=== PATIENT | female | born 1930 | race Caucasian/White ===

== ENCOUNTER 2016-02-22 13:50 | Inpatient (IN) | payer MEDICARE ==
[~2016-02-22] VITALS: Ht 157.5 cm; Wt 84.0 kg
[2016-02-22 13:46] VITALS: BP 176/63; PULSE 71; RESP 19; O2SAT 94
--- NOTE | 2016-02-22 14:09 | ED.REPORT ---
HPI-Trauma Minor / Fall Date of Service Feb 22, 2016 ED Provider: Raleigh Grimes MD 85 year old female with a hx of HTN, pacemaker (October 2013), CHF, CKD stage IV and osteoporosis presents with L humerus pain after falling 1 hour ago. Pain is exacerbated with movement. Pt was shopping at the [employer] when she suddenly fell in the aisle. Her family did not witness the event but heard the fall and were able to assess the patient right away. Pt is unsure if she tripped or if she had a syncopal episode. LOC is questionable. Pt has hx of similar with low BP. She had a pacemaker implanted 2 years ago. Additionally she complains of R knee pain with movement. Pt denies head trauma, neck pain, CP , SOB and is not anticoagulated. Nursing Notes Stated Complaint: WEAKNESS Chief Complaint: General Complaint Nursing Notes Reviewed: Yes Allergies: Coded Allergies: No Known Allergies (Unverified , 02/22/16) Scheduled Alendronate/Vitamin D3 (Alendronate/Vitamin D3) 1 Each Tablet 1 EACH PO WEEKLY Sundays Amlodipine (Amlodipine) 5 Mg Tablet 5 MG PO QAM Aspirin (Aspirin) 325 Mg Tablet 325 MG PO QAM Atorvastatin Calcium (Atorvastatin Calcium) 40 Mg Tablet 40 MG PO QAM Cyanocobalamin (Vitamin B-12) (Vitamin B-12) 1,000 Mcg Tab.subl 1,000 MCG SL QAM Ferrous Sulfate (Ferrous Sulfate) 325 Mg Tablet 325 MG PO QAM Furosemide (Furosemide) 20 Mg Tab 20 MG PO QAM Hydralazine (Hydralazine) 25 Mg Tablet 25 MG PO TID Metoprolol Tartrate (Metoprolol Tartrate) 75 Mg Tablet 75 MG PO BID [place]-3/Dha/Epa/Fish Oil (Fish Oil 1,000 mg Softgel) 1 Each Capsule 1 EACH PO QAM Ranitidine (Zantac) 150 Mg Tablet 150 MG PO BID Sertraline HCl (Sertraline) 50 Mg Tablet 50 MG PO QAM Scheduled PRN Acetaminophen (Acetaminophen) 325 Mg Tablet 650 MG PO QID PRN PRN For Pain Meclizine (Bonine) 25 Mg Tab.chew 12.5 MG PO TID PRN PRN vertigo General Time Seen by MD: 13:59 Chief Complaint Fall Hx Obtained From: Patient, Other family..., EMS Arrived By: Ambulance Onset Occurred: Just prior to arrival Symptom Duration: Since onset Caused by: Fall on ground Location: Arm left Quality: Painful Severity: Current: Moderate Associated with: Reports: Loss of consciousness (questionable), Denies: Chest pain, Headache, Neck pain, Shortness of breath, Vomiting Exacerbated by: Movement Past Medical History Past Medical History HTN, pacemaker (October 2013), CHF, CKD stage IV and osteoporosis Past Surgical History Reports: Pacemaker insertion Smoking History Unknown if Ever Smoker Social History Other Social History: Good social support Ambulatory Status Independent Review of Systems Basic Review of Systems Cardiovascular: No chest pain, No dyspnea on exertion, No orthopnea, No parox noct dyspnea, No palpitations GI: No abdominal pain, No anorexia, No nausea, No vomiting Constitutional: Denies: Fever Respiratory: Denies: Non-productive cough, Shortness of breath Musculoskeletal: Reports: Extremity pain, Denies: Back pain, Neck pain Neurologic: Reports: Change LOC (questionable), Denies: Headache, Numbness Complete sys rev & neg: except as marked. Physical Exam Initial Vital Signs Vital Signs (First) Date Time Temp Pulse Resp B/P Pulse Ox O2 Delivery O2 Flow Rate FiO2 02/22/16 13:46 36.3 71 19 176/63 94 Room Air Initial VS: Reviewed ENT: Conjunctiva normal, No scleral icterus Respiratory: Breath sounds normal, Clear to auscultation, No respiratory distress Cardiovascular: Regular rate & rhythm, Heart sounds normal, Intact distal pulses Abdomen / GI: Soft, Non-tender Skin: Warm, Dry, No cyanosis Neurologic: Alert, Oriented, Nonfocal Psychiatric: Mood/affect normal, Behavior normal, Normal thought content General/Constitutional: Awake, Alert, Cooperative Neck: Atraumatic, Supple, Full range of motion, No midline vertebral tend Head / Eyes: Atraumatic, Normocephalic, PERRL Upper Extremity / MS: Neurologic intact, Vascular intact TTP L shoulder Median, radial and ulnar nerves intact Lower Extremity / Pelvis / MS: Neurologic intact, Vascular intact Good ROM of R knee Small effusion R knee No significant tenderness to patella Interpretation & Diagnostics Lab Results Interpretation Result Diagram: 02/22/16 1440 02/22/16 1440 Test 02/22/16 14:40 White Blood Count 8.1th/mm3 (3.8-10.1) Red Blood Count 3.26mil/mm3 (3.90-5.20) Hemoglobin 9.4g/dL (12.0-15.6) Hematocrit 29.4% (35.0-46.0) Mean Corpuscular Volume 90.2fL (81-100) Mean Corpuscular Hemoglobin 28.8pg (27.0-35.0) Mean Corpuscular Hemoglobin Concent 32.0% (32.0-37.0) Red Cell Distribution Width 15.0% (12.3-15.4) Platelet Count 289bil/L (150-400) Neutrophils (%) (Auto) 66.8% (40-74) Lymphocytes (%) (Auto) 18.5% (14-46) Monocytes (%) (Auto) 10.2% (4-12) Eosinophils (%) (Auto) 3.4% (0-5) Basophils (%) (Auto) 0.5% (0-3) Sodium Level 137mEq/L (134-144) Potassium Level 4.0mEq/L (3.5-5.2) Chloride Level 98mEq/L (97-108) Carbon Dioxide Level 25mmol/L (18-29) Blood Urea Nitrogen 31mg/dL (8-27) Creatinine 1.87mg/dL (0.57-1.00) Estimat Glomerular Filtration Rate 37mL/min (>59) Glucose Level 109mg/dL (60-99) Calcium Level 8.5mg/dL (8.5-10.1) Total Bilirubin 0.6mg/dL (0.0-1.2) Aspartate Amino Transf (AST/SGOT) 24U/L (0-50) Alanine Aminotransferase (ALT/SGPT) 26U/L (0-32) Alkaline Phosphatase 88U/L (25-165) Total Protein 7.1g/dL (6.4-8.4) Albumin 4.0g/dL (3.4-5.0) General Lab Results Interp 1: Labs reviewed ECG Interpretation ECG Interpretation: Paced rhythm with a rate of 68. Time: 14:52 Interpreted by: ED physician X-Ray Interpretation Xray Interpretation: IMPRESSION: Comminuted patellar fracture. Dictated by: Funmilayo Javed MD, PhD on 02/22/2016 at 15:10 X-Ray Ordered: Knee right Interpretation / Wet Read by: Interpret - Radiologist Xray Interpretation: IMPRESSION: Left humeral head/neck fracture. Dictated by: Angelito BLISS Interpreted: Funmilayo Javed MD on 02/22/2016 at 15:05 X-Ray Ordered: Shoulder left Interpretation / Wet Read by: Interpret - Radiologist Re-Eval/Medical Decision Med Decision/Clinical Course 85 y.o. female with a possibly syncopal fall. She has 2 orthopedic injuries which are nonoperative would not individually render her immobile, I think she has a poor chance of being able to care for herself at home presently. Will admit to the hospitalist service for observation given concerned about syncope and hopefully can have a PT evaluation for safety and ambulation. Re-Evaluation/Progress : Time of Eval: 15:49 Re-Evaluation/Progress Note: Pt resting comfortably in bed. Updated pt of labs, ECG and imaging results. Recommended admission. Pt and family understand and agree with plan. All questions addressed. Code status discussed in the presence of family. Pt is DNR/DNI. Consultation #1: Referral / Consult Name: Kelvin Weber MD Consulted With: Orthopedic Call Returned at: 15:18 Note: Agrees it is likely to difficult to be mobile at home with outpatient follow up. Knee immobilizer knee. Sling for shoulder. Both fractures are non-operative. Consultation #2: Referral / Consult Name: Jonathan Klein MD Consulted With: Hospitalist Call Returned at: 16:18 Plaster Foreman: Will see patient, Agrees with eval, Agrees with plan, Accepts admit Counseled Regarding: Diagnosis, Lab results, Need for admission Discharge & Departure Impression: Primary Impression: Syncope Syncope type: unspecified Qualified Code: R55 - Syncope and collapse Additional Impressions: Fracture of humeral head, left, closed Encounter type: initial encounter Qualified Code: S42.292A - Other displaced fracture of upper end of left humerus, initial encounter for closed fracture Patellar fracture Encounter type: initial encounter Fracture type: closed Fracture morphology : comminuted Fracture alignment: displaced Laterality: right Qualified Code: S82.041A - Displaced comminuted fracture of right patella, initial encounter for closed fracture Disposition: ADMITTED TO HOSPITAL Discharge Condition All VS Reviewed: Yes Condition: Improved Scribe Attestation Portions of this note were transcribed by Vandana Rivera. I, (Dr. Grimes) personally performed the history, physical exam and medical decision-making; I reviewed and confirmed the accuracy of the information in the transcribed note. Signed by: Vandana Rivera. 02/22/2016, 1620 Raleigh Grimes MD Feb 22, 2016 14:09 Vandana Rivera Feb 22, 2016 14:15
[2016-02-22] MEDS ORDERED: HYDROmorphone 1 mg/mL Inj IM ONE (14:10)
[2016-02-22] MEDS ORDERED: Ondansetron 8 mg ODT Tablet PO ONE (14:10)
[2016-02-22 14:48] LABS: BASOPHILS % (AUTO) 0.5 % (0-3); EOSINOPHILS % (AUTO) 3.4 % (0-5); MONOCYTES % (AUTO) 10.2 % (4-12); Mean Corpuscular Hemoglobin 28.8 pg (27.0-35.0); Mean Corpuscular Volume 90.2 fL (81-100); NEUTROPHILS % (AUTO) 66.8 % (40-74); Platelet Count 289 bil/L (150-400)
--- NOTE | 2016-02-22 15:06 | DRSVH ---
PROCEDURE: X-RAY LEFT SHOULDER, MINIMUM TWO VIEWS ([id number]) INDICATIONS: shoulder/knee pain post fall TECHNIQUE: 3 views of the shoulder were acquired. COMPARISON: None. FINDINGS: Bones: Comminuted, mildly impacted left humeral head/neck fracture is present. Acromioclavicular linda nt is intact. No rib fracture seen. No pneumothorax. Soft tissues: No suspicious soft tissue calcifications. IMPRESSION: Left humeral head/neck fracture. Dictated by: Angelito BLISS Interpreted: Funmilayo Javed MD on 02/22/2016 at 15:05 Transcribed by: AARON on 02/22/2016 at 15:05 Approved by: Funmilayo Javed MD, PhD on 02/22/2016 at 16:11
--- NOTE | 2016-02-22 15:12 | DRSVH ---
PROCEDURE: X-RAY RIGHT KNEE, THREE VIEWS ([id number]) INDICATIONS: shoulder/knee pain post fall TECHNIQUE: 3 views of the knee were acquired. COMPARISON: None. FINDINGS: Bones: Comminuted fracture of the patella is noted. Soft tissues: Small suprapatellar joint effusion is noted. No suspicious soft tissue calcifications. IMPRESSION: Comminuted patellar fracture. Dictated by: Funmilayo Javed MD, PhD on 02/22/2016 at 15:10 Approved by: Funmilayo Javed MD, PhD on 02/22/2016 at 15:10
[2016-02-22] MEDS ORDERED: Polyethylene Glycol (PEG) 17 Gm Powder PO PRN (16:45)
[2016-02-22] MEDS ORDERED: Ondansetron 2 mg/mL 2 mL Inj IVPUSH PRN (16:45)
[2016-02-22] MEDS ORDERED: Alum-Mag Hydrox-Simeth 30 mL Suspension PO PRN (16:45)
[2016-02-22] MEDS ORDERED: METO75TA PO (16:56)
[2016-02-22] MEDS ORDERED: ASPI325T32 PO (16:56)
[2016-02-22] MEDS ORDERED: OMEG-38 PO (16:56)
[2016-02-22] MEDS ORDERED: ACET325T51 PO (16:56)
[2016-02-22] MEDS ORDERED: FUR20 PO (16:56)
[2016-02-22] MEDS ORDERED: ATOR40TA69 PO (16:56)
[2016-02-22] MEDS ORDERED: CYAN100017 SL (16:56)
[2016-02-22] MEDS ORDERED: ALEN70TA46 PO (16:56)
[2016-02-22] MEDS ORDERED: SERT50TA9 PO (16:56)
[2016-02-22] MEDS ORDERED: AMLO5TAB2 PO (16:56)
[2016-02-22] MEDS ORDERED: HYDR-3939 PO (16:56)
[2016-02-22] MEDS ORDERED: RANI150T11 PO (16:56)
[2016-02-22] MEDS ORDERED: FERR-83 PO (16:56)
[2016-02-22] MEDS ORDERED: MECL-114 PO (16:56)
--- NOTE | 2016-02-22 18:13 | PCM.HPMED ---
Subjective Date of Service Feb 22, 2016 Primary Provider: Admitting Physician: Jonathan Klein MD Primary Care Physician: Dinorah Attending Physician: Jonathan Klein MD Admit Status: From the Emergency Department, Admit to Red Team Chief Complaint: fall//1 h History of Present Illness: 85-year-old lady with past medical history of hypertension, CKD4, osteoporosis, pacemaker insertion 2014 was brought in by her daughters due to fall 1 or prior to presentation. Patient is from [place], came here to visit her daughter. She was in the mall with her daughter when she fell.daughter and family member were around the corner of [place] and did not see the patient fall.patient remembers falling down. No loss of consciousness. She denies feeling lightheaded or dizzy before falling.patient does not remember tripping over hitting anything.she was brought in for right knee and left shoulder pain. Did not hit head She has been eating and drinking as usual. She had 2 episodes of diarrhea this morning. She was recently started on diuretic for CHF. Lasix 20 mg by mouth daily Denies fever. Denies chest pain. Denies palpitation ED course: initial BP 176/63, heart rate 71, x-ray showed right patellar fracture and left humeral fracture Labs unremarkable except BNP 31, creatinine 1.87, hemoglobin 9.4 Review of Systems: A comprehensive review of systems performed. Pertinent positive and negatives included in history of present illness Allergies Coded Allergies: No Known Allergies (Unverified , 02/22/16) Home Medications Amlodipine 5 mg daily Aspirin 325 mammogram by mouth daily Atorvastatin 40 mg by mouth daily B12 1000 MCG daily iron sulfate 325 mg by mouth daily Fish oil 1000 mg by mouth daily Hydralazine 25 mg by mouth 3 times a day Metoprolol tartrate 50 mg by mouth twice a day Ranitidine 150 mg. He Sertraline 50 mg by mouth daily Alendronate 70 mg by mouth on Sundays PMH Hypertension CKD Osteoporosis CHF Surgical History Pacemaker insertion Cholecystectomy Hysterectomy Left tibial jazmyn Family History Reviewed and noncontributory Social History Hx Alcohol Use: No Hx Substance Use: No Smoking Status: Unknown if Ever Smoker Exam Vital Signs Vital Sign - Last Date Time Temp Pulse Resp B/P Pulse Ox O2 Delivery O2 Flow Rate FiO2 02/22/16 13:46 36.3 71 19 176/63 94 Room Air Exam Gen. patient is lying comfortably in hospital bed HEENT: Dry tongue and bucal mucosa.Head is normocephalic atraumatic, Pupils equal and reactive, extraocular movements intact, Lungs clear to auscultation bilaterally Heart regular rate and rhythm without murmurs gallops or rubs Abdomen soft nontender without hepatosplenomegaly Extremities :tenderness on left shoulder and right knee on passive movement Psych alert and oriented to person place and time Neuro cranial nerves II through XII are grossly intact Lymph: There is no lymphadenopathy appreciated in the cervical supra infraclavicular regions : no hernandez Lab and Diagnostics Result Diagram: 02/22/16 1440 02/22/16 1440 X-Rays, CTs and MRIs PROCEDURE: X-RAY RIGHT KNEE, THREE VIEWS ([id number]) INDICATIONS: shoulder/knee pain post fall TECHNIQUE: 3 views of the knee were acquired. COMPARISON: None. FINDINGS: Bones: Comminuted fracture of the patella is noted. Soft tissues: Small suprapatellar joint effusion is noted. No suspicious soft tissue calcifications. IMPRESSION: Comminuted patellar fracture. Dictated by: Funmilayo Javed MD, PhD on 02/22/2016 at 15:10 PROCEDURE : X-RAY LEFT SHOULDER, MINIMUM TWO VIEWS ([id number]) shoulder XR INDICATIONS: shoulder/knee pain post fall TECHNIQUE: 3 views of the shoulder were acquired. COMPARISON: None. FINDINGS: Bones: Comminuted, mildly impacted left humeral head/neck fracture is present. Acromioclavicular joint is intact. No rib fracture seen. No pneumothorax. Soft tissues: No suspicious soft tissue calcifications. IMPRESSION: Left humeral head/neck fracture. Dictated by: Angelito Baum [facility] Interpreted: Funmilayo Javed MD on 02/22/2016 at 15:05 Assessment & Plan 85-year-old lady with past medical history of hypertension, CKD4, osteoporosis, pacemaker insertion 2013 was brought in by her daughters due to fall # Suspected syncope, POA, acute -fall most likely due to syncope given patient does not remember the entire circumstance of fall -Syncope likely due to dehydration given diarrhea this morning,dry tongue, recent initiation of diuretic -will request pacemaker interrogation -NS 80ml/h -Discontinue Lasix # Left Humerus and right patella fracture -Pain control with morphine -ED consulted orthopedics, recommended nonoperative management -PT eval -dvt Prophylaxis tomorrow if no procedures planned #Hypertension -Resume home amlodipine and hydralazine # Recent diagnosis of CHF - Dehydrated clinically, stop Lasix - Continue metoprolol Discussed CODE STATUS, she is DNR/DNI Patient admitted under inpatient status with expected length of stay > 2 midnights for severity of present symptoms, complexities of treatment plan and risk for adverse events Jonathan Klein MD Feb 22, 2016 18:13
[2016-02-22 18:22] VITALS: BP 167/67; PULSE 69; RESP 16; O2SAT 94
[2016-02-22 18:34] VITALS: BP 155/74; PULSE 65; RESP 20; O2SAT 90
[2016-02-22] MEDS: 0.9% Sodium Chloride 1,000 ML IV SCH (18:37)
--- NOTE | 2016-02-22 18:42 | PCM.CONORT ---
Subjective Date of Surgery: Feb 22, 2016 Surgeon Admitting Provider:Jonathan Klein MD Attending Provider:Jonathan Klein MD Primary Care Physician:Dinorah Orthopedic surgeon: Kelvin Weber M.D. 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 She is visiting the [facility] from her home in [place], [place]. The patient unfortunately collapsed in a local retail store, striking her right knee and left shoulder as she fell. The patient is unsure of the exact mechanism of injury as there may have been a brief loss of consciousness about the time of the fall. The patient could not weight-bear through her painful right knee or use her painful left shoulder after the incident. The injuries were closed and not associated with any neurovascular symptoms. The patient was brought by ambulance to [facility] emergency room where x-rays of her right knee and left shoulder revealed a comminuted, minimally displaced right patella fracture and moderately comminuted and impacted left proximal humerus surgical neck fracture. The patient was admitted to the hospitalist service for further evaluation and workup. An orthopedic surgical consultation has been requested for treatment advice regarding her right knee and left shoulder injuries. The patient denies prior history of left shoulder or right knee symptomatology or trauma. Allergy Allergies: Coded Allergies: No Known Allergies (Unverified , 02/22/16) Medications Acetaminophen (Acetaminophen) 325 Mg Tablet 650 MG PO QID PRN PRN For Pain ( Reported) Alendronate/Vitamin D3 (Alendronate/Vitamin D3) 1 Each Tablet 1 EACH PO WEEKLY ( Reported) Sundays Last Taken: Unknown Dose on 02/17/16 Amlodipine (Amlodipine) 5 Mg Tablet 5 MG PO QAM (Reported) Last Taken: Unknown Dose on 02/22/16 0800 Aspirin (Aspirin) 325 Mg Tablet 325 MG PO QAM (Reported) Last Taken: Unknown Dose on 02/22/16 0800 Atorvastatin Calcium ( Atorvastatin Calcium) 40 Mg Tablet 40 MG PO QAM (Reported) Last Taken: Unknown Dose on 02/22/16 0800 Cyanocobalamin (Vitamin B-12) ( Vitamin B-12) 1,000 Mcg Tab.subl 1,000 MCG SL QAM (Reported) Last Taken: Unknown Dose on 02/22/16 0800 Ferrous Sulfate (Ferrous Sulfate) 325 Mg Tablet 325 MG PO QAM (Reported) Last Taken: Unknown Dose on 02/22/16 08 Furosemide (Furosemide) 20 Mg Tab 20 MG PO QAM (Reported) Last Taken: Unknown Dose on 02/22/16 08 Hydralazine (Hydralazine) 25 Mg Tablet 25 MG PO TID (Reported) Last Taken: Unknown Dose on 02/22/16799 Meclizine (Bonine) 25 Mg Tab.chew 12.5 MG PO TID PRN PRN vertigo (Reported) Metoprolol Tartrate (Metoprolol Tartrate) 75 Mg Tablet 75 MG PO BID (Reported) Last Taken: Unknown Dose on 02/22/16 08 [place]-3/Dha/Epa/Fish Oil (Fish Oil 1,000 mg Softgel) 1 Each Capsule 1 EACH PO QAM (Reported) Last Taken: Unknown Dose on 02/22/16799 Ranitidine (Zantac) 150 Mg Tablet 150 MG PO BID (Reported) Last Taken: Unknown Dose on 02/22/16799 Sertraline HCl (Sertraline) 50 Mg Tablet 50 MG PO QAM (Reported) Last Taken: Unknown Dose on 02/22/16 0800 History History of ENT Problems?: No Hx of Heart Problems?: Yes Cardiovascular History: Positive for:: Congestive Heart Failure Pacemaker Denies:: Hypertension Hx of Respiratory Problem?: Yes Other Resp Pertinent History: diagnosed with sleep apnea, not set up with cpap yet Hx Neurologic Problems?: Yes Neurological History: Positive for:: Dizziness (syncopal episodes) Hx of GI Problems?: No Hx of Problems?: Yes Genitourinary History: Positive for:: Urinary Tract Infection Other Pertinent History: CKD stage 3 Female Hx: Denies:: Currently Endometriosis Pelvic Inflammatory Problems with Breasts? Hx Musculoskeletal Problems?: Yes Hx of Psycho/Social Problems?: Yes Psycho Social History: Positive for:: Hx Depression Hx Surgeries?: Yes (pacemaker) Hx Any Other Health Problems?: Yes Other History: Positive for:: Hospitalization Denies:: Cancer Thyroid Disease History Blood Transfusions: Positive for:: Accept Blood Products? Denies:: Blood Transfusions Hx Diabetes: Yes (diet-controlled) Hx Alcohol Use: NoHx Substance Use: No Smoking Status: Unknown if Ever Smoker Objective Exam Objective Imaging Patient Name: JALEN UQEZADA MR#: [id number] Location: [facility] Ordering Phys: Raleigh Grimes MD Date of Service: 02/22/161408 PROCEDURE: X-RAY RIGHT KNEE, THREE VIEWS ([id number]) INDICATIONS: shoulder/knee pain post fall TECHNIQUE: 3 views of the knee were acquired. COMPARISON: None. FINDINGS: Bones: Comminuted fracture of the patella is noted. Soft tissues: Small suprapatellar joint effusion is noted. No suspicious soft tissue calcifications. IMPRESSION: Comminuted patellar fracture. Dictated by: Funmilayo Javed MD, PhD on 02/22/2016 at 15:10 Approved by: Funmilayo Javed MD, PhD on 02/22/2016 at 15:10 Patient Name: JALEN QUEZADA MR#: [id number] Location: [facility] Ordering Phys: Raleigh Grimes MD Date of Service: 02/22/161408 PROCEDURE: X-RAY LEFT SHOULDER, MINIMUM TWO VIEWS ([id number]) INDICATIONS: shoulder/knee pain post fall TECHNIQUE: 3 views of the shoulder were acquired. COMPARISON: None. FINDINGS: Bones: Comminuted, mildly impacted left humeral head/neck fracture is present. Acromioclavicular joint is intact. No rib fracture seen. No pneumothorax. Soft tissues: No suspicious soft tissue calcifications. IMPRESSION: Left humeral head/neck fracture. Dictated by: Angelito Baum [facility] Interpreted: Funmilayo Javed MD on 02/22/2016 at 15:05 Transcribed by: AARON on 02/22/2016 at 15:05 Approved by: Funmilayo Javed MD, PhD on 02/22/2016 at 16:11 Vital Signs & I/O Vital Sign- Last 8 Hours Date Time Temp Pulse Resp B/P Pulse Ox O2 Delivery O2 Flow Rate FiO2 02/22/16 13:46 36.3 71 19 176/63 94 Room Air Lab & Micro Results Laboratory Tests Test 02/22/16 14:40 White Blood Count 8.1th/mm3 (3.8-10.1) Red Blood Count 3.26mil/mm3 (3.90-5.20) Hemoglobin 9.4g/dL (12.0-15.6) Hematocrit 29.4% (35.0-46.0) Mean Corpuscular Volume 90.2fL (81-100) Mean Corpuscular Hemoglobin 28.8pg (27.0-35.0) Mean Corpuscular Hemoglobin Concent 32.0% (32.0-37.0) Red Cell Distribution Width 15.0% (12.3-15.4) Platelet Count 289bil/L (150-400) Neutrophils (%) (Auto) 66.8% (40-74) Lymphocytes (%) (Auto) 18.5% (14-46) Monocytes (%) (Auto) 10.2% (4-12) Eosinophils (%) (Auto) 3.4% (0-5) Basophils (%) (Auto) 0.5% (0-3) Sodium Level 137mEq/L (134-144) Potassium Level 4.0mEq/L (3.5-5.2) Chloride Level 98mEq/L (97-108) Carbon Dioxide Level 25mmol/L (18-29) Blood Urea Nitrogen 31mg/dL (8-27) Creatinine 1.87mg/dL (0.57-1.00) Estimat Glomerular Filtration Rate 37mL/min (>59) Glucose Level 109mg/dL (60-99) Calcium Level 8.5mg/dL (8.5-10.1) Total Bilirubin 0.6mg/dL (0.0-1.2) Aspartate Amino Transf (AST/SGOT) 24U/L (0-50) Alanine Aminotransferase (ALT/SGPT) 26U/L (0-32) Alkaline Phosphatase 88U/L (25-165) Total Protein 7.1g/dL (6.4-8.4) Albumin 4.0g/dL (3.4-5.0) Result Diagram: 02/22/16 14402/22/16 144 Review of Systems: Constitutional: Negative, except as otherwise mentioned in the history above. Ophthalmologic: Negative, except as otherwise mentioned in the history above. Cardiovascular: Negative, except as otherwise mentioned in the history above. Respiratory: Negative, except as otherwise mentioned in the history above. Gastrointestinal: Negative, except as otherwise mentioned in the history above. Genitourinary: Negative, except as otherwise mentioned in the history above. Musculoskeletal: Negative, except as otherwise mentioned in the history above. Neurological: Negative, except as otherwise mentioned in the history above. Psychiatric: Negative, except as otherwise mentioned in the history above. Hematologic/Lymphatic: Negative, except as otherwise mentioned in the history above. Allergic/Immunologic: Negative, except as otherwise mentioned in the history above. H&P Surgical Exam Exam General: Alert, Oriented X3, Cooperative, Mild Distress Musculoskeletal: Right knee: Skin is intact, with minimal heat and no erythema. Small knee effusion, no obvious deformity. Tenderness to palpation of the patella, but no palpable defect. Range of motion 0 30 flexion. There is discomfort with knee flexion beyond 30. Knee is grossly stable to varus valgus stress and AP translation. Neurovascular exam: Superficial peroneal, deep peroneal and saphenous sensation intact to light touch. Ankle dorsiflexion, extensor hallucis and ankle plantarflexion 4/5 motor power. Dorsalis pedis pulse is palpable. Left shoulder: Skin is intact, with minimal heat and no erythema. Mild generalized swelling, but no gross deformity. Tenderness to palpation of the proximal humerus, but no gross crepitus. There is discomfort to gentle attempt at passive range of motion, but no gross instability. No tenderness to palpation of the distal arm, elbow, forearm, wrist or hand. Neurovascular exam: Median, ulnar, radial, axillary sensation intact to light touch. Flexor pollicis longus, interossei, extensor pollicis longus 4/5 motor power. Radial pulse is palpable. H&P Preop Plan Impression #1 Comminuted, minimally displaced right patella fracture in elderly patient with multiple medical comorbidities following ground-level fall 02/22/2016. #2 Comminuted, mild to moderately impacted, extra-articular left proximal humerus fracture in elderly patient with multiple medical comorbidities following ground-level fall 02/22/2060. Problems: Risks & Benefits * We have reviewed the risks and benefits as well as the alternatives to surgery. All questions were answered to the patient's satisfaction and a counseling note to that effect. The patient has provided informed consent. * I have counseled the patient regarding the deleterious effects that smoking during the perioperative period can have upon wound healing, infection rates, and the overall rate of complications. Plan I have reviewed the diagnoses with the patient and her visiting family members as well as explaining treatment options. I would recommend nonsurgical management for her orthopedic injuries and mobilize her as soon as she is able with the assistance of physical and occupational therapy. She may weight-bear as tolerated through her right lower extremity while wearing a knee immobilizer to keep her knee in 0 extension. The patient may come out of her knee immobilizer for skin hygiene and showers. Knee range of motion and rehabilitation can be advanced 6 weeks post injury based on favorable knee x- rays. The patient may otherwise range her knee from 0 - 60 flexion with assistance and initiate isometric quadriceps strengthening exercises. The patient's left shoulder fracture can be managed with a left shoulder sling with the patient coming out of her sling on a regular basis throughout the day for left shoulder pendulum exercises, elbow, wrist and hand range of motion exercises. She should refrain from any more strenuous left upper extremity activities including weightbearing for the next 6 weeks. Shoulder rehabilitation can be advanced 6 weeks post injury based on favorable shoulder x -rays. The patient may benefit from [facility] facility placement for physical and occupational therapy and assistance with mobilization and ADLs. Orthopedic surgical follow-up should be obtained after her return to her home in [place], [place] for x-ray and clinical follow-up. copies to: Kelvin Weber MD, Michael G.E MD Feb 22, 2016 18:42
--- NOTE | 2016-02-22 19:00 | NUR ---
Arrival on [facility] Pt transferred to [facility] from ED at 1820 hrs. Alert and oriented. Daughters at bedside. PIV asymptomatic and patent. Sling in place on left arm. Immobilizer in place on right knee. Pt c/o pain at 10/02. All personal possessions with pt. Had to wait for pharmacy to verify medications before administration of pain meds.
[2016-02-22] MEDS: oxyCODONE-Acetamin 5-325 mg Tablet PO PRN (19:34)
--- NOTE | 2016-02-22 20:00 | DRSVH ---
PROCEDURE: X-RAY CHEST ONE VIEW, PORTABLE ([id number]) INDICATIONS: fall TECHNIQUE: One view of the chest was acquired. COMPARISON: None. FINDINGS: Surgical changes and devices: Dual-lead cardiac pacer.. Lungs and pleura: No pleural effusions or pneumothorax. Lungs are clear. Mediastinum: Mediastinal contours appear normal. Heart size is normal. Bones and chest wall: No suspicious bony lesions. Overlying soft tissues appear unremarkable. IMPRESSION: No acute cardiopulmonary disease process. Dictated by: Funmilayo Javed MD, PhD on 02/22/2016 at 19:59 Approved by: Funmilayo Javed MD, PhD on 02/22/2016 at 19:59
[2016-02-22 20:36] VITALS: BP 154/67; PULSE 70; RESP 22; O2SAT 92
[2016-02-23] VITALS (10 sets, daily range): BP systolic 114–162; BP diastolic 59–73; PULSE 58–84; RESP 16–18; O2SAT 93–98
[2016-02-23 03:52] LABS: APPEARANCE,URINE CLEAR (CLEAR,HAZY); COLOR,URINE STRAW (YELLOW); OCCULT BLOOD,URINE NEGATIVE (NEGATIVE); PH,URINE 5.5 (5.0-8.0); UROBILINOGEN,URINE NORMAL (NORMAL)
[2016-02-23] MEDS: 0.9% Sodium Chloride 1,000 ML IV SCH (05:15)
--- NOTE | 2016-02-23 05:21 | NUR ---
Pain Patient has 2 family members rooming in. Pain has subsided and she is resting comfortably. Continuous pulse ox frequently shows low SaO2, increase nc to oxy mask and up to 3L. Patient reports no chest pain, CSM intact in all extremeties. Arm in sling and immobolizer on leg. Will continue to monitor
[2016-02-23] MEDS: oxyCODONE-Acetamin 5-325 mg Tablet PO PRN (05:58)
[2016-02-23 08:22] LABS: BASOPHILS % (AUTO) 0.3 % (0-3); EOSINOPHILS % (AUTO) 1.7 % (0-5); MONOCYTES % (AUTO) 16.2 % (4-12); Mean Corpuscular Hemoglobin 28.2 pg (27.0-35.0); Mean Corpuscular Volume 91.8 fL (81-100); NEUTROPHILS % (AUTO) 63.1 % (40-74); Platelet Count 304 bil/L (150-400)
[2016-02-23] MEDS ORDERED: Omega-3 Fatty Acids 1,000 mg Capsule PO SCH (08:30)
[2016-02-23 08:40] LABS: Magnesium 2.1 mg/dL (1.6-2.6)
--- NOTE | 2016-02-23 09:36 | NUR ---
Evaluation completed. Please go to "Notes" then click on "Assessments and Notes" (bottom left corner of screen). Then select appropriate discipline tab on top of screen.
[2016-02-23] MEDS: Omega-3 Fatty Acids 1,000 mg Capsule PO SCH (09:46)
--- NOTE | 2016-02-23 13:35 | PCM.PNMED ---
Subjective Date of Service Feb 23, 2016 Subjective Pain controlled. Pacemaker interrogated and unremarkable.Arielle noted,unknown baseline Exam Vital Signs Vital Sign - Last Date Time Temp Pulse Resp B/P Pulse Ox O2 Delivery O2 Flow Rate FiO2 02/23/16 09:59 Supplement Oxygen 02/23/16 09:54 36.6 61 17 136/59 96 2.00 Intake and Output 02/22/16 02/22/16 02/23/16 Cumulative From/Thru 15:00 23:00 07:00 02/22/16 18:55 - 02/23/16 05:20 Intake Total 450 ml 450 ml Output Total 550 ml 550 ml Balance -100 ml -100 ml Intake Oral 450 ml 450 ml Output Urine Total 550 ml 550 ml # Bowel Movements 0 0 IVs and Medications Medications Reviewed: Medications were reviewed in detail Lab and Diagnostics Result Diagram: 02/23/16 0718 02/23/16 0718 X-Rays, CTs and MRIs PROCEDURE: X-RAY RIGHT KNEE, THREE VIEWS ([id number]) INDICATIONS: shoulder/knee pain post fall TECHNIQUE: 3 views of the knee were acquired. COMPARISON: None. FINDINGS: Bones: Comminuted fracture of the patella is noted. Soft tissues: Small suprapatellar joint effusion is noted. No suspicious soft tissue calcifications. IMPRESSION: Comminuted patellar fracture. Dictated by: Funmilayo Javed MD, PhD on 02/22/2016 at 15:10 PROCEDURE : X-RAY LEFT SHOULDER, MINIMUM TWO VIEWS ([id number]) shoulder XR INDICATIONS: shoulder/knee pain post fall TECHNIQUE: 3 views of the shoulder were acquired. COMPARISON: None. FINDINGS: Bones: Comminuted, mildly impacted left humeral head/neck fracture is present. Acromioclavicular joint is intact. No rib fracture seen. No pneumothorax. Soft tissues: No suspicious soft tissue calcifications. IMPRESSION: Left humeral head/neck fracture. Dictated by: Angelito Baum [facility] Interpreted: Funmilayo Javed MD on 02/22/2016 at 15:05 Assessment & Plan 85 year lady with past medical history of hypertension, CKD4, osteoporosis, pacemaker insertion 2014 was brought in by her daughters due to fall # Suspected syncope, POA, acute -fall most likely due to syncope given patient does not remember the entire circumstance of fall -Syncope likely due to dehydration given diarrhea this morning,dry tongue, recent initiation of diuretic - pacemaker interrogation unremarkable -NS 80ml/h -Discontinue Lasix # Left Humerus and right patella fracture -Pain control with morphine -ED consulted orthopedics, recommended nonoperative management, "weight-bear as tolerated through her right lower extremity while wearing a knee immobilizer to keep her knee in 0 extension. The patient may otherwise range her knee from 0 - 60 flexion with assistance and initiate isometric quadriceps strengthening exercises. The patient's left shoulder fracture can be managed with a left shoulder sling with the patient coming out of her sling on a regular basis throughout the day for left shoulder pendulum exercises, elbow, wrist and hand range of motion exercises. She should refrain from any more strenuous left upper extremity activities including weightbearing for the next 6 weeks. Shoulder rehabilitation can be advanced 6 weeks post injury based on favorable shoulder x-rays. The patient may benefit from halfway facility placement for physical and occupational therapy and assistance with mobilization and ADLs. Orthopedic surgical follow-up should be obtained after her return to her home in [place], [place] for x-ray and clinical follow-up." -PT eval -dvt Prophylaxis lovenox #Hypertension -Resume home amlodipine and hydralazine # ARIELLE on CKD -Creatinine slightly worse at 2.21 from 1.87 yesterday. Unknown baseline. Patient is from [place] -will do KUB US # Recent diagnosis of CHF - Dehydrated clinically, stop Lasix - Continue metoprolol Discussed CODE STATUS, she is DNR/DNI Disposition: PT recommends SNF, Family initially wanted SNF in [place],now opted to go to SNF around this area ,needs to stay inpatient for 1 more day pending kidney ultrasound, on IV fluids given ARIELLE Jonathan Klein MD Feb 23, 2016 13:35
--- NOTE | 2016-02-23 14:23 | DRSVH ---
PROCEDURE: US RETROPERITONEAL SONOGRAM ([id number]) INDICATIONS: 85 year-old female with acute renal injury. TECHNIQUE: Real-time scanning was performed of the kidneys and bladder, with image documentation. COMPARISON: None. FINDINGS: Kidneys: Kidneys are normal in size. Right kidney measures 9.6 cm long; left kidney measures 8.2 cm long. Right renal cortical thickness is 0.9 cm; left renal cortical thickness is 0.9 cm. Renal cor tical echotexture is normal. No hydronephrosis or nephrolithiasis. No suspicious solid mass lesions . Bladder: Pre-void bladder volume is 208 mL. Patient could not void during the exam. Pre-void images demonstrate no intraluminal masses or stones. On pre-void images, bilateral ureteral jets are noted with color Doppler interrogation. Miscellaneous: No free pelvic fluid. IMPRESSION: 1. Normal appearance to both kidneys, without hydronephrosis. 2. Patient was unable to void during the examination, raising the question of bladder outlet obstruct ion. Dictated by: Easton Márquez M.D. on 02/23/2016 at 14:21 Approved by: Easton Márquez M.D. on 02/23/2016 at 14:21
--- NOTE | 2016-02-23 14:59 | NUR ---
Pain / GI Pt resting in bed and sleeping much of the shift today. She is fairly comfortable with the left arm sling and right knee immobilizer in place. Reports she has no pain when not moving and declined Percocet. Encouraged pt to take some Tylenol now so her pain would not become too great while she is asleep. Pt agreed to this plan. Pt has not had a BM since admission yesterday. She stated she does not feel constipated and declined laxatives. She feels she will be able to have a BM in the morning. Care continues.
--- NOTE | 2016-02-23 16:18 | NUR ---
Social Work Note: Initial Assessment Data& Assessment: EMR reviewed. SW met with pt and pt daughters at bedside to discuss discharge planning, SW role explained. Bev Huang is a 85 year old female admitted on 02/22/2016 for syncope and right patella fx and left humeral fx. Pt has [place] [employer] insurance. Pt lives in [place] and was here visiting her other daughter in [place] when she fell. Pt is independent at baseline in a one story home with a whey department operator house keeper who also preps meals. Pt daughter Jennifer provides transportation for pt at baseline. Pt has had HH services in [place] int he past. Pt denies SNF hx. Pt has a FWW at home. Pt provided with DPOA paperwork. MD is recommending SNF at time of discharge. SW contacted pt insurance company and inquired about SNF benefit, they informed SW that a prior auth is required and not possible until regular business hours during the week. SNF list provided to pt. Pt has preference for [facility] in [place]. SW completed referral to [facility]. SW explained that pt insurance can either approve or deny SNF stay. They communicated understanding. Pt and pt daughters deny any needs at this time. SW to continue to follow. Plan: Anticipated discharge to [facility] in [place] pending acceptance and insurance authorization after the hol weekend. Pt and pt daughters deny any needs at this time. SW to continue to follow. ELIEZER Thomason Addendum: 02/23/16 at 1623 by CYNDI WILSON Amended: Links added.
--- NOTE | 2016-02-23 16:33 | NUR ---
JACOB Signed ELIEZER Thomason
--- NOTE | 2016-02-23 17:37 | NUR ---
[facility] signed
[2016-02-23] MEDS ORDERED: 0.9% Sodium Chloride 1,000 ML ONE (19:46)
[2016-02-24] VITALS (10 sets, daily range): BP systolic 133–175; BP diastolic 62–78; PULSE 59–97; RESP 16–20; O2SAT 94–97
[2016-02-24] MEDS: oxyCODONE-Acetamin 5-325 mg Tablet PO PRN ×4 (02:19→23:56)
[2016-02-24] MEDS: Omega-3 Fatty Acids 1,000 mg Capsule PO SCH (09:11)
[2016-02-24 09:39] LABS: BASOPHILS % (AUTO) 0.4 % (0-3); EOSINOPHILS % (AUTO) 1.7 % (0-5); MONOCYTES % (AUTO) 10.8 % (4-12); Mean Corpuscular Hemoglobin 28.9 pg (27.0-35.0); Mean Corpuscular Volume 94.2 fL (81-100); NEUTROPHILS % (AUTO) 70.8 % (40-74); Platelet Count 263 bil/L (150-400)
[2016-02-24] MEDS: 0.9% Sodium Chloride 1,000 ML IV SCH ×2 (11:10→22:08)
--- NOTE | 2016-02-24 11:44 | NUR ---
Social Work Note: Continued Discharge Planning Data& Assessment: Michelle Lumber Stacker from [facility] informed SW that they are not in network with pt insurance and it would be a 20% co-pay for room and board and every service and medication received while at the SNF. Pt insurance company is not open today for any prior authorizations. After further research on [employer] web site, the closest in network facility would be in [facility]. NINO informed pt daughter Vicky ([phone]) of this information. Pt daughter requested quote for [facility]. SW received a quote from [place] [employer] of at least $102 daily for room and board not incorporating the potential services and medication costs she may accumulate while at the SNF. SW to follow up with pt and pt daughter regarding discharge planning. SW to continue to follow. Plan: Anticipated to SNF private pay vs. Home with daughter. SW to follow up with pt and pt daughter regarding discharge planning. SW to continue to follow. ELIEZER Thomason Addendum: 02/24/16 at 1341 by CYNDI WILSON NINO spoke with pt daughter Vicky who explained that the family would like pt to go to [facility] and are agreeable to pay the co pays that the pt will accumulate while receiving rehab. NINO contacted clinical training coordinator Michelle from [facility] to explain that pt family is agreeable to the cost of SNF stay outside of what her insurance will cover. Per pt is getting closer to being medically ready for discharge. NINO to continue to follow. ELIEZER Thomason
--- NOTE | 2016-02-24 15:06 | PCM.PNMED ---
Subjective Date of Service Feb 24, 2016 Subjective No new complaints. Arielle continues to worsen. Ultrasound of Kidneys Unremarkable Exam Vital Signs Vital Sign - Last Date Time Temp Pulse Resp B/P Pulse Ox O2 Delivery O2 Flow Rate FiO2 02/24/16 13:21 36.6 59 16 133/75 95 Nasal Cannula 2.00 Intake and Output 02/23/16 02/23/16 02/24/16 Cumulative From/Thru 15:00 23:00 07:00 02/22/16 18:55 - 02/24/16 06:59 Intake Total 969 ml 2003 ml 464 ml 3886 ml Output Total 1350 ml 750 ml 2650 ml Balance 969 ml 653 ml -286 ml 1236 ml Intake Oral 1120 ml 250 ml 1820 ml IV Total 969 ml 883 ml 214 ml 2066 ml Output Urine Total 1350 ml 750 ml 2650 ml # Voids 3 3 # Bowel Movements 0 0 Exam Gen. patient is lying comfortably in hospital bed HEENT: Dry tongue and bucal mucosa.Head is normocephalic atraumatic, Pupils equal and reactive, extraocular movements intact, Lungs clear to auscultation bilaterally Heart regular rate and rhythm without murmurs gallops or rubs Abdomen soft nontender without hepatosplenomegaly Extremities :tenderness on left shoulder and right knee on passive movement Psych alert and oriented to person place and time Neuro cranial nerves II through XII are grossly intact Lymph: There is no lymphadenopathy appreciated in the cervical supra infraclavicular regions : no hernandez IVs and Medications Medications Reviewed: Medications were reviewed in detail Lab and Diagnostics Result Diagram: 02/24/1615 02/24/16 0915 X-Rays, CTs and MRIs PROCEDURE: X-RAY RIGHT KNEE, THREE VIEWS ([id number]) INDICATIONS: shoulder/knee pain post fall TECHNIQUE: 3 views of the knee were acquired. COMPARISON: None. FINDINGS: Bones: Comminuted fracture of the patella is noted. Soft tissues: Small suprapatellar joint effusion is noted. No suspicious soft tissue calcifications. IMPRESSION: Comminuted patellar fracture. Dictated by: Funmilayo Javed MD, PhD on 02/22/2016 at 15:10 PROCEDURE : X-RAY LEFT SHOULDER, MINIMUM TWO VIEWS ([id number]) shoulder XR INDICATIONS: shoulder/knee pain post fall TECHNIQUE: 3 views of the shoulder were acquired. COMPARISON: None. FINDINGS: Bones: Comminuted, mildly impacted left humeral head/neck fracture is present. Acromioclavicular joint is intact. No rib fracture seen. No pneumothorax. Soft tissues: No suspicious soft tissue calcifications. IMPRESSION: Left humeral head/neck fracture. Dictated by: Angelito BLISS Interpreted: Funmilayo Javed MD on 02/22/2016 at 15:05 US KUB IMPRESSION: 1. Normal appearance to both kidneys, without hydronephrosis. 2. Patient was unable to void during the examination, raising the question of bladder outlet obstruction. Dictated by: Easton Márquez M.D. on 02/23/2016 at 14:21 Assessment & Plan 85 year lady with past medical history of hypertension, CKD4, osteoporosis, pacemaker insertion 2014 was brought in by her daughters due to fall # Suspected syncope, POA, acute -fall most likely due to syncope given patient does not remember the entire circumstance of fall -Syncope likely due to dehydration given diarrhea this morning,dry tongue, recent initiation of diuretic - pacemaker interrogation unremarkable -NS 80ml/h -Discontinue Lasix # Left Humerus and right patella fracture -Pain control with morphine -ED consulted orthopedics, recommended nonoperative management, "weight-bear as tolerated through her right lower extremity while wearing a knee immobilizer to keep her knee in 0 extension. The patient may otherwise range her knee from 0 - 60 flexion with assistance and initiate isometric quadriceps strengthening exercises. The patient's left shoulder fracture can be managed with a left shoulder sling with the patient coming out of her sling on a regular basis throughout the day for left shoulder pendulum exercises, elbow, wrist and hand range of motion exercises. She should refrain from any more strenuous left upper extremity activities including weightbearing for the next 6 weeks. Shoulder rehabilitation can be advanced 6 weeks post injury based on favorable shoulder x-rays. The patient may benefit from detention facility placement for physical and occupational therapy and assistance with mobilization and ADLs. Orthopedic surgical follow-up should be obtained after her return to her home in [place], [place] for x-ray and clinical follow-up." -PT eval -dvt Prophylaxis lovenox #Hypertension -Resume home amlodipine and hydralazine # ARIELLE on CKD -Creatinine slightly worse at 2.4 from 1.87. Unknown baseline. Patient is from [place] - KUB US no hydro,PVR 130ml -monitor,serial PVR # Recent diagnosis of CHF - Dehydrated clinically, stop Lasix - Continue metoprolol Discussed CODE STATUS, she is DNR/DNI Disposition: PT recommends SNF, Family initially wanted SNF in [place],now opted to go to SNF around this area ,needs to stay inpatient for 1 more day given worsening ARIELLE , on IV fluids given ARIELLE VTE Mechanical Devices: Intermittant Pneumatic CD Jonathan Klein MD Feb 24, 2016 15:06
--- NOTE | 2016-02-24 16:34 | NUR ---
Bladder Scan Per MD had pt void. Pt voided 75 mL. Bladder scanned and pt had residual of 168. Did not meet criteria to place Buck. MD aware. Will re-evaluate tomorrow.
[2016-02-24] MEDS ORDERED: ALPRAZolam 0.5 mg Tablet PO PRN (16:50)
--- NOTE | 2016-02-24 18:28 | NUR ---
Spirituality/Anxiety Pt was praying out loud for over the course of the hour. She was asking god to heal her and she was saying that it is not her time to go. Her daughter said that she prays and speaks in tongues often but it does not usually last this long. Daughter expressed concern about the pt having some anxiety about being in the hospital. MD was notified and an order for Ativan prn was written. Pt said that she was just praying and was not having anxiety. Talked with pt awhile and she is A&Ox3 and not expressing any anxiety. VSS. Pt would like a visit from the call center operator. Will pass it along as they are not here today. Will continue to monitor.
[2016-02-25 02:30] VITALS: BP 152/71; PULSE 60; RESP 18; O2SAT 95
--- NOTE | 2016-02-25 03:10 | NUR ---
Activity/Pain Patient in bed all of shift, using bedpan for needs. Pain to left arm increases with bedpan use/repositioning. Receiving 0.5 tab of Percocet, per patient request, for pain management. Results mostly effective, did require 2mg Morphine IVP for breakthrough pain x1 at beginning of shift. Currently resting with eyes closed. Daughter remains at bedside. Addendum: 02/25/16 at 0545 by LATISHA MUNROE RN IVF total this shift= 1294 ml. Pump not cleared on previous shift.
[2016-02-25 07:01] LABS: BASOPHILS % (AUTO) 0.2 % (0-3); EOSINOPHILS % (AUTO) 0.9 % (0-5); MONOCYTES % (AUTO) 14.5 % (4-12); Mean Corpuscular Hemoglobin 28.7 pg (27.0-35.0); Mean Corpuscular Volume 94.7 fL (81-100); NEUTROPHILS % (AUTO) 70.6 % (40-74); Platelet Count 249 bil/L (150-400)
[2016-02-25 07:23] LABS: Magnesium 1.8 mg/dL (1.6-2.6); Phosphorus 4.6 mg/dL (2.5-4.9)
[2016-02-25 07:42] VITALS: BP 158/68; PULSE 64; RESP 16; O2SAT 96
[2016-02-25 08:00] VITALS: PULSE 65
[2016-02-25] MEDS ORDERED: Calcium GLUCO 10% (Gm) 1 Gm/10 mL 50 mL Inj IV ONE (08:10)
[2016-02-25] MEDS: Omega-3 Fatty Acids 1,000 mg Capsule PO SCH (08:12)
[2016-02-25] MEDS ORDERED: Calcium GLUCOnate 10% 1 Gm/50 mL NS IV ONE ×2 (08:25)
[2016-02-25] MEDS ORDERED: Lactulose 20 Gm/30 mL 30 mL Syrup PO ONE (09:00)
--- NOTE | 2016-02-25 11:09 | PCM.DIMED ---
Discharge Instructions Date of Service Feb 25, 2016 Dates of Hospitalization Feb 22, 2016 at 17:03 Discharge Diagnosis Discharge Diagnosis # Suspected syncope, POA, acute -Syncope likely due to dehydration due to diarrhea and recent initiation of diuretic - pacemaker interrogation unremarkable # Left Humerus and right patella fracture due to ground level fall ,acute ,poa #Hypertension,chronic,stable # ARIELLE on CKD,improved # Recent diagnosis of CHF,stable Diet Low fat, Low Sodium, Heart Healthy Activity Other (physical therapy at SNF) Call your provider Fever or Chills, Shortness of breath, Bleeding, Chest pain, Vomitting, Excessive diarrhea, Weakness (unilateral) Patient Instructions You were hospitalized due to ground-level fall. Fall looks like from syncope due to dehydration. You have left shoulder and right knee fracture. Please continue physical therapy at group home facility . Orthopedics physician recommends"weight-bear as tolerated through her right lower extremity while wearing a knee immobilizer to keep her knee in 0 extension. The patient may otherwise range her knee from 0 - 60 flexion with assistance and initiate isometric quadriceps strengthening exercises. The patient's left shoulder fracture can be managed with a left shoulder sling with the patient coming out of her sling on a regular basis throughout the day for left shoulder pendulum exercises, elbow, wrist and hand range of motion exercises. She should refrain from any more strenuous left upper extremity activities including weightbearing for the next 6 weeks. Shoulder rehabilitation can be advanced 6 weeks post injury based on favorable shoulder x-rays." I have stopped her Lasix due to concern of dehydration and acute kidney injury. Follow-up plan Please follow-up with PCP 1 week after discharge from [facility]. Follow-up with PCP in: 1 week Follow-up in: 2 weeks (Please follow up with Orthopedics around your area in [place] after discharge from [facility].) Jonathan Klein MD Feb 25, 2016 11:09
[2016-02-25] MEDS ORDERED: OXYC1TAB24 PO (11:11)
[2016-02-25] MEDS ORDERED: ALPR0.5T8 PO (11:11)
--- NOTE | 2016-02-25 12:26 | NUR ---
Faxed orders to [facility] and placed copy in the chart. [facility] will be transporting around 1400.
--- NOTE | 2016-02-25 13:11 | PCM.DC.MED ---
Discharge Summary Date of Service Feb 25, 2016 Dates of Hospitalization Date of Hospital Admission Feb 22, 2016 at 17:03 Date of Discharge: Feb 25, 2016 Providers: Admitting Physician: Jonathan Rosenthal MD Primary Care Physician: Nopshanita Attending Physician: Jonathan Rosenthal MD Diagnosis at Time of Discharge Diagnosis at Time of Discharge # Suspected syncope, POA, acute -Syncope likely due to dehydration due to diarrhea and recent initiation of diuretic - pacemaker interrogation unremarkable # Left Humerus and right patella fracture due to ground level fall ,acute ,poa #Hypertension,chronic,stable # ARIELLE on CKD,improved # Recent diagnosis of CHF,stable Consultations Orthopedics Dr. Kelvin Weber Procedures XRay, CTs & MRIs PROCEDURE: X-RAY RIGHT KNEE, THREE VIEWS ([id number]) INDICATIONS: shoulder/knee pain post fall TECHNIQUE: 3 views of the knee were acquired. COMPARISON: None. FINDINGS: Bones: Comminuted fracture of the patella is noted. Soft tissues: Small suprapatellar joint effusion is noted. No suspicious soft tissue calcifications. IMPRESSION: Comminuted patellar fracture. Dictated by: Funmilayo Javed MD, PhD on 02/22/2016 at 15:10 PROCEDURE : X-RAY LEFT SHOULDER, MINIMUM TWO VIEWS ([id number]) shoulder XR INDICATIONS: shoulder/knee pain post fall TECHNIQUE: 3 views of the shoulder were acquired. COMPARISON: None. FINDINGS: Bones: Comminuted, mildly impacted left humeral head/neck fracture is present. Acromioclavicular joint is intact. No rib fracture seen. No pneumothorax. Soft tissues: No suspicious soft tissue calcifications. IMPRESSION: Left humeral head/neck fracture. Dictated by: Angelito Baum [facility] Interpreted: Funmilayo Javed MD on 02/22/2016 at 15:05 US KUB IMPRESSION: 1. Normal appearance to both kidneys, without hydronephrosis. 2. Patient was unable to void during the examination, raising the question of bladder outlet obstruction. Dictated by: Easton Márquez M.D. on 02/23/2016 at 14:21 ECG 12 Lead Paced rhythm with a rate of 68. Brief History as per HPI performed by mi on 02/22/16 85-year-old lady with past medical history of hypertension, CKD4, osteoporosis, pacemaker insertion 2014 was brought in by her daughters due to fall 1 or prior to presentation. Patient is from [place], came here to visit her daughter. She was in the mall with her daughter when she fell.daughter and family member were around the corner of [place] and did not see the patient fall.patient remembers falling down. No loss of consciousness. She denies feeling lightheaded or dizzy before falling.patient does not remember tripping over hitting anything.she was brought in for right knee and left shoulder pain. Did not hit head She has been eating and drinking as usual. She had 2 episodes of diarrhea this morning. She was recently started on diuretic for CHF. Lasix 20 mg by mouth daily Denies fever. Denies chest pain. Denies palpitation ED course: initial BP 176/63, heart rate 71, x-ray showed right patellar fracture and left humeral fracture Labs unremarkable except BNP 31, creatinine 1.87, hemoglobin 9.4 Hospital Course 85 year lady with past medical history of hypertension, CKD4, osteoporosis, pacemaker insertion 2014 was brought in by her daughters due to fall # Suspected syncope, POA, acute -fall most likely due to syncope given patient does not remember the entire circumstance of fall -Syncope likely due to dehydration given diarrhea this morning,dry tongue, recent initiation of diuretic - pacemaker interrogation unremarkable -Treated with NS 80ml/h -Discontinued Lasix # Left Humerus and right patella fracture -Pain control with Percocet when necessary -consulted orthopedics, recommended nonoperative management, "weight-bear as tolerated through her right lower extremity while wearing a knee immobilizer to keep her knee in 0 extension. The patient may otherwise range her knee from 0 - 60 flexion with assistance and initiate isometric quadriceps strengthening exercises. The patient's left shoulder fracture can be managed with a left shoulder sling with the patient coming out of her sling on a regular basis throughout the day for left shoulder pendulum exercises, elbow, wrist and hand range of motion exercises. She should refrain from any more strenuous left upper extremity activities including weightbearing for the next 6 weeks. Shoulder rehabilitation can be advanced 6 weeks post injury based on favorable shoulder x-rays. The patient may benefit from alf facility placement for physical and occupational therapy and assistance with mobilization and ADLs. Orthopedic surgical follow-up should be obtained after her return to her home in [place], [place] for x-ray and clinical follow-up." -Continue [facility] facility -dvt Prophylaxis lovenox. May need to continue Lovenox a alf facility if her PT participation is not optimal #Hypertension -Resumed home amlodipine and hydralazine # ARIELLE on CKD -Creatinine improved to 1.97 from 2.4. Unknown baseline. Patient is from [place] - KU US no hydro, -May need to check creatinine in 3-5 days #Anemia -Patient on iron outpatient. Unknown baseline -Hemoglobin ranged from 7.1-9.4 inpatient. No obvious source of bleeding or hematoma. Continue iron. May need to check CBC in 3-5 days # Recent diagnosis of CHF - Dehydrated clinically, stopped Lasix - Continue metoprolol -No sign of fluid overload both on exam and chest x-ray Discussed CODE STATUS, she is DNR/DNI Disposition: [facility] facility, [facility] Condition on discharge stable Exam Vital Signs (Last) Date Time Temp Pulse Resp B/P Pulse Ox O2 Delivery O2 Flow Rate FiO2 02/25/16 09:30 Supplement Oxygen 02/25/16 08:00 65 02/25/16 07:42 37.0 16 158/68 96 2.00 Exam Gen. patient is lying comfortably in hospital bed HEENT: Dry tongue and bucal mucosa.Head is normocephalic atraumatic, Pupils equal and reactive, extraocular movements intact, Lungs clear to auscultation bilaterally Heart regular rate and rhythm without murmurs gallops or rubs Abdomen soft nontender without hepatosplenomegaly Extremities :tenderness on left shoulder and right knee on passive movement Psych alert and oriented to person place and time Neuro cranial nerves II through XII are grossly intact Lymph: There is no lymphadenopathy appreciated in the cervical supra infraclavicular regions : no hernandez Test 02/23/16 03:20 02/23/16 07:18 02/25/16 06:30 Urine Color Straw (YELLOW) Urine Appearance Clear (CLEAR,HAZY) Urine pH 5.5 (5.0-8.0) Urine Specific [facility] 1.010 (1.003-1.035) Urine Protein Negativemg/dL (NEG,TRACE) Urine Glucose (UA) Negativemg/dL (NEGATIVE) Urine Ketones Negativemg/dL (NEGATIVE) Urine Occult Blood Negative (NEGATIVE) Urine Nitrite Negative (NEGATIVE) Urine Bilirubin Negative (NEGATIVE) Urine Urobilinogen Normalmg/dL (NORMAL) Urine Leukocyte Esterase Negative (NEGATIVE) Urine RBC 0-2/hpf (0-2) Urine WBC 0-5/hpf (0-5) Urine Epithelial Cells Occasional/hpf (NONE-MOD) Urine Crystals None seen (NONE SEEN) Urine Bacteria None/hpf (NONE-FEW) Urine Hyaline Casts None/lpf (NONE) Urine Granular Casts None seen (NONE SEEN) Urine Waxy Casts None seen (NONE SEEN) Urine Red Blood Cell Casts None seen (NONE SEEN) Urine White Blood Cell Casts None seen (NONE SEEN) Urine Mucus None seen (None Seen) Urine Trichomonas None seen (NONE SEEN) Urine Yeast None (NONE SEEN) Urinalysis Comment Starch Urine Culture Reflexed Not indicated Pro-B-Type Natriuretic Peptide 4324pg/mL (0-738) White Blood Count 10.2th/mm3 (3.8-10.1) Red Blood Count 2.47mil/mm3 (3.90-5.20) Hemoglobin 7.1g/dL (12.0-15.6) Hematocrit 23.4% (35.0-46.0) Mean Corpuscular Volume 94.7fL (81-100) Mean Corpuscular Hemoglobin 28.7pg (27.0-35.0) Mean Corpuscular Hemoglobin Concent 30.3% (32.0-37.0) Red Cell Distribution Width 14.8% (12.3-15.4) Platelet Count 249bil/L (150-400) Neutrophils (%) (Auto) 70.6% (40-74) Lymphocytes (%) (Auto) 11.4% (14-46) Monocytes (%) (Auto) 14.5% (4-12) Eosinophils (%) (Auto) 0.9% (0-5) Basophils (%) (Auto) 0.2% (0-3) Sodium Level 131mEq/L (134-144) Potassium Level 4.5mEq/L (3.5-5.2) Chloride Level 101mEq/L (97-108) Carbon Dioxide Level 19mmol/L (18-29) Blood Urea Nitrogen 33mg/dL (8-27) Creatinine 1.93mg/dL (0.57-1.00) Estimat Glomerular Filtration Rate 36mL/min (>59) Glucose Level 126mg/dL (60-99) Calcium Level 6.7mg/dL (8.5-10.1) Phosphorus Level 4.6mg/dL (2.5-4.9) Magnesium Level 1.8mg/dL (1.6-2.6) Total Bilirubin 0.4mg/dL (0.0-1.2) Aspartate Amino Transf (AST/SGOT) 27U/L (0-50) Alanine Aminotransferase (ALT/SGPT) 38U/L (0-32) Alkaline Phosphatase 79U/L (25-165) Total Protein 5.5g/dL (6.4-8.4) Albumin 3.0g/dL (3.4-5.0) Discharge Medications Discharge Medications Alendronate/Vitamin D3 (Alendronate/Vitamin D3) 1 Each Tablet 1 EACH PO WEEKLY ( Reported) Sundays Amlodipine (Amlodipine) 5 Mg Tablet 5 MG PO QAM (Reported) Aspirin (Aspirin) 325 Mg Tablet 325 MG PO QAM (Reported) Atorvastatin Calcium (Atorvastatin Calcium) 40 Mg Tablet 40 MG PO QAM (Reported ) Cyanocobalamin (Vitamin B-12) (Vitamin B-12) 1,000 Mcg Tab.subl 1,000 MCG SL QAM (Reported) Ferrous Sulfate (Ferrous Sulfate) 325 Mg Tablet 325 MG PO QAM (Reported) Hydralazine (Hydralazine) 25 Mg Tablet 25 MG PO TID (Reported) Metoprolol Tartrate (Metoprolol Tartrate) 75 Mg Tablet 75 MG PO BID (Reported) [place]-3/Dha/Epa/Fish Oil (Fish Oil 1,000 mg Softgel) 1 Each Capsule 1 EACH PO QAM (Reported) Ranitidine (Zantac) 150 Mg Tablet 150 MG PO BID (Reported) Sertraline HCl (Sertraline) 50 Mg Tablet 50 MG PO QAM (Reported) As needed Acetaminophen (Acetaminophen) 325 Mg Tablet 650 MG PO QID PRN PRN For Pain ( Reported) Alprazolam (Alprazolam) 0.5 Mg Tablet 0.5 MG PO TID PRN PRN For Anxiety or Agitation Prescribed by: JONATHAN ROSENTHAL MD Meclizine (Bonine) 25 Mg Tab.chew 12.5 MG PO TID PRN PRN vertigo (Reported) oxyCODONE-Acetaminophen 5-325 mg (oxyCODONE-Acetaminophen 5-325 mg) 1 Each Tablet 1 TAB PO Q4H PRN PRN For Pain Prescribed by: JONATHAN ROSENTHAL MD Followup Plan Disposition: [facility], [facility] Follow-up plan Please follow-up with PCP 1 week after discharge from alf [facility]. Discharge Diet: Low fat, Low Sodium, Heart Healthy Discharge Activity: Other (physical therapy at [facility]) Patient Instructions You were hospitalized due to ground-level fall. Fall looks like from syncope due to dehydration. You have left shoulder and right knee fracture. Please continue physical therapy at alf [facility] . Orthopedics physician recommends"weight-bear as tolerated through her right lower extremity while wearing a knee immobilizer to keep her knee in 0 extension. The patient may otherwise range her knee from 0 - 60 flexion with assistance and initiate isometric quadriceps strengthening exercises. The patient's left shoulder fracture can be managed with a left shoulder sling with the patient coming out of her sling on a regular basis throughout the day for left shoulder pendulum exercises, elbow, wrist and hand range of motion exercises. She should refrain from any more strenuous left upper extremity activities including weightbearing for the next 6 weeks. Shoulder rehabilitation can be advanced 6 weeks post injury based on favorable shoulder x-rays." I have stopped her Lasix due to concern of dehydration and acute kidney injury. Follow-up with PCP in: 1 week Follow-up in: 2 weeks (Please follow up with Orthopedics around your area in [place] after discharge from [facility].) Time spent 35 minutes coordinating discharge copies to: Armand Lloyd Melaku MD Feb 25, 2016 13:11
--- NOTE | 2016-02-25 15:26 | NUR ---
Discharge Pt. discharged via [facility] in w/c at 1415 in stable condition. Leg immobilized and straight. O2 at 2 L oxy mask. IV dc'd. Completed packet with transport. Family present to take belongings to [facility] rehab. Report called to Andria HOLLINS prior to transfer. No questions or concerns at this time.
== END 2016-02-25 14:20 | DRG 563 ==
LOC: SED 13:50 → EDBD 13:50 → OSC 17:03 → OBSVTOIN 17:03 → OSC 17:37
PROVIDERS: ADMIT Internal Medicine; ATTEND Internal Medicine
PROC: 4B02XSZ Measurement of Cardiac Pacemaker, External Approach (ICD-10-PCS; principal; 2016-02-23)
DX: S82.041A Displaced comminuted fracture of right patella, initial encounter for closed fracture (principal); N18.4 Chronic kidney disease, stage 4 (severe); S42.292A Other displaced fracture of upper end of left humerus, initial encounter for closed fracture; I50.9 Heart failure, unspecified; R55 Syncope and collapse; E86.0 Dehydration; Z66 Do not resuscitate; W19.XXXA Unspecified fall, initial encounter; Y92.59 Other trade areas as the place of occurrence of the external cause; Y93.9 Activity, unspecified; Y99.9 Unspecified external cause status; Z95.0 Presence of cardiac pacemaker; Z79.82 Long term (current) use of aspirin

== ENCOUNTER 2016-04-06 17:18 | Inpatient (IN) | payer MEDICARE ==
[~2016-04-06] VITALS: Ht 160 cm; Wt 95.9 kg
[~2016-04-06 17:18] MED LIST: ACET325T51 PO; ALEN70TA46 PO; ALPR0.5T8 PO; AMLO5TAB2 PO; ASPI325T32 PO; ATOR40TA69 PO; CYAN100017 SL; FERR-83 PO; HYDR-3939 PO; MECL-114 PO; METO75TA PO; OMEG-38 PO; OXYC1TAB24 PO; RANI150T11 PO; SERT50TA9 PO
[2016-04-06 17:26] VITALS: BP 155/60; PULSE 67; RESP 15; O2SAT 97
--- NOTE | 2016-04-06 18:21 | ED.REPORT ---
HPI-General Illness Date of Service Apr 06, 2016 ED Provider: Deonna Mehta MD Pt is an 85 y/o female w/ a hx of CHF, HTN, stage IV CKD, presenting to the ED w / family c/o increasing generalized edema over the past 2 weeks in the sense of 30 lbs since February 052015. Family states the edema began after being discharge with a diagnosis of pneumonia. She c/o associated increased SOB, nausea, decreased urination. Pt denies CP, cough, vomiting, dysuria, hematuria, fever, chills, rash, pain associated with the edema. Code status: DNR Nursing Notes Stated Complaint: EDEMA Chief Complaint: General Complaint Nursing Notes Reviewed: Yes Allergies: Coded Allergies: oxycodone (Verified Allergy, Unknown, took days to wake up, 04/06/16) Scheduled Alendronate/Vitamin D3 (Alendronate/Vitamin D3) 1 Each Tablet 1 EACH PO WEEKLY Sundays Amlodipine (Amlodipine) 5 Mg Tablet 5 MG PO QAM Aspirin (Aspirin) 325 Mg Tablet 325 MG PO QAM Atorvastatin Calcium (Atorvastatin Calcium) 40 Mg Tablet 40 MG PO QAM Cyanocobalamin (Vitamin B-12) (Vitamin B-12) 1,000 Mcg Tab.subl 1,000 MCG SL QAM Ferrous Sulfate (Ferrous Sulfate) 325 Mg Tablet 325 MG PO QAM Hydralazine (Hydralazine) 25 Mg Tablet 25 MG PO TID Metoprolol Tartrate (Metoprolol Tartrate) 75 Mg Tablet 75 MG PO BID [place]-3/Dha/Epa/Fish Oil (Fish Oil 1,000 mg Softgel) 1 Each Capsule 1 EACH PO QAM Ranitidine (Zantac) 150 Mg Tablet 150 MG PO BID Sertraline HCl (Sertraline) 50 Mg Tablet 50 MG PO QAM Scheduled PRN Acetaminophen (Acetaminophen) 325 Mg Tablet 650 MG PO QID PRN PRN For Pain Alprazolam (Alprazolam) 0.5 Mg Tablet 0.5 MG PO TID PRN PRN For Anxiety or Agitation Meclizine (Bonine) 25 Mg Tab.chew 12.5 MG PO TID PRN PRN vertigo oxyCODONE-Acetaminophen 5-325 mg (oxyCODONE-Acetaminophen 5-325 mg) 1 Each Tablet 1 TAB PO Q4H PRN PRN For Pain General Time Seen by MD: 18:18 Chief Complaint Other (Edema) Hx Obtained From: Patient, Daughter, EMS Arrived By: Ambulance Onset Occurred: More than a week ago... (2 months) Symptom Duration: Since onset Severity: Current: No pain currently Severity: Maximum: No pain Recent Healthcare: Previous diagnosis Similar Sx Previous: Yes Past Medical History Past Medical History HTN, CHF, CKD stage IV osteoporosis Past Surgical History Pacemaker Oct 2013 Smoking History Unknown if Ever Smoker Social History Other Social History: Good social support Ambulatory Status Independent Review of Systems Full Review of Systems Constitutional: Denies: Chills, Fever Respiratory: Reports: Shortness of breath, Denies: Non-productive cough Cardiovascular: Reports: Edema, Denies: Chest pain GI: Reports: Nausea, Denies: Vomiting Female: Reports: Urination decreased, Denies: Dysuria, Hematuria Musculoskeletal: Denies: Extremity pain Complete sys rev & neg: except as marked. Physical Exam Vital Signs Vital Signs Date Time Temp Pulse Resp B/P Pulse Ox O2 Delivery O2 Flow Rate FiO2 04/06/16 19:47 65 21 147/49 97 Nasal Cannula 2 04/06/16 17:26 36.6 67 15 155/60 97 Room Air Initial VS: Reviewed, Vital signs normal Head / Eyes: Atraumatic, Normocephalic, PERRL ENT: Mucous membranes moist, Conjunctiva normal, No scleral icterus Neck: Supple, Full range of motion Skin: Warm, Dry, No cyanosis Neurologic: Alert, Oriented, Nonfocal Psychiatric: Mood/affect normal, Behavior normal, Normal thought content General/Constitutional: Awake, Alert, No acute distress, Cooperative, Not toxic appearing Respiratory / Chest: Atraumatic, No respiratory distress, No retractions, No stridor, No chest tenderness, No chest wall deformity, No crepitus Bibasilar crackles Cardiovascular: Heart rate NL, Regular rhythm, Heart sounds NL, No gallop, No murmurs, No rubs, Cap refill not delayed, Peripheral circulation NL 1+ edema RUE. Picc in proximal RUE without signs of infection 2+ pitting edema LUE and bilateral lower extremities Interpretation & Diagnostics Lab Results Interpretation Result Diagram: 04/06/16 1815 04/06/16 1815 Test 04/06/16 16:18 04/06/16 18:15 Hold Green Top Tube Received (Received) White Blood Count 6.7th/mm3 (3.8-10.1) Red Blood Count 2.71mil/mm3 (3.90-5.20) Hemoglobin 7.3g/dL (12.0-15.6) Hematocrit 23.8% (35.0-46.0) Mean Corpuscular Volume 87.8fL (81-100) Mean Corpuscular Hemoglobin 26.9pg (27.0-35.0) Mean Corpuscular Hemoglobin Concent 30.7% (32.0-37.0) Red Cell Distribution Width 15.5% (12.3-15.4) Platelet Count 292bil/L (150-400) Neutrophils (%) (Auto) 63.7% (40-74) Lymphocytes (%) (Auto) 19.0% (14-46) Monocytes (%) (Auto) 15.4% (4-12) Eosinophils (%) (Auto) 1.3% (0-5) Basophils (%) (Auto) 0.3% (0-3) Prothrombin Time 11.2sec (8.1-12.5) Prothromb Time International Ratio 1.05ratio Activated Partial Thromboplast Time 26.8sec (22.8-33.0) Sodium Level 128mEq/L (134-144) Potassium Level 3.9mEq/L (3.5-5.2) Chloride Level 85mEq/L (97-108) Carbon Dioxide Level 31mmol/L (18-29) Blood Urea Nitrogen 33mg/dL (8-27) Creatinine 1.75mg/dL (0.57-1.00) Estimat Glomerular Filtration Rate 40mL/min (>59) Glucose Level 115mg/dL (60-99) Calcium Level 7.3mg/dL (8.5-10.1) Magnesium Level 2.1mg/dL (1.6-2.6) Total Bilirubin 0.4mg/dL (0.0-1.2) Aspartate Amino Transf (AST/SGOT) 17U/L (0-50) Alanine Aminotransferase (ALT/SGPT) 13U/L (0-32) Alkaline Phosphatase 81U/L (25-165) Troponin T < 0.010ug/L (0.0-0.011) Pro-B-Type Natriuretic Peptide 9705pg/mL (0-738) Total Protein 5.6g/dL (6.4-8.4) Albumin 3.2g/dL (3.4-5.0) ECG Interpretation ECG Interpretation: Ventricularly paced rhythm rate 60 T wave inversions in I and AvL Time: 18:53 Interpreted by: ED physician Normal ECG Interpretation: No acute ischemic changes, No change from prior ECGs X-Ray Chest Interpretation Chest Xray Interpretation: IMPRESSION: Dense retrocardiac consolidation suggesting pneumonia and/or aspiration/atelectasis. A small left pleural effusion cannot be excluded Diffuse ground glass opacities suspicious for early pulmonary edema. Please correlate clinically Dictated by: Broderick Morris M.D. on 04/06/2016 at 18:52 Approved by: Broderick Morris M.D. on 04/06/2016 at 18:53 View: Portable, 1 view Interpretation / Wet Read by: Interpret - Radiologist Re-Eval/Medical Decision Med Decision/Clinical Course 85-year-old female with extensive past medical history including chronic kidney disease, congestive heart failure, who is currently DNR/DNI here with 30 pound weight gain over the last 2 months, along with swelling of her extremities. Differential diagnosis includes but is not limited to CHF exacerbation versus fluid overload versus pleural effusion versus DVT. At this time, given the extremities are all swollen, I do not feel she has DVT. She does have evidence of fluid overload with elevated BNP and ground glass opacities on her chest x- ray. Her CBC is notable for anemia which is at baseline. Her CMP is notable for renal insufficiency, which is also baseline. I have given her Lasix in the emergency department, and admitted her to the hospital for aggressive diuresis. She and her family are aware and amenable to plan. Source of Hx: Old records, EMS, Family Time of Eval: 19:41 Re-Evaluation/Progress Note: Pt rechecked. Informed pt of need for admission for CHF exacerbation and Lasix treatment. Pt understands and agrees with plan for admission. All questions addressed. Consultation : Referral / Consult Name: Mk Tomlinson MD Consulted With: Hospitalist Call Returned at: 20:05 [place]: Will see patient, Agrees with eval, Agrees with plan, Accepts admit Counseled Regarding: Diagnosis, Lab results, Need for admission Discharge & Departure Primary Impression: CHF exacerbation Disposition: ADMITTED TO HOSPITAL Discharge Condition All VS Reviewed: Yes Condition: Stable Referrals: OTHER,PHYSICIAN (PCP) Scribarmida Attestation Portions of this note were transcribed by Ernesto Johnson. I, Dr. Mehta, personally performed the history, physical exam and medical decision-making; I reviewed and confirmed the accuracy of the information in the transcribed note. Signed by Tammi Horta, 04/06/16 - [id number] Deonna Mehta MD Apr 06, 2016 18:21 ERNESTO JOHNSON Apr 06, 2016 18:23
[2016-04-06 18:45] LABS: BASOPHILS % (AUTO) 0.3 % (0-3); EOSINOPHILS % (AUTO) 1.3 % (0-5); MONOCYTES % (AUTO) 15.4 % (4-12); Mean Corpuscular Hemoglobin 26.9 pg (27.0-35.0); Mean Corpuscular Volume 87.8 fL (81-100); NEUTROPHILS % (AUTO) 63.7 % (40-74); Platelet Count 292 bil/L (150-400)
--- NOTE | 2016-04-06 18:55 | DRSVH ---
PROCEDURE: X-RAY CHEST ONE VIEW, PORTABLE ([id number]) INDICATIONS: edema TECHNIQUE: One view of the chest was acquired. COMPARISON: [facility], CR, XR CHEST 1VW (PORTABLE), 02/22/2016, 19:26. FINDINGS: Surgical changes and devices: Right PICC line with the tip projecting in the lower SVC. Dual-lead car diac pacer as before Lungs and pleura: No pneumothorax. Retrocardiac consolidation and low lung volumes. Mild patchy righ t basilar opacities. Cannot exclude small left pleural effusion Mediastinum: Mediastinal contours appear normal. Heart size is normal. Bones and chest wall: No suspicious bony lesions. Overlying soft tissues appear unremarkable. IMPRESSION: Dense retrocardiac consolidation suggesting pneumonia and/or aspiration/atelectasis. A sm all left pleural effusion cannot be excluded Diffuse ground glass opacities suspicious for early pulmonary edema. Please correlate clinically Dictated by: Broderick Morris M.D. on 04/06/2016 at 18:52 Approved by: Broderick Morris M.D. on 04/06/2016 at 18:53
[2016-04-06 19:03] LABS: INR 1.05 ratio
[2016-04-06 19:18] LABS: Magnesium 2.1 mg/dL (1.6-2.6)
[2016-04-06 19:28] LABS: TROPONIN T < 0.010 ug/L (0.0-0.011)
[2016-04-06] MEDS ORDERED: Furosemide 10 mg/mL 4 mL Inj IVPUSH ONE (19:40)
[2016-04-06 19:47] VITALS: BP 147/49; PULSE 65; RESP 21; O2SAT 97
[2016-04-06] MEDS ORDERED: Ondansetron 2 mg/mL 2 mL Inj IVPUSH PRN ×2 (20:20→21:50)
[2016-04-06] MEDS ORDERED: Alum-Mag Hydrox-Simeth 30 mL Suspension PO PRN ×2 (20:20→21:50)
[2016-04-06 21:45] VITALS: BP 155/73; PULSE 60; RESP 19; O2SAT 93
[2016-04-06 21:46] VITALS: BP_SYST 142; BP_SYST 149; BP_SYST 155; BP_DIAS 73; BP_DIAS 76; BP_DIAS 82; PULSE 60
--- NOTE | 2016-04-06 21:46 | PCM.HPMED ---
Subjective Date of Service Apr 06, 2016 Primary Provider: Admitting Physician: Primary Care Physician: Other,Physician Attending Physician: Admit Status: From the Emergency Department Chief Complaint: Shortness of breath and generalized swelling. History of Present Illness: Pt is an 85 y/o F with hx of CHF (last echo was several years ago and not in [facility] system), HTN Metoprolol 50mg BID, and Amlodipine 5 mg daily, stage IV CKD base line creatinine 1.75, presented with complaint of worsening shortness of breath and generalized swelling over the past 2 weeks. Of note patient's family also states that she has gained approximately 30 pounds since February 05 when she last seen her primary care physician. Patient reports that she tends to sleep better propped up at night. Family reports that she had her last echo several years ago. Of note patient also has a healing left humeral neck fracture and right knee patellar Fracture that she sustained in a fall. Associated symptoms include nausea, decreased urination. Pt denies CP, cough, vomiting, dysuria, hematuria, fever, chills, constipation, diarrhea, sore throat , headache, fever. In the ED: Patient was given Lasix 40 mg IV. ECG showed ventricularly paced rhythm, rate 60, T wave inversions in I and AvL, no acute ischemic changes, no change from prior ECGs. CXR: IMPRESSION: Dense retrocardiac consolidation suggesting pneumonia and/or aspiration/atelectasis. A small left pleural effusion cannot be excluded. Diffuse ground glass opacities suspicious for early pulmonary edema. Vital signs: Temperature 36.6, pulse 65, blood pressure 147/49, respirations 21 , O2 97% on 2 L nasal cannula. Hemogram: WBCs 6.7, hemoglobin 7.3, hematocrit 23.8, MCV 87.8, platelets 292, monocytes 15.4H. Chemstrip panel: Serum sodium 128, potassium 3.9, chloride 85, CO2 31, BUN 33, creatinine 1.75, glucose 1:15, calcium 7.3, troponin 0.010, magnesium 2.1, proBNP 9705 PT/INR, 11.2/1.05 Review of Systems: A comprehensive review of systems was conducted and was negative except as mentioned in history of present illness. Allergies Coded Allergies: oxycodone (Verified Allergy, Unknown, took days to wake up, 04/06/16) Home Medications Alendronate/Vitamin D3 (Alendronate/Vitamin D3) 1 Each Tablet 1 EACH PO WEEKLY Sundays Amlodipine (Amlodipine) 5 Mg Tablet 5 MG PO QAM Aspirin (Aspirin) 325 Mg Tablet 325 MG PO QAM Atorvastatin Calcium (Atorvastatin Calcium) 40 Mg Tablet 40 MG PO QAM Cyanocobalamin (Vitamin B-12) (Vitamin B-12) 1,000 Mcg Tab.subl 1,000 MCG SL QAM Ferrous Sulfate (Ferrous Sulfate) 325 Mg Tablet 325 MG PO QAM Hydralazine (Hydralazine) 25 Mg Tablet 25 MG PO TID Metoprolol Tartrate (Metoprolol Tartrate) 75 Mg Tablet 75 MG PO BID [place]-3/Dha/Epa/Fish Oil (Fish Oil 1,000 mg Softgel) 1 Each Capsule 1 EACH PO QAM Ranitidine (Zantac) 150 Mg Tablet 150 MG PO BID Sertraline HCl (Sertraline) 50 Mg Tablet 50 MG PO QAM Scheduled PRN Acetaminophen (Acetaminophen) 325 Mg Tablet 650 MG PO QID PRN PRN For Pain Alprazolam (Alprazolam) 0.5 Mg Tablet 0.5 MG PO TID PRN PRN For Anxiety or Agitation Meclizine (Bonine) 25 Mg Tab.chew 12.5 MG PO TID PRN PRN vertigo oxyCODONE-Acetaminophen 5-325 mg (oxyCODONE-Acetaminophen 5-325 mg) 1 Each Tablet 1 TAB PO Q4H PRN PRN For Pain PMH HTN, CHF, CKD stage IV osteoporosis GERD Anxiety Hyperlipidemia Fractured left humeral neck Fractured right patella Surgical History Patient had pace maker placed October 2013 Social History Hx Alcohol Use: No Hx Substance Use: No Smoking Status: Unknown if Ever Smoker Living Arrangement: with Family Exam Vital Signs Vital Sign - Last Date Time Temp Pulse Resp B/P Pulse Ox O2 Delivery O2 Flow Rate FiO2 04/06/16 19:47 65 21 147/49 97 Nasal Cannula 2 04/06/16 17:26 36.6 Exam General: Patient is alert and oriented 3, speaking in 2-3 word sentences given shortness of breath, she appears short of breath, patient appears to have generalized swelling, HEENT: Normocephalic, atraumatic, eyes PERRLA, EOMI, neck thick, no JVD, no adenopathy, no masses, supple, throat, noninjected, dentures upper only Lungs: Lungs diffuse crackles bilaterally Heart: Regular rate and rhythm no murmurs heard Abdomen: Bowel sounds active, nontender, nondistended, no fluid wave, Genitourinary: No suprapubic tenderness, no CVA tenderness Extremities: Swelling of the left upper extremity considerably worse than the right. Left upper extremity with large fluid-filled [place] on the medial arm. Lower extremity with pitting 1+ edema to mid calf. Neurologic: Neurologically intact, cranial nerves II through XII intact, Skin: Skin appears edematous and taut, Lab and Diagnostics Result Diagram: 04/06/16181404/06/161814 X-Rays, CTs and MRIs Date of Service: 04/06/161819 PROCEDURE: X-RAY CHEST ONE VIEW, PORTABLE ([id number]) INDICATIONS: edema TECHNIQUE: One view of the chest was acquired. COMPARISON: [facility], CR, XR CHEST 1VW (PORTABLE), 02/22/2016, 19 :26. Surgical changes and devices: Right PICC line with the tip projecting in the lower SVC. Dual-lead cardiac pacer as before Lungs and pleura: No pneumothorax. Retrocardiac consolidation and low lung volumes. Mild patchy right basilar opacities. Cannot exclude small left pleural effusion Mediastinum: Mediastinal contours appear normal. Heart size is normal. Bones and chest wall: No suspicious bony lesions. Overlying soft tissues appear unremarkable. IMPRESSION: Dense retrocardiac consolidation suggesting pneumonia and/or aspiration/atelectasis. A small left pleural effusion cannot be excluded Diffuse ground glass opacities suspicious for early pulmonary edema. Please correlate clinically Dictated by: Broderick Morris M.D. on 04/06/2016 at 18:52 Approved by: Broderick Morris M.D. on 04/06/2016 at 18:53 Assessment & Plan This is an 85 y/o F with hx of CHF (last echo was several years ago and not in [facility] system), HTN, stage IV CKD base line creatinine 1.75, presented with complaint of worsening shortness of breath and generalized swelling over the past 2 weeks. Of note patient's family also states that she has gained approximately 30 pounds since February 05. Patient was given 40 mg of Lasix in the ED and was admitted for acute exacerbation of CHF. # Acute exacerbation of CHF, present on admission, active - CXR: Dense retrocardiac consolidation suggesting pneumonia and/or aspiration/ atelectasis. A small left pleural effusion cannot be excluded. Diffuse ground glass opacities suspicious for early pulmonary edema. Please correlate clinically. - Given dose of Lasix in the ED - No evidence for pneumonia clinically - Vital signs: Temperature 36.6, pulse 65, blood pressure 147/49, respirations 21, O2 97% on 2 L nasal cannula. - Hemogram: WBCs 6.7, hemoglobin 7.3, hematocrit 23.8, MCV 87.8, platelets 292, monocytes 15.4H. - Chemstrip panel: Serum sodium 128, potassium 3.9, chloride 85, CO2 31, BUN 33 , creatinine 1.75, glucose 1:15, calcium 7.3, troponin 0.010, magnesium 2.1, proBNP 9705 - PT/INR, 11.2/1.05 - Transthoracic echo ordered and pending - IV Lasix 60 daily through patient's PICC line. - Strict ins and outs - Strict daily weights at bedside. 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 Likely partially dilutional in origin. - We will type and cross 2 units packed RBCs. - FE panel to assess microcytic or normocytic etiologies - Continue to monitor hemoglobin and hematocrit. - Transfusion goal: If hemoglobin less than 7, will transfuse 2 units PRBC's # Hypochloremic Hyponatremia, present on admission, active - Sodium 128, chloride 85 - Likely dilutional given patient's CHF exacerbation. - We will continue Lasix as above. - Continue to monitor with serial chemistries # Healing left humeral neck fracture, present on admission. - No significant change in appearance or alignment of left radial head/neck fracture. - Physical therapy consult ordered # Healing right patellar fracture, present on admission - X-ray from 04/04/2016 showed IMPRESSION: No significant change in patellar fracture. Chronic problems # HTN, - We will hold patient's amlodipine 5 mg daily - We will continue metoprolol tartrate 50 mg twice a day # CHF, - As stated above # CKD stage IV - Current creatinine 1.75, with baseline creatinine of 1.75 - We will continue IV Lasix as stated above # Osteoporosis - Tylenol for pain # GERD - Patient recently had her ranitidine stopped. # Anxiety - We will continue sertraline 50 mg daily # Hyperlipidemia - We will continue atorvastatin 40 mg daily Disposition: Admitted to in patient service with expected length of stay greater than 2 days, secondary to severity of presenting symptoms, treatment plan, complexity of clinical work up, and risk of adverse events. CODE STATUS: DNR/DNI PCP: Cee Lopez, , [place] primary care DVT PE prophylaxis: Heparin subcutaneous DPOA: Daughter Vicky [phone], daughter Yuridia [phone] Attending Statement The patient was seen and examined together with Dr. Reed on 04/06 and I agree with the history, exam and plan as outlined in the note above. Austin Reed DO Apr 06, 2016 20:40 Mk Tomlinson MD Apr 07, 2016 01:45
[2016-04-06] MEDS ORDERED: Senna-Docusate 8.6-50 mg Tablet PO PRN (21:50)
[2016-04-06] MEDS ORDERED: Polyethylene Glycol (PEG) 17 Gm Powder PO PRN (21:50)
[2016-04-06 23:05] LABS: Unsaturated Iron Binding 235.9 ug/dL
[2016-04-06 23:37] VITALS: PULSE 64
[2016-04-07] VITALS (7 sets, daily range): BP systolic 124–160; BP diastolic 59–88; PULSE 61–81; RESP 17–21; O2SAT 94–96
[2016-04-07] MEDS: Sodium Chloride LOK Flush 10 mL Syringe IVFLUSH SCH ×3 (00:44→15:24)
--- NOTE | 2016-04-07 03:32 | NUR ---
Admit to 1009 Arrived from ED alert and fully oriented, family present. Left arm is swollen and painful related to fracture acquired prior to this admission, elevated on pillows, Tylenol available. Generalized edema, 2L O2, unable to lie flat, lung sounds compromised, see EMR for details. Heart healthy diet with 1.5 L fluid restriction; BG checks ACHS. PICC line already in place, flushes and draws with ease. Able to transfer to [facility] with one assist, FWW. Oriented to hospital routines, plan of care, fall precautions engaged, hourly rounding ongoing.
--- NOTE | 2016-04-07 03:53 | NUR ---
Discharge request Pt requests assistance from social security assessor for plan to allow return to [place], where she lives, on discharge.
[2016-04-07 06:48] LABS: BASOPHILS % (AUTO) 0.4 % (0-3); EOSINOPHILS % (AUTO) 1.6 % (0-5); MONOCYTES % (AUTO) 13.1 % (4-12); Mean Corpuscular Hemoglobin 26.6 pg (27.0-35.0); Mean Corpuscular Volume 87.9 fL (81-100); NEUTROPHILS % (AUTO) 59.5 % (40-74); Platelet Count 308 bil/L (150-400)
[2016-04-07 08:22] LABS: Phosphorus 3.7 mg/dL (2.5-4.9)
[2016-04-07 08:28] LABS: APPEARANCE,URINE HAZY (CLEAR,HAZY); COLOR,URINE STRAW (YELLOW)
[2016-04-07 08:29] LABS: OCCULT BLOOD,URINE NEGATIVE (NEGATIVE); UROBILINOGEN,URINE NORMAL (NORMAL); YEAST,URINE FEW (NONE SEEN)
[2016-04-07] MEDS ORDERED: Furosemide 10 mg/mL 10 mL Inj IVPUSH SCH (08:30)
[2016-04-07] MEDS: Omega-3 Fatty Acids 1,000 mg Capsule PO SCH (09:00)
[2016-04-07] MEDS ORDERED: POLY17PO6 PO (15:04)
[2016-04-07] MEDS ORDERED: FURO40TA4 PO (15:04)
[2016-04-07] MEDS ORDERED: ALEN70TA2 PO (15:04)
[2016-04-07] MEDS ORDERED: POTA20TA16 PO (15:04)
[2016-04-07] MEDS ORDERED: CHOL10008 PO (15:04)
[2016-04-07] MEDS ORDERED: ALPR0.5T8 PO (15:04)
[2016-04-07] MEDS ORDERED: TORS10TA5 PO (15:04)
[2016-04-07] MEDS ORDERED: SODI126M NS (15:05)
[2016-04-07] MEDS ORDERED: TRAM-14 PO (15:05)
[2016-04-07] MEDS ORDERED: MELA1TAB11 PO (15:05)
[2016-04-07] MEDS ORDERED: ONDA-53 PO (15:05)
[2016-04-07] MEDS ORDERED: MAGN400O4 PO (15:05)
--- NOTE | 2016-04-07 15:05 | PCM.PNMED ---
Subjective Date of Service Apr 07, 2016 Subjective Follow-up for hypoxemia, shortness of breath, heart failure Patient seen and examined at bedside. She she remains on 2 L of oxygen via nasal cannula for adequate saturation Chest pain, no fever, no chills, no abdominal pain, nausea, vomiting. Exam Vital Signs Vital Sign - Last Date Time Temp Pulse Resp B/P Pulse Ox O2 Delivery O2 Flow Rate FiO2 04/07/16 11:07 61 04/07/16 08:58 18 144/84 94 Nasal Cannula 2.50 04/07/16 05:25 36.6 Intake and Output 04/06/16 04/06/16 04/07/16 Cumulative From/Thru 15:00 23:00 07:00 04/06/16 17:26 - 04/07/16 05:22 Intake Total 0 ml 0 ml Output Total 250 ml 450 ml 700 ml Balance -250 ml -450 ml -700 ml Intake Oral 0 ml 0 ml Output Urine Total 250 ml 450 ml 700 ml # Bowel Movements 0 0 Exam Obese female in bed comfortably. No acute distress Neck: Supple no JVD no carotid bruit Chest: Normal respiratory effort, no chest tenderness Lung: Adequate air entry bilaterally, basilar crackle bilaterally. No wheezing Heart: S1-S2 regular rate and rhythm, Abdomen: Obese nontender nondistended Extremity: 2+ edema bilaterally, no cyanosis Neuro: Grossly nonfocal IVs and Medications Medications Reviewed: Medications were reviewed in detail Lab and Diagnostics Result Diagram: 04/07/16 0600 04/07/16 0600 X-Rays, CTs and MRIs Date of Service: 04/06/16 1820 PROCEDURE: X-RAY CHEST ONE VIEW, PORTABLE ([id number]) INDICATIONS: edema TECHNIQUE: One view of the chest was acquired. COMPARISON: [facility], CR, XR CHEST 1VW (PORTABLE), 02/22/2016, 19 :26. Surgical changes and devices: Right PICC line with the tip projecting in the lower SVC. Dual-lead cardiac pacer as before Lungs and pleura: No pneumothorax. Retrocardiac consolidation and low lung volumes. Mild patchy right basilar opacities. Cannot exclude small left pleural effusion Mediastinum: Mediastinal contours appear normal. Heart size is normal. Bones and chest wall: No suspicious bony lesions. Overlying soft tissues appear unremarkable. IMPRESSION: Dense retrocardiac consolidation suggesting pneumonia and/or aspiration/atelectasis. A small left pleural effusion cannot be excluded Diffuse ground glass opacities suspicious for early pulmonary edema. Please correlate clinically Dictated by: Broderick Morris M.D. on 04/06/2016 at 18:52 Approved by: Broderick Morris M.D. on 04/06/2016 at 18:53 Assessment & Plan This is an 85 y/o F with hx of CHF (last echo was several years ago and not in [facility] system), HTN, stage IV CKD base line creatinine 1.75, presented with complaint of worsening shortness of breath and generalized swelling over the past 2 weeks. Of note patient's family also states that she has gained approximately 30 pounds since February 05. Patient was given 40 mg of Lasix in the ED and was admitted for acute exacerbation of CHF. # Acute exacerbation of CHF, present on admission, active - CXR: Dense retrocardiac consolidation suggesting pneumonia and/or aspiration/ atelectasis. A small left pleural effusion cannot be excluded. Diffuse ground glass opacities suspicious for early pulmonary edema. Please correlate clinically. 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 Hemoglobin 7.7 todayRBCs. - FE panel to assess microcytic or normocytic etiologies - Monitor H&H # Hypochloremic Hyponatremia, present on admission, active - Improving Sodium 131de 85 -Acute on chronic renal failure : Tamayo in Lasix from 60-40 mg orally daily. BMP in morning # Healing left humeral neck fracture, present on admission. - No significant change in appearance or alignment of left radial head/neck fracture. - Physical therapy consult and recommendation pending # Healing right patellar fracture, present on admission - X-ray from 04/04/2016 showed IMPRESSION: No significant change in patellar fracture. Chronic problems # HTN, - We will hold patient's amlodipine 5 mg daily - We will continue metoprolol tartrate 50 mg twice a day # CHF, - As stated above # CKD stage IV - Current creatinine 1.75, with baseline creatinine of 1.75 - We will continue IV Lasix as stated above # Osteoporosis - Tylenol for pain # GERD - Patient recently had her ranitidine stopped. # Anxiety - We will continue sertraline 50 mg daily # Hyperlipidemia - We will continue atorvastatin 40 mg daily Patient is somewhat better clinically today. Plan of care is as above and discussing her daughter at bedside. Repeat chest x-ray tomorrow Preferably patient wants to go home to her again and continue rehabilitation there if able to sit for the [address] CODE STATUS: DNR/DNI PCP: Cee Lopez, , [place] primary care DVT PE prophylaxis: Heparin subcutaneous DPOA: Daughter Vicky [phone], daughter Yuridia [phone] VTE Mechanical Devices: Intermittant Pneumatic CD Time spent 35 minutes Armand Rodriguez MD Apr 07, 2016 15:05
--- NOTE | 2016-04-07 15:37 | NUR ---
Social Work- Initial Assessment: Data: See Initial Assessment. Pt is a 85 yr old female admitted 04/06/16 for CHF Exacerbation per H&P. Pt's insurance is [email or web address] and PCP is Cee Cohen DO of [place], [place]. EMR reviewed. NINO met with pt and pt's daughter, Jennifer [phone] at bedside to discuss discharge planning, SW role explained. Prior to admission, pt was at [facility] receiving rehab. Pt uses no DME at baseline, currently using [employer]. Pt does not drive. Pt has received HH services from [facility] in [place] in the past. 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 DPOA/AD on file. DPOA is daughter Jennifer. Pt lives in [place] and has a strong desire to return home after this admission. SW explained that we are awaiting PT recommendations for placement and that would influence future options. Pt and daughter are agreeable to returning to [place] should pt be unable to return to [place], though that is not their first choice. SW left message for [facility] admissions [phone]. Daughter states she would be able to coordinate services (SNF, HH, outpt PT) in [place] based on PT and MD recommendations pending clinical course. SW awaiting PT recommendations. Anticipate pt to either return to [place] or return to [place] with HH, with daughter to transport. Assessment: Pt who would benefit home with HH vs. SNF Plan: Anticipate discharge back to [facility] vs. home to [place] with family and HH services. PT evaluation will be beneficial in decision making. SW will continue to follow. ELIEZER Jones Addendum: 04/07/16 at 1601 by CJ REYNAGA SS Amended: Links added.
[2016-04-07] MEDS ORDERED: Sodium Chloride LOK Flush 10 mL Syringe IVFLUSH PRN ×2 (16:15)
--- NOTE | 2016-04-07 16:29 | NUR ---
Respiratory status Pt is having SOB with exertion. Oxygen sats remain stable, even with activity, on 3L via nasal cannula. Lung sounds are diminished in the bases with crackles heard upon assessment. IV lasix given this AM.
--- NOTE | 2016-04-07 17:24 | DRSVH ---
Merged With [facility] [address] [place] [address] Echocardiogram Report Name: JALEN QUEZADA Study Date: 04/07/2016 Height: 63 in Hospital Exam Location: [facility] Weight: 212 lb Gender: Female BSA: 2.0 m2 : 1930 Age: 85 yrs BP: 130/74 mmHg Reason For Study: ACUTE EXACERBATION OF CHF Ordering Physician: [facility]formed By[facility] Interpretation Summary Left ventricular wall thickness is at the upper limits of normal. The left ventricle is hyperdynamic. The ejection fraction is estimated to be 70-75%. Flattened septum is consistent with RV pressure/volume overload. The right ventricle is moderately dilated. Right ventricular systolic function is at the lower limits of normal. The right ventricular wall motion is normal. The right ventricular systolic pressure is estimated at 82 mmHg assuming a right atrial pressure of 15 mm Hg. The left atrium is moderately dilated. The right atrium is mildly dilated. There is mild to moderate mitral regurgitation. There is no hemodynamically significant valvular aortic stenosis. There is moderate to severe tricuspid regurgitation. There is no other significant valvular heart disease. The aortic root is normal size. Moderate pleural effusion. Procedure: A two-dimensional transthoracic echocardiogram with color flow and Doppler was performed. Image quality is fair. There is no prior echocardiogram noted for this patient. The patient has a paced rhythm. Left Ventricle: The left ventricle is normal in size. Left ventricular wall thickness is at the upper limits of normal. The left ventricle is hyperdynamic. The ejection fraction is estimated to be 70-75%. Flattened septum is consistent with RV pressure/volume overload. There are no focal wall motion abnormalities. Diastolic function could not be accurately assessed due to paced rhythm. Right Ventricle: The right ventricle is moderately dilated. Right ventricular systolic function is at the lower limits of normal. The right ventricular wall motion is normal. Atria: The left atrium is moderately dilated. The right atrium is mildly dilated. There is no Doppler evidence for an atrial septal defect. Mitral Valve: There is mild mitral annular calcification. The mitral valve leaflets appear mildly thickened, but open well. There is mild to moderate mitral regurgitation. Aortic Valve: The aortic valve is not well visualized. The aortic valve is mildly calcified. The calculated aortic valve area is 1.7 cm2. The peak aortic velocity is 2.1 m/sec. The aortic valve mean gradient is 8 mmHg. There is no hemodynamically significant valvular aortic stenosis. There is trace aortic regurgitation. Tricuspid Valve: The tricuspid valve is not well visualized, but is grossly normal. There is moderate to severe tricuspid regurgitation. The right ventricular systolic pressure is estimated at 82 mmHg assuming a right atrial pressure of 15 mm Hg. There is severe pulmonary hypertension. Pulmonic Valve: The pulmonic valve is not well visualized. There is no pulmonic valvular regurgitation. There is no other significant valvular heart disease. Great Vessels: The aortic root is normal size. The ascending aorta could not be visualized. The pulmonary is not well visualized. The IVC is dilated (diameter is greater than 2.1 cm) and it collapses less than 50% with a sniff. This suggests a high right atrial pressure of 15 mm Hg. Pericardium/ Pleura There is no pericardial effusion. Moderate pleural effusion. MMode/2D Measurements & Calculations LVIDd: 4.0 cm RA long axis LVOT diam LVIDs: 2.7 cm LA A2 area: 24.2 cm FS: 31.0 % LA A4 area: 29.1 cm RA area Ao root diam EPSS: 0.30 cm LA length (vol): 6.7 cm : 3.3 cm IVSd: 1.1 cm LA vol: 89.0 ml : 22.4 cm LVPWd: 1.0 cm LA vol index RA vol: 73.4 ml RA : 37.0 mm/ IVC diam: 2.4 cm RVDd major : 8.1 cm LV molina. diameter/BSA LV sys. diameter/BSA (cm/m^2): 2.0 (cm/m^2): 1.4 Doppler Measurements & Calculations Ao V2 max MV E max jaiden Med Peak E' Jaiden TR max jaiden : 205.4 cm/sec : 130.5 cm/sec : 408.9 cm/sec Ao max PG MV P1/2t: 69.3 msec E/E' med: 19.4 TR max PG : 16.9 mmHg : 66.9 mmHg Ao mean PG PA V2 max : 97.3 cm/sec LVOT Max Jaiden PA mean PG : 117.4 cm/sec JONATHON(I,D): 1.7 cm PA Accel Time sev ratio : 0.10 sec MV dec time MV P1/2t max jaiden Ao V2 mean LV V1 max PG : 0.22 sec : 131.5 cm/sec Ao V2 VTI: 42.8 cmLV V1 VTI MVA(P1/2t): 3.2 cm2 : 28.8 cm JONATHON(V,D): 1.4 cm2 PA V2 mean JONATHON indexed to BSA : 59.8 cm/sec (cm^2/m^2): 0.85 Reading Physician:PM
--- NOTE | 2016-04-07 21:02 | DRSVH ---
PROCEDURE: X-RAY CHEST, TWO VIEWS ([id number]) INDICATIONS: SHORTNESS OF BREATH TECHNIQUE: 2 views of the chest were acquired. COMPARISON: [facility], CR, XR CHEST 1VW (PORTABLE), 04/06/2016, 18:22. FINDINGS: Surgical changes and devices: Left chest wall dual-lead pacemaker is stable in position. Right upper extremity PICC line also appears unchanged in position. Lungs and pleura: There are persistent small bilateral pleural effusions. Bibasilar crackles opaciti es are redemonstrated consistent of consolidation or atelectasis. There is persistent mild pulmonary edema. Mediastinum: Mediastinal contours are unchanged. Heart size is enlarged. Bones and chest wall: No suspicious bony abnormalities. Soft tissues appear unremarkable. IMPRESSION: 1. Persistent pulmonary edema, small pleural effusions, and bibasilar atelectasis or consolidation. Dictated by: Dewayne Lewis M.D. on 04/07/2016 at 20:59 Approved by: Dewayne Lewis M.D. on 04/07/2016 at 21:00
[2016-04-08] VITALS (12 sets, daily range): BP systolic 127–191; BP diastolic 64–80; PULSE 60–82; RESP 16–23; O2SAT 94–99
[2016-04-08] MEDS: Sodium Chloride LOK Flush 10 mL Syringe IVFLUSH SCH ×3 (01:27→16:30)
--- NOTE | 2016-04-08 02:11 | NUR ---
Respiratory PT remains dyspneic with only minimal exertion. Her lungs are diminished. Pt remains on 2l NC. Addendum: 04/08/16 at 0212 by TAD ADAMS RN Amended: Links added.
[2016-04-08 05:21] LABS: Mean Corpuscular Hemoglobin 26.7 pg (27.0-35.0); Mean Corpuscular Volume 88.5 fL (81-100)
[2016-04-08] MEDS ORDERED: Furosemide 10 mg/mL 10 mL Inj IVPUSH SCH (08:30)
[2016-04-08] MEDS: Omega-3 Fatty Acids 1,000 mg Capsule PO SCH (08:56)
--- NOTE | 2016-04-08 09:05 | NUR ---
JACOB signed. ELIEZER Velasquez
[2016-04-08] MEDS ORDERED: Furosemide 10 mg/mL 2 mL Inj IV ONE ×2 (13:05)
--- NOTE | 2016-04-08 13:26 | PCM.PNMED ---
Subjective Date of Service Apr 08, 2016 Subjective Patient seen and examined at bedside. Echocardiogram done yesterday showed severe pulmonary artery hypertension. PH of 82. Patient has been compliant. Her hemoglobin is up to today with a hematocrit of 23. . No chest pain or shortness of breath, no melena. No hematuria Exam Vital Signs Vital Sign - Last Date Time Temp Pulse Resp B/P Pulse Ox O2 Delivery O2 Flow Rate FiO2 04/08/16 10:09 63 04/08/16 08:26 36.5 16 138/73 96 Nasal Cannula 2.00 Intake and Output 04/07/16 04/07/16 04/08/16 Cumulative From/Thru 15:00 23:00 07:00 04/06/16 17:26 - 04/08/16 04:59 Intake Total 500 ml 700 ml 1200 ml Output Total 400 ml 550 ml 1650 ml Balance 100 ml 150 ml -450 ml Intake Oral 500 ml 700 ml 1200 ml Output Urine Total 400 ml 550 ml 1650 ml # Bowel Movements 0 0 Exam Ge. : Obese female, in chair comfortably. Oxygen via nasal canula, able to speak in full sentences. Neck: Supple no JVD no carotid bruit Chest: Normal respiratory effort, no chest tenderness, no use of accessory muscles Lung: Scattered crackle bilaterally. No wheezing Heart: S1-S2 regular rate and rhythm, no gallop Abdomen: Obese non tender non distended. Bowel sounds normal quadrant Extremity: 2+ edema bilaterally, no cyanosis, tenderness Neuro: Grossly non focal. AAO x 3 IVs and Medications Medications Reviewed: Medications were reviewed in detail Lab and Diagnostics Result Diagram: 04/08/16 0500 04/08/16 0500 X-Rays, CTs and MRIs Date of Service: 04/06/16 182 PROCEDURE: X-RAY CHEST ONE VIEW, PORTABLE ([id number]) INDICATIONS: edema TECHNIQUE: One view of the chest was acquired. COMPARISON: [facility], CR, XR CHEST 1VW (PORTABLE), 02/22/2016, 19 :26. Surgical changes and devices: Right PICC line with the tip projecting in the lower SVC. Dual-lead cardiac pacer as before Lungs and pleura: No pneumothorax. Retrocardiac consolidation and low lung volumes. Mild patchy right basilar opacities. Cannot exclude small left pleural effusion Mediastinum: Mediastinal contours appear normal. Heart size is normal. Bones and chest wall: No suspicious bony lesions. Overlying soft tissues appear unremarkable. IMPRESSION: Dense retrocardiac consolidation suggesting pneumonia and/or aspiration/atelectasis. A small left pleural effusion cannot be excluded Diffuse ground glass opacities suspicious for early pulmonary edema. Please correlate clinically Dictated by: Broderick Morris M.D. on 04/06/2016 at 18:52 Approved by: Broderick Morris M.D. on 04/06/2016 at 18:53 Assessment & Plan This is an 85 y/o F with hx of CHF (last echo was several years ago and not in [facility] system), HTN, stage IV CKD base line creatinine 1.75, presented with complaint of worsening shortness of breath and generalized swelling over the past 2 weeks. Of note patient's family also states that she has gained approximately 30 pounds since February 05. Patient was given 40 mg of Lasix in the ED and was admitted for acute exacerbation of CHF. # Acute exacerbation of the stomach CHF, present on admission, active - CXR: Dense retrocardiac consolidation suggesting pneumonia and/or aspiration/ atelectasis. A small left pleural effusion cannot be excluded. Diffuse ground glass opacities suspicious for early pulmonary edema. Please correlate clinically. Repeat checks x-rays show persistent pulmonary edema. Continue diuretics. Echocardiogram for normal EF . There is severe pulmonary artery hypertension with pulmonary pressure of 82 and restricted right ventricle. This is quite suspicious for pulmonary embolism. Patient is in acute respiratory failure requiring oxygen for adequate saturation since discharge in January 2014. CT angiogram is possible due to renal failure. VQ scan is requested. D-dimer elevated at 1.6. Start empiric Lovenox renal dose adjusted for pulmonary embolism. # Acute on Chronic normocytic anemia secondary chronic kidney disease, present on admission, active - No need for transfusion . Hemoglobin 7.2 todayRBCs. Transfuse 2 units of PRBC. Lasix 20 mg IV after each unit # Hypochloremic Hyponatremia, present on admission; improved -Acute on chronic renal failure : Monitor renal function and electrolytes closely # Healing left humeral neck fracture, present on admission. - No significant change in appearance or alignment of left radial head/neck fracture. - Physical therapy consult and recommendation pending # Healing right patellar fracture, present on admission - X-ray from 04/04/2016 showed IMPRESSION: No significant change in patellar fracture. Chronic problems # HTN, - We will hold patient's amlodipine 5 mg daily - We will continue metoprolol tartrate 50 mg twice a day # CHF, - As stated above # CKD stage IV - Current creatinine 1.75, with baseline creatinine of 1.75 # Osteoporosis - Tylenol for pain # GERD - Patient recently had her ranitidine stopped. # Anxiety - We will continue sertraline 50 mg daily # Hyperlipidemia - On atorvastatin 40 mg daily This is a very sick and complicated patient with multiple echogenic medical problem ranging from newly diagnoses severe pulmonary arterial hypertension with a pulmonary pressure of 82. There is a high suspicion for pulmonary embolism given patient was sent to mobilization, patellar fracture and humeral fracture. Unfortunately CT scan with PE protocol is not an option given renal failure with a creatinine of 1.75. She starting on Lovenox when old as adjusted for pulmonary embolism pending a VQ scan. Patient is severely anemic with a hematocrit of 23. Chest CT negative PRBC given in our anticoagulation and potential risk of bleed . Plan of care is as above and discuss with patient and her family at bedside. All questions and concerns were addressed. Prognosis is guarded. Patient is DO NOT RESUSCITATE CODE STATUS: DNR/DNI PCP: Cee Lopez, , [place] primary care DVT PE prophylaxis: Heparin subcutaneous DPOA: Daughter Vicky [phone], daughter Yuridia [phone] VTE Mechanical Devices: Intermittant Pneumatic CD Time spent 35 minutes Armand Rodriguez MD Apr 08, 2016 13:26
--- NOTE | 2016-04-08 14:42 | NUR ---
pt is off unit for testing Addendum: 04/08/16 at 1442 by MARTHA PADILLA CNA Amended: Links added.
--- NOTE | 2016-04-08 16:42 | DRSVH ---
PROCEDURE: NM LUNG VQ RADIOPHARMACEUTICAL: 27.1 mCi Tc-99m DTPA aerosol by inhalation and 5.8 mCi Tc-99m MAA intravenousl y. INDICATIONS: Shortness of breath. TECHNIQUE: Ventilation images were obtained first with Tc-99m DTPA aerosol. Subsequently, perfusion images were acquired after intravenous injection of Tc-99m MAA. Anterior, posterior, ZAVALA, [place], RPO, LPO, left and right lateral views were obtained. COMPARISON: Chest 04/07/2016. FINDINGS: Horizontal linear matched defect in the right midlung field corresponds to an area of atele ctasis along the minor fissure on chest x-ray. Segmental matched perfusion and ventilation defect at the left lung base posteriorly is consistent with an area of consolidation on the chest x-ray. This m ay represent pneumonia or atelectasis. A focal area of matched photopenia on the [place] view correlates with the battery pack for the transvenous pacemaker. No mismatched perfusion defects are identified. IMPRESSION: 1. Abnormal ventilation/perfusion lung scan but with low probability of pulmonary embolic disease. Dictated by: Demarco Ibarra M.D. on 04/08/2016 at 16:36 Approved by: Demarco Ibarra M.D. on 04/08/2016 at 16:41
--- NOTE | 2016-04-08 17:31 | NUR ---
spiritual care: pt request brief visit; pt sleeping. 2 dtrs in room reflected on pt's fatigue and coping. dtrs suggested pt would appreciate scripture reading (alma) and prayer. SPiriutal care to follow.
--- NOTE | 2016-04-08 19:18 | NUR ---
Shortness of Breath Patient had one report of shortness of breath this shift. Patient stated that she occasionally has some anxiety which results in the shortness of breath she was feeling. Patient placed on 2L of O2 via nasal cannula, which she said helped alleviate the feeling. Care is ongoing.
[2016-04-08] MEDS ORDERED: 0.9% Sodium Chloride 250 ML ONE (21:17)
[2016-04-09] VITALS (15 sets, daily range): BP systolic 153–206; BP diastolic 51–91; PULSE 62–81; RESP 18–22; O2SAT 85–97
[2016-04-09] MEDS ORDERED: 0.9% Sodium Chloride 250 ML ONE (00:01)
[2016-04-09] MEDS ORDERED: Furosemide 10 mg/mL 2 mL Inj IV ONE ×2 (00:05→03:15)
[2016-04-09] MEDS: Sodium Chloride LOK Flush 10 mL Syringe IVFLUSH SCH ×3 (00:30→16:29)
[2016-04-09 05:33] LABS: Mean Corpuscular Hemoglobin 27.9 pg (27.0-35.0); Mean Corpuscular Volume 87.9 fL (81-100)
--- NOTE | 2016-04-09 05:42 | NUR ---
blood admin pt received 2 units of PRBC. VSS were stable and she remained afebrile throughout admin. pt was given IV lasix after each unit. however she still only had 250cc of urine this shift. MD notified of low urine output. weight was unchanged from yesterday. pt remains edematous but no signs of respiratory distress. she remains on 2L of 02 and is mildly SOB with exertion. care continues.
[2016-04-09] MEDS ORDERED: Furosemide 10 mg/mL 4 mL Inj IVPUSH SCH ×2 (08:30→20:30)
[2016-04-09] MEDS: Omega-3 Fatty Acids 1,000 mg Capsule PO SCH (08:32)
--- NOTE | 2016-04-09 10:49 | PCM.CONPAL ---
Date of Service Apr 09, 2016 Date of Hospital Admission: Apr 06, 2016 at 21:17 Date of Palliative Consult: Apr 09, 2016 Requesting Provider: Jonathan Klein MD Reason Palliative Care Consult: Goals of Care Discussion Hospital Unit @time of consult: Orthopedic/Surgical Care (room 1009) Palliative Care Recommendation Summary of palliative recommendations: -Symptom management (Pain/other) -DPOA/Advanced Directives/POLST: 1. Code in EMR: DNR/DNI 2. DPOA: pt's daughters, #1 DPOA is Gila Negrete who lives [address] in [place] and Alternate DPOA is Jennifer Cobos Tel. [phone] who lives in [place]. Daughters ask providers to get decisions from [place] d[place] when Mom in [place], and [place] d[place] when Mom in [place]. They work in concert. Mom visits back and forth between two dtrs. 3. [place] POLST in paper chart signed by pt's PCP in 2006. This POLST is valid in [place] but their form doesn't require a pt/DPOA signature, but ours does. 4. NEW [place] POLST signed by dtr Gila (at patient's request), which states: DNR/DNI/limited interventions to try to reverse infection or CHF exascerbations , consider antibx but don't use if patient is dying. No artificial feeding tubes. Family Conference Team Meeting (FCTM): with Dr. Estrada, dtr Gila and pt at bedside. We discussed the old [place] POLST and the differences between what it was stating ("comfort care") vs. the decision dtrs made to bring pt into hospital for treatment. Gila agreed that she does want limited interventions: treatment of CHF/COPD exacerbations with IV meds and possible antibiotics for easily reversible infections, but she generally wants such treatments to be minimally invasive and directed towards making her mom more comfortable physically. The [place] POLST was thus changed to reflect true goals of daugther and patient for planned return to hospital for acute flare-ups of CHF,COPD and infections that might need IV antibiotics for a short time. -Family/emotional support: both daughters listed above are very involved in helping their mother get desired level of care. GOALS ARE CLEAR, NEW POLST COMPLETED TODAY. PALLIATIVE CARE TEAM WILL SIGN OFF. THANK YOU FOR CONSULT. Problems: Goals of Care DNR/DNI Disposition Pt's PCP is Cee Cohen DO of [facility], [place], [place]. 04/07 SW met with pt and pt's daughter, Jennifer [phone] at bedside to discuss discharge planning. Prior to admission, pt was at [facility] receiving rehab. Pt uses no DME at baseline, currently using [facility]ww. Pt does not drive. Pt has received HH services from [facility] in [place] in the past. DPOA/AD on file. DPOA is daughter Jennifer. Pt lives in [place] and has a strong desire to return home after this admission. SW explained that we are awaiting PT recommendations for placement and that would influence future options. Pt and daughter are agreeable to returning to [facility] should pt be unable to return to [place], though that is not their first choice. SW left message for [facility] admissions [phone]. Daughter states she would be able to coordinate services (SNF, HH, outpt PT) in [place] based on PT and MD recommendations pending clinical course. SW awaiting PT recommendations. Anticipate pt to either return to [facility] or return to [place] with HH, with daughter to transport. Assessment: Pt who would benefit home with HH vs. SNF Resuscitation Status Resuscitation Status: DNR/DNI:Do Not Resuscitate/Intubate POLST Updates/Changes Previous POLST?: Yes POLST Last Review Date: Apr 09, 2016 Antibiotics: Determine Use or Limitations Artificially Admin Nutrition: No Artifical Nutrition by Tube POLST Discussed with: Patient, Health Care Agent (DPOAHC) POLST Review Outcome: New Form Completed . Advanced Care Planning Address: POLST (new [place] POLST completed today and signed by marlene Uriostegui), Code status change (changed from "comfort care" to "limited interventions" with DNR/DNI staying the same), Durable Power of Modeling Agent ( located copy in chart and made copy for PC office) Pt History History of Present Illness Pt is an 85 y/o F with hx of CHF (last echo was several years ago and not in [facility] system), HTN Metoprolol 50mg BID, and Amlodipine 5 mg daily, stage IV CKD base line creatinine 1.75, presented with complaint of worsening shortness of breath and generalized swelling over the past 2 weeks. Of note patient's family also states that she has gained approximately 30 pounds since February 05 when she last seen her primary care physician. Patient reports that she tends to sleep better propped up at night. Family reports that she had her last echo several years ago. Patient also has a healing left humeral neck fracture and right knee patellar fracture that she sustained in a fall on Jan. In the ED: Patient was given Lasix 40 mg IV. ECG showed ventricularly paced rhythm, rate 60, T wave inversions in I and AvL, no acute ischemic changes, no change from prior ECGs. CXR showed a dense retrocardiac consolidation suggesting pneumonia and/or aspiration/atelectasis. A small left pleural effusion cannot be excluded. Diffuse ground glass opacities suspicious for early pulmonary edema. She was admitted for acute exacerbation of CHF night of 04/06. Hospital Course: Today is Hospital Day 4. Her echocardiogram showed a normal EF with severe pulmonary artery hypertension with pulmonary pressure of 82 and restricted right ventricle. Work-up for PE included a 04/07 [place] lung VQ scan which was abnormal but with low probability PE. D-dimer elevated at 1.6. Start empiric Lovenox renal dose adjusted for pulmonary embolism. Due to findings of acute on chronic normocytic anemia secondary chronic kidney disease, she was transfused 2 units PRBC. Both her fractures were evaluated as healing in alignment; plan for PT assessment and recommendations for this admission is pending. Past Medical History Significant PMH Noted: Hypertension CKD, Stage IV Osteoporosis CHF GERD Anxiety Hyperlipidemia GERD Surgical History Pacemaker insertion, Oct 2013 Cholecystectomy Hysterectomy Left tibial jazmyn Fractured left humeral neck Fractured right patella Family History Reviewed and noncontributory Social History Hx Alcohol Use: No Hx Substance Use: No Smoking Status: Unknown if Ever Smoker Living Arrangement: with family Allergy Allergies Reviewed: Yes Medications Current Medications: Current Medications Alendronate Sodium 70 mg WEEKLY PO; Start 04/13/16 at 08:30; Stop 04/13/16 at 08 :30; Status DC Levothyroxine Sodium 25 mcg DAILYAC PO Last administered on 04/09/16 08:32; Admin Dose 25 MCG; Start 04/08/16 at 07:30 Furosemide 40 mg DAILY IVPUSH Last administered on 04/08/16 09:02; Admin Dose 40 MG; Start 2/14/17 at 08:30; Stop 04/08/16 at 17:24; Status DC Enoxaparin Sodium 100 mg HS SUBQ Last administered on 04/08/16 21:18; Admin Dose 100 MG; Start 04/07/16 at 21:00 Furosemide 40 mg DAILY IVPUSH; Start 04/09/16 at 08:30 Hydralazine HCl 50 mg TID PO Last administered on 04/09/16 08:33; Admin Dose 50 MG; Start 04/09/16 at 08:30 Scheduled Alendronate Sodium (Fosamax) 70 Mg Tablet 70 MG PO every thursday Amlodipine (Amlodipine) 5 Mg Tablet 5 MG PO QAM Atorvastatin Calcium (Atorvastatin Calcium) 40 Mg Tablet 40 MG PO QAM Cholecalciferol (Vitamin D3) (Vitamin D3) 1,000 Unit Tab.chew 2,000 UNIT PO DAILY Cyanocobalamin (Vitamin B-12) (Vitamin B-12) 1,000 Mcg Tab.subl 1,000 MCG SL QAM Ferrous Sulfate (Ferrous Sulfate) 325 Mg Tablet 325 MG PO QAM Furosemide (Furosemide) 40 Mg Tablet 40 MG PO BID Hydralazine (Hydralazine) 25 Mg Tablet 25 MG PO TID Metoprolol Tartrate (Metoprolol Tartrate) 75 Mg Tablet 75 MG PO BID [place]-3/Dha/Epa/Fish Oil (Fish Oil 1,000 mg Softgel) 1 Each Capsule 1 EACH PO QAM Polyethylene Glycol 3350 (Miralax) 17 Gm Powd.pack 17 GM PO DAILY Potassium Chloride (Potassium Chloride) 20 Meq Tab.er.prt 20 MEQ PO BID TAKE WITH FOOD Sertraline HCl (Sertraline) 50 Mg Tablet 50 MG PO QAM Torsemide (Torsemide) 10 Mg Tablet 10 MG PO DAILY Scheduled PRN Acetaminophen (Acetaminophen) 325 Mg Tablet 650 MG PO QID PRN PRN For Pain Alprazolam (Alprazolam) 0.5 Mg Tablet 0.25 MG PO q8 hours PRN PRN For Anxiety Magnesium Hydroxide (Milk of Magnesia) 400 Mg/5 Ml Oral.susp 30 ML PO DAILY PRN PRN constip Meclizine (Bonine) 25 Mg Tab.chew 12.5 MG PO TID PRN PRN vertigo Melatonin/Pyridoxine (Melatonin 3 mg Tablet) 1 Each Tablet 1 EACH PO HS PRN PRN For Sleep Ondansetron (Ondansetron) 4 Mg Tablet 4 MG PO q6 hours PRN PRN For Nausea Sodium Chloride (Saline Nasal Mist) 126 Ml Mist 2 SPRAY NS DAILY PRN PRN prn Tramadol (Ultram) 50 Mg Tablet 25 MG PO q6 hours PRN PRN Pain Objective Findings Exam Vital Sign - Last Date Time Temp Pulse Resp B/P Pulse Ox O2 Delivery O2 Flow Rate FiO2 04/09/16 08:06 36.4 70 20 166/82 97 Nasal Cannula 2.50 Intake and Output 04/08/16 04/08/16 04/09/16 Cumulative From/Thru 15:00 23:00 07:00 04/06/16 17:26 - 04/09/16 04:55 Intake Total 820 ml 845 ml 2865 ml Output Total 600 ml 250 ml 2500 ml Balance 220 ml 595 ml 365 ml Intake Oral 820 ml 100 ml 2120 ml IV Total 145 ml 145 ml Packed Cells 600 ml 600 ml Output Urine Total 600 ml 250 ml 2500 ml # Bowel Movements 5 2 7 Objective Wt. 95.2 Kg (209.4 lbs) Gen : Oxygen 2.5 LPM via nasal canula, able to speak in full sentences. Neck: Supple no JVD no carotid bruit Chest: Normal respiratory effort, no chest tenderness, no use of accessory muscles Lung: Scattered crackle bilaterally. No wheezing Heart: S1-S2 regular rate and rhythm, no gallop Abdomen: Obese, non tender non distended. Bowel sounds normal quadrant Extremity: 2+ edema bilaterally, no cyanosis, tenderness Neuro: Grossly non focal. AAO x 3 General: Alert, Oriented, Person, Place, No acute distress HEENT: Atraumatic, PERRLA, EOMI, Scleral Anicteric Abdomen: Benign (obese) Neuro: Exam Intact Extremities: Warm, Edema (2+) Lab/Diagnostics Lab and Imaging results reviewed in detail in EMR. Time spent Total time 70 minutes; >50% face to face with patient and/or family, providing counselling regarding plans and recommendations, and in care coordination with his/her medical teams. I also spent an additional 35 minutes counseling for advanced care planning with the patient/the patients family/the surrogate decision maker. Deirdre Estrada MD Apr 09, 2016 10:48
[2016-04-09] MEDS: Furosemide 10 mg/mL 4 mL Inj IVPUSH SCH ×2 (11:33→20:17)
--- NOTE | 2016-04-09 12:23 | NUR ---
Palliative Care Palliative Care received verbal order from Dr Klein 04/09/16 to assist with goals of care. Patient is an 85 year old man with hx of CHF, HTN and stage IV CKD. He presented with complaint of worsening shortness of breath and generalized swelling over the past few weeks. Patient was admitted 04/06/16 for care of acute CHF exacerbation. Patient is a resident at [facility]. Jennifer Cobos (daughter/DPOA) [phone] Gila Negrete (daughter) [phone] Palliative Care to follow. Alize Godinez Addendum: 04/09/16 at [address] Estrada just got done meeting with patient/family. New POLST/DPANTONIO paperwork completed today. DPOA#1 Gila Negrete (daugther) [phone] DPOA#2 Jennifer Cobos (daughter) [phone] Alize Godinez
--- NOTE | 2016-04-09 14:37 | NUR ---
SOB P:Patient c/o SOB I:taught deep breathing and use of IS E: Patient using IS when awake O2 sat 95 on one liter of oxygen
--- NOTE | 2016-04-09 15:09 | NUR ---
Social Work-continued d/c planning: Data:EMR Reviewed. Pt is on day 3 of hospitalization for CHF exacerbation per H&P. Pt is not medically stable at this time for discharge, anticipate several more days. MD to order palliative and pulmonary to see pt. PT to see pt today and make recommendation. PT requesting assistance from NINO with getting weightbearing status from anne Rehman appointment. NINO asked [facility] to assist with getting these records. NINO followed up with pt and daughter Yuridia at bedside, NINO role explained. Yuridia had questions about insurance and wondered if she had straight medication. Insurance verification states that pt has the managed plan through [place]. Daughter Yuridia states she is hopeful that pt will be able to go to [place] for SNF placement. Daughter Yuridia states they have friend that has w/c van that will be able to drive pt back to [place]. Unclear if pt can tolerate trip, MD and PT to make recommendations. Rianna Shi would like NINO to explore [facility] [phone] F: [phone] and other SNF's in outside of [facility]. NINO called and spoke with with Andria at [facility]. Andria states they are contracted with pt's insurance. NINO faxed referral down for review. NINO asked UR specialist to look at alternative SNF's in the area. NINO left message for admissions at [facility]. NINO explained to pt and daughter that if pt cannot tolerate transport, pt would need to return to [facility]. Paperwork placed in the chart. SW will continue to follow. Assessment:Pt who would benefit from SNF. Plan:Pt to either discharge back to [facility] vs SNF in [place], [facility] has been faxed. Pt will need to be able to tolerate 5+ hours of transport. Insurance authorization will need to be obtained. Paperwork placed in the chart. SW will continue to follow. ELIEZER Velasquez
--- NOTE | 2016-04-09 15:40 | PCM.PNMED ---
Subjective Date of Service Apr 09, 2016 Subjective Follow-up will shortness of breath, severe pulmonary arterial hypertension, anemia. Patient seen and examined at bedside. Chest refused treatment of PRBC overnight and tolerated very well. She denied chest pain. She continued to be on oxygen 2 L nasal cannula for adequate saturation. No fever, no chill, abdominal pain, no nausea, no vomiting Exam Vital Signs Vital Sign - Last Date Time Temp Pulse Resp B/P Pulse Ox O2 Delivery O2 Flow Rate FiO2 04/09/16 15:15 Supplement Oxygen 04/09/16 15:00 36.7 78 22 175/85 95 2.00 Intake and Output 04/08/16 04/08/16 04/09/16 Cumulative From/Thru 15:00 23:00 07:00 04/06/16 17:26 - 04/09/16 04:55 Intake Total 820 ml 845 ml 2865 ml Output Total 600 ml 250 ml 2500 ml Balance 220 ml 595 ml 365 ml Intake Oral 820 ml 100 ml 2120 ml IV Total 145 ml 145 ml Packed Cells 600 ml 600 ml Output Urine Total 600 ml 250 ml 2500 ml # Bowel Movements 5 2 7 Exam General: Morbidly obese female. In bed comfortably. No acute distress. HEENT: On oxygen nasal canula. Sclera is anicteric Mouth: Fran oral mucosa, no oral thrush Neck: Supple no JVD, Chest lung normal respiratory effort Lung: Clear bilaterally, no car call, no wheezing Heart: S1-S2 irregular, no gallop, no murmur Abdomen: Obese, non tender, no palpable mass. Extremity: 3+ edema bilaterally Psychiatric: anxious Neuro : Grossly non focal IVs and Medications Medications Reviewed: Medications were reviewed in detail Lab and Diagnostics Result Diagram: 04/09/16 0500 04/09/16 0500 X-Rays, CTs and MRIs Date of Service: 04/06/16 1820 PROCEDURE: X-RAY CHEST ONE VIEW, PORTABLE ([id number]) INDICATIONS: edema TECHNIQUE: One view of the chest was acquired. COMPARISON: [facility], CR, XR CHEST 1VW (PORTABLE), 02/22/2016, 19 :26. Surgical changes and devices: Right PICC line with the tip projecting in the lower SVC. Dual-lead cardiac pacer as before Lungs and pleura: No pneumothorax. Retrocardiac consolidation and low lung volumes. Mild patchy right basilar opacities. Cannot exclude small left pleural effusion Mediastinum: Mediastinal contours appear normal. Heart size is normal. Bones and chest wall: No suspicious bony lesions. Overlying soft tissues appear unremarkable. IMPRESSION: Dense retrocardiac consolidation suggesting pneumonia and/or aspiration/atelectasis. A small left pleural effusion cannot be excluded Diffuse ground glass opacities suspicious for early pulmonary edema. Please correlate clinically Dictated by: Broderick Morris M.D. on 04/06/2016 at 18:52 Approved by: Broderick Morris M.D. on 04/06/2016 at 18:53 Assessment & Plan This is an 85 y/o F with hx of CHF (last echo was several years ago and not in [facility] system), HTN, stage IV CKD base line creatinine 1.75, presented with complaint of worsening shortness of breath and generalized swelling over the past 2 weeks. Of note patient's family also states that she has gained approximately 30 pounds since February 05. Patient was given 40 mg of Lasix in the ED and was admitted for acute exacerbation of CHF. # Acute exacerbation diastolic heart failure - Change diuretics to 30 mg IV twice a day -Continue strict I's and O, daily weight, fluid restriction to 2 L daily # Acute on Chronic normocytic anemia secondary chronic kidney disease, present on admission, active - Patient receive a unit of PRBC overnight which he tolerated very well. She is feeling better and less short of breath today -Acute on chronic renal failure : Monitor renal function and electrolytes closely while on diuretics. Creatinine trending down. Nephrology consulted. # Healing left humeral neck fracture, present on admission. - Physical therapy consult and recommendation noted. Continue PT while hospitalized. Out of bed encouraged Pulmonary artery hypertension : Severe with pressure of 82 seen on echocardiogram which raises suspicion for possible pulmonary embolism. Patient initially put on therapeutic, no dose adjusted enoxaparin. VQ scan resulted low probability for pulmonary embolism. CT undergone the possible even renal failure. I reviewed junk Lovenox at this time to DVT prophylaxis dose. I wanted to consult pulmonary for further guidance regarding her severe pulmonary artery hypertension with pulmonary is unavailable today. # HTN : Uncontrolled -On amlodipine to 10 mg. Metoprolol 50 mg twice a day Hydralazine 50 mg orally 3 times a day. Continue to monitor and adjust hypertensive for blood pressure control This is a basic patient with a myriad of medical issues as above. Plan of care as outlined above. Palliative care consult appreciated. Patient is DNR/DNI Discharge planning and anticipated short-term rehabilitation today here or to her home town in [place] Pain Evaluation: Adequate Pain Control VTE Mechanical Devices: Intermittant Pneumatic CD Resuscitation Status: DNR/DNI:Do Not Resuscitate/Intubate Time spent 35 minutes Armand Rodriguez MD Apr 09, 2016 15:40
[2016-04-09] MEDS: hydrALAZINE 20 mg/mL Inj IV PRN (16:22)
--- NOTE | 2016-04-09 16:23 | NUR ---
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
--- NOTE | 2016-04-09 16:52 | NUR ---
HTN Denies headache. Scheduled and prn IV hydralazine given as ordered. Continue to monitor.
--- NOTE | 2016-04-09 17:26 | NUR ---
Chest discomfort This afternoon, pt with vague complaints of feeling "weird", and "warm on the outside and cold on the inside." ~17:05 complained of chest "tightness" and feeling like "it's on fire." Denies pain, complains of SOB. States she feels she will be "dizzy" if she "gets up." Skin pink, warm and dry. Still hypertensive. State EKG ordered and done, nitro given. MD aware; ordered chest Xray and states he will assess pt. At this time, she states chest is feeling "better." Continue to monitor closely.
--- NOTE | 2016-04-09 18:02 | DRSVH ---
PROCEDURE: X-RAY CHEST ONE VIEW, PORTABLE ([id number]) INDICATIONS: Shortness of breath TECHNIQUE: One view of the chest was acquired. COMPARISON: [facility], CR, XR CHEST 2VW, 04/07/2016, 18:45. [facility], CR, XR CHEST 1VW (PORTABLE), 04/06/2016, 18:22. FINDINGS: Surgical changes and devices: There is a cardiac pacemaker which is seen in expected position. A righ t PICC is seen with the tip in the area of SVC. Lungs and pleura: Bilateral airspace infiltrates. Left basilar consolidation. Small bilateral effusi ons. No pneumothorax. Mediastinum: Mediastinal contours appear normal. Heart size is normal. Bones and chest wall: There is a nondisplaced left humeral neck fracture. Overlying soft tissues ranjeet ear unremarkable. IMPRESSION: 1. Bilateral airspace infiltrates and small pleural effusions, compatible with pulmonary edema or lloyd ateral pneumonia. 2. Left basilar consolidation. 3. Left humeral neck fracture. Dictated by: Renetta Barreto M.D. on 04/09/2016 at 17:58 Approved by: Renetta Barreto M.D. on 04/09/2016 at 18:00
[2016-04-09] MEDS: ALPRAZolam 0.25 mg Tablet PO PRN (20:11)
[2016-04-10] VITALS (12 sets, daily range): BP systolic 153–173; BP diastolic 63–78; PULSE 62–88; RESP 16–22; O2SAT 88–98
[2016-04-10] MEDS: Sodium Chloride LOK Flush 10 mL Syringe IVFLUSH SCH ×3 (00:38→16:30)
--- NOTE | 2016-04-10 06:40 | NUR ---
activity at start of shift pt stated she was exhausted and just wanted to be left to sleep. nurse worked with TAILINGS MAN to group care together to limit the amount of times pt sleep had to be interrupted. pt denied any chest pain but did complain of anxiety. she was given Tylenol because she believes it calms her down and a PO ativan at HS. Pts daughter says pt appeared to have distressful dreams all night and cried in her sleep often. pt daughter requested that next time she just be given the tylenol and not the ativan. however the pt woke up this morning cheerful and talking about having pleasant dreams about her . BP was elevated but lower then it had been on dayshift. she did not require IV hydralazine. care continues.
[2016-04-10] MEDS ORDERED: Calcium Chl 10% (Gm) Inj 1 GM in Dextrose 5% 100 ML IV ONE (07:25)
[2016-04-10] MEDS ORDERED: Potassium Chloride Inj 30 MEQ in Dextrose 5% 100 ML IV ONE (08:25)
[2016-04-10] MEDS: Furosemide 10 mg/mL 4 mL Inj IVPUSH SCH ×2 (08:29→20:44)
[2016-04-10] MEDS: Omega-3 Fatty Acids 1,000 mg Capsule PO SCH (08:29)
[2016-04-10] MEDS: Albuterol-Ipratropium 3 mL Inhalation Solution NEB SCH ×4 (08:30→20:59)
--- NOTE | 2016-04-10 08:46 | NUR ---
received TC from Em, at [facility] in [place], [place] they are able to accept pt at DC. Advised Em pt could be dc'd tomorrow or over the weekend. Em is agreeable, we will need to call her, fax orders ect. Family to transport pt to facility. Advised ELIEZER.
--- NOTE | 2016-04-10 15:04 | NUR ---
spiritual care: pt request Visited with pt who is struggling with frustration regarding her health. Pt communicates that she does not understand why "God doesn't take me." She said she is physically miserable and hopeful that she can go to [facility] soon and be with Jonatan and her who three years ago. Had a good conversation about joaquín, family and . Prayed with her before leaving the room. Spiritual care will continue to follow as needed.
--- NOTE | 2016-04-10 17:15 | DRSVH ---
PROCEDURE: CT CHEST WITHOUT CONTRAST ([id number]) INDICATIONS: hempotitis. SOB TECHNIQUE: Noncontrast 5 mm thick sections acquired from the pulmonary apices to the posterior costophrenic angl es. 7 mm thick coronal and sagittal MIP reformats were then acquired. For radiation dose reduction, the following was used: automated exposure control, adjustment of mA and/or kV according to patient size. COMPARISON: [facility], CR, XR SHOULDER MIN 2VW LT, 04/04/2016, 13:52. [facility], [place], NM LUNG VQ, 04/08/2016, 14:43. FINDINGS: Image quality: Motion is present throughout the examination, limiting evaluation. Lungs and pleura: Bilateral patchy and confluent areas of opacity are present within the lungs bilate rally slightly more prominent on the left. Mild to moderate bilateral pleural effusions are present w ith superimposed consolidations. Mediastinum: Heart size is mildly prominent. No pericardial effusion. No mediastinal adenopathy by size criteria. Thoracic aorta and central pulmonary arteries are normal in size. Esophagus is asif l in caliber. No hiatal hernia. Bones and chest wall: No suspicious bony lesions. No vertebral body compression fractures. No axil jemal or supraclavicular adenopathy by size criteria. Thyroid gland is unremarkable. Left humeral he ad fracture, unchanged. Abdomen: Visualized upper abdominal solid organs and bowel loops appear normal in the absence of con trast. IMPRESSION: 1. Bilateral patchy confluent areas of opacity are present within the lungs, as well as bilateral ple ural effusions. Findings are most suggestive of infection or inflammation, such as pneumonia. In floyd tion, there could be an inclusion of underlying ARDS or edema. Dictated by: Shanna Rose M.D. on 04/10/2016 at 17:10 Approved by: Shanna Rose M.D. on 04/10/2016 at 17:13
[2016-04-10] MEDS ORDERED: Piperacillin-Tazo 3.375 Gm Inj 3.375 GM in Dextrose 5% Minibag Plus 50 ML IV SCH (17:20)
--- NOTE | 2016-04-10 17:37 | PCM.PNMED ---
Subjective Date of Service Apr 10, 2016 Subjective Follow-up for acute respiratory failure, severe pulmonary artery hypertension:, Acute renal failure. Patient seen and examined at bedside. She has some hemoptysis ( white sputum production with streak of blood) this morning after episodes of cough. No chest pain. No abdominal pain, no nausea no vomiting. No fever, no chills Exam Vital Signs Vital Sign - Last Date Time Temp Pulse Resp B/P Pulse Ox O2 Delivery O2 Flow Rate FiO2 04/10/16 16:46 78 16 168/72 04/10/16 16:37 90 Nasal Cannula 3.50 04/10/16 13:42 36.7 Intake and Output 04/09/16 04/09/16 04/10/16 Cumulative From/Thru 15:00 23:00 07:00 04/06/16 17:26 - 04/10/16 05:17 Intake Total 400 ml 350 ml 3615 ml Output Total 500 ml 850 ml 3850 ml Balance -100 ml -500 ml -235 ml Intake Oral 400 ml 350 ml 2870 ml IV Total 145 ml Packed Cells 600 ml Output Urine Total 500 ml 850 ml 3850 ml # Bowel Movements 2 0 9 Exam Gen : Ill appearing female . Very Anxious. IN no acute distress . Neck: Supple, no JVD no , trachea is midline Chest: Normal respiratory effort, no chest tenderness Lung: Bilateral crackle and wheezing. Heart: S1-S2 regular rate and rhythm, Abdomen: Soft, non tender. No palpable mass Extremity: 2+ edema bilaterally, no cyanosis, tenderness Neuro: Grossly non focal. Very anxious IVs and Medications Medications Reviewed: Medications were reviewed in detail Lab and Diagnostics Result Diagram: 04/09/16 0500 04/10/16 0455 X-Rays, CTs and MRIs Date of Service: 04/06/16 182 PROCEDURE: X-RAY CHEST ONE VIEW, PORTABLE ([id number]) INDICATIONS: edema TECHNIQUE: One view of the chest was acquired. COMPARISON: [facility], CR, XR CHEST 1VW (PORTABLE), 02/22/2016, 19 :26. Surgical changes and devices: Right PICC line with the tip projecting in the lower SVC. Dual-lead cardiac pacer as before Lungs and pleura: No pneumothorax. Retrocardiac consolidation and low lung volumes. Mild patchy right basilar opacities. Cannot exclude small left pleural effusion Mediastinum: Mediastinal contours appear normal. Heart size is normal. Bones and chest wall: No suspicious bony lesions. Overlying soft tissues appear unremarkable. IMPRESSION: Dense retrocardiac consolidation suggesting pneumonia and/or aspiration/atelectasis. A small left pleural effusion cannot be excluded Diffuse ground glass opacities suspicious for early pulmonary edema. Please correlate clinically Dictated by: Broderick Morris M.D. on 04/06/2016 at 18:52 Approved by: Broderick Morris M.D. on 04/06/2016 at 18:53 Ct scan of chest reviewed : Bilateral patchy confluent areas of opacity are present within the lungs, as well as bilateral pleural effusions. Findings are most suggestive of infection or inflammation, such as pneumonia. In addition, there could be an inclusion of underlying ARDS or edema. Assessment & Plan This is an 85 y/o F with hx of CHF (last echo was several years ago and not in [facility] system), HTN, stage IV CKD base line creatinine 1.75, presented with complaint of worsening shortness of breath and generalized swelling over the past 2 weeks. Of note patient's family also states that she has gained approximately 30 pounds since February 05. Patient was given 40 mg of Lasix in the ED and was admitted for acute exacerbation of CHF. # Acute exacerbation diastolic heart failure - Increase Lasix to 40 mg PO twice daily -Continue strict I's and O, daily weight, fluid restriction to 2 L daily. 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 -Acute on chronic renal failure : Improving slowly Monitor renal function and electrolytes closely while on diuretics. # Healing left humeral neck fracture, present on admission. - Physical therapy consult and recommendation noted. Continue PT while hospitalized. Out of bed encouraged. Will returned to inpatient rehab on discharge . # Pulmonary artery hypertension : Severe with pressure of [address] scan . Lovenox changed to Therapeutic dose ; I wanted to consult pulmonary for further guidance regarding her severe pulmonary artery hypertension with pulmonary is unavailable today. # Acute on chronic respiratory failure /ARDS / HCAP : CT scan finding compatible to possible pneumonia . Will start Zosyn and Azithromycin . Some hemoptysis today after an episode of cough. This is likely due to pneumonia and current pulmonary processes. Lovenox discontinued DuoNeb nebulizer . Incentive spirometry. # HTN : Uncontrolled -On amlodipine to 10 mg. Metoprolol 50 mg twice a day Hydralazine 50 mg orally 3 times a day. Continue to monitor and adjust hypertensive for blood pressure control This is a very sick patient with a myriad of medical issues as described above. Plan of care as outlined above. Palliative care consult appreciated. Patient is DNR/DNI and prognosis is guarded . VTE Mechanical Devices: Intermittant Pneumatic CD Resuscitation Status: DNR/DNI:Do Not Resuscitate/Intubate Time spent 35 minutes Armand Rodriguez MD Apr 10, 2016 17:37
--- NOTE | 2016-04-10 18:40 | NUR ---
RESPIRATORY/ACTIVITY Patient denies pain. Tolerating liquids PO and her diet well. Denies nausea. No emesis noted. Patient complains of SOB with exertion. Continues to be on O2 at [address] scan done this morning. Results are in and patient will be started on IV ABT per orders. Patient is a 2 PA to get up and SBA to transfer in the room. She has been using her call light appropriately. Family is at the bedside. Addendum: 04/11/16 at 1626 by AYDEN SAXENA RN LATE ENTRY FOR 04/11/16 0900 MD NOTIFICATION PO2 at 2 LPM in the mid-high 80's. Patient stated that she was coughing up blood. Minimal red streaked, thin sputum noted. Dr. Rodriguez was made aware of this during his rounds in the morning. CT scan of chest was ordered.
[2016-04-11] VITALS (16 sets, daily range): BP systolic 149–183; BP diastolic 60–95; PULSE 72–85; RESP 14–26; O2SAT 89–99
[2016-04-11] MEDS: Albuterol-Ipratropium 3 mL Inhalation Solution NEB SCH ×6 (00:23→21:52)
[2016-04-11] MEDS: Sodium Chloride LOK Flush 10 mL Syringe IVFLUSH SCH ×3 (00:30→13:54)
--- NOTE | 2016-04-11 01:52 | NUR ---
Respiratory Distress At beginning of shift patient complained of SOB, but states that it was no worse than it has been throughout the day. Patient requested to sleep in chair, stating that it was more comfortable for her at the time. Around approx 0000 patient called nurse to assist with using the BSC, and getting back into bed. Patient appeared to have increased dyspnea with transferring to BSC and bed. Patient took some time to improve oxygen saturations once back into bed, and 5L O2 via NC was needed to maintain saturations > 92%. Patient is currently on 5 L O2 via NC and O2 sat is 96%. ENGINEER BOOSTER AND EXHAUSTER applied. Will continue to monitor patients activity intolerance, and respiratory distress. Bed is locked, and in low position, and [place] alarm is on. Will continue Q1 hour checks.
[2016-04-11] MEDS: Piperacillin-Tazo 3.375 Gm Inj 3.375 GM in Dextrose 5% Minibag Plus 50 ML IV SCH ×3 (05:37→23:02)
[2016-04-11 08:34] LABS: Mean Corpuscular Hemoglobin 27.7 pg (27.0-35.0); Mean Corpuscular Volume 88.6 fL (81-100)
--- NOTE | 2016-04-11 09:00 | NUR ---
RESPIRATORY/MD NOTIFICATION Patient is on an oxymask at 6 LPM. Sats are in the low 90's at rest. She continues to be SOB at rest and exertion. Patient was just repositioned in bed. SBP-180's. AM meds administered. Will continue to monitor. Patient has poor appetite. Denies nausea. Denies pain at this time. PICC 2 lumen has brisk blood draw and flushes without any problems. Family is at the bedside. Dr. Rodriguez made aware of this. Addendum: 04/11/16 at 1555 by AYDEN SAXENA RN ADDENDUM FOR THIS AMS NOTES: Per MD insert IFC for accurate I/O and due to patients current condition. IFC inserted without any difficulty. Yellow UO noted. Transfer to ICU when a bed is available. Family is aware of this.
[2016-04-11] MEDS: Azithromycin Inj 500 MG in Dextrose 5% w/Vial Mate 250 ML IV SCH (09:17)
[2016-04-11] MEDS: Furosemide 10 mg/mL 4 mL Inj IVPUSH SCH (09:18)
[2016-04-11] MEDS: Omega-3 Fatty Acids 1,000 mg Capsule PO SCH (09:18)
--- NOTE | 2016-04-11 10:28 | NUR ---
JACOB: Patient being transferred to ICU not appropriate for JACOB at this time.
[2016-04-11] MEDS: ALPRAZolam 0.25 mg Tablet PO PRN ×2 (10:43→17:57)
--- NOTE | 2016-04-11 11:00 | NUR ---
Social Work Continued Discharge Planning: Patient from [facility] and accepted back upon discharge. Family wishing for placement in [place]. SW spoke to [facility] rep Andria, who states that patient accepted upon discharge. Per report in rounds, patient condition worsening. Possible ICU transfer when bed is available. SW to follow. PLAN: Accepted to [facility] in [place]. SW to follow pending further clinical course. Darryl MARTINS
--- NOTE | 2016-04-11 12:12 | PCM.PNMED ---
Subjective Date of Service Apr 11, 2016 Subjective Follow-up for respiratory failure, renal failure, anemia Patient seen and examined at bedside. Her condition worsen overnight, she should have And her oxygen requirement is now 6 L via nasal canula. She is afebrile, she denied chest pain CT scan of the chest show ARDS like picture and possible pneumonia. Exam Vital Signs Vital Sign - Last Date Time Temp Pulse Resp B/P Pulse Ox O2 Delivery O2 Flow Rate FiO2 04/11/16 10:27 84 171/85 OxyMask 6.00 04/11/16 09:30 24 89 04/11/16 09:16 36.7 91 Intake and Output 04/10/16 04/10/16 04/11/16 Cumulative From/Thru 15:00 23:00 07:00 04/06/16 17:26 - 04/11/16 06:11 Intake Total 238 ml 640 ml 370 ml 4863 ml Output Total 500 ml 824 ml 5174 ml Balance 238 ml 140 ml -454 ml -311 ml Intake Oral 640 ml 300 ml 3810 ml IV Total 238 ml 70 ml 453 ml Packed Cells 600 ml Output Urine Total 500 ml 824 ml 5174 ml # Voids 3 3 # Bowel Movements 1 0 10 Exam Gen : Obese female in bed comfortably. No acute distress HEENT : Sclerae is anicteric. On oxygen nasal cannula Mouth : Muscle mucosa, no oral thrush Neck: Supple no JVD no carotid bruit Chest: Respiratory efforts is labored with use of accessory muscle of abdomen Lung: Bilateral crackles. No wheezing Heart: S1-S2 regular rate and rhythm, Abdomen: Obese non tender non distended Extremity: 2+ edema bilaterally, no cyanosis Neuro: Grossly non focal IVs and Medications Medications Reviewed: Medications were reviewed in detail Lab and Diagnostics Result Diagram: 04/11/1682304/11/16823 X-Rays, CTs and MRIs Date of Service: 04/06/16 1820 PROCEDURE: X-RAY CHEST ONE VIEW, PORTABLE ([id number]) INDICATIONS: edema TECHNIQUE: One view of the chest was acquired. COMPARISON: [facility], CR, XR CHEST 1VW (PORTABLE), 02/22/2016, 19 :26. Surgical changes and devices: Right PICC line with the tip projecting in the lower SVC. Dual-lead cardiac pacer as before Lungs and pleura: No pneumothorax. Retrocardiac consolidation and low lung volumes. Mild patchy right basilar opacities. Cannot exclude small left pleural effusion Mediastinum: Mediastinal contours appear normal. Heart size is normal. Bones and chest wall: No suspicious bony lesions. Overlying soft tissues appear unremarkable. IMPRESSION: Dense retrocardiac consolidation suggesting pneumonia and/or aspiration/atelectasis. A small left pleural effusion cannot be excluded Diffuse ground glass opacities suspicious for early pulmonary edema. Please correlate clinically Dictated by: Broderick Morris M.D. on 04/06/2016 at 18:52 Approved by: Broderick Morris M.D. on 04/06/2016 at 18:53 Ct scan of chest reviewed : Bilateral patchy confluent areas of opacity are present within the lungs, as well as bilateral pleural effusions. Findings are most suggestive of infection or inflammation, such as pneumonia. In addition, there could be an inclusion of underlying ARDS or edema. Assessment & Plan This is an 85 y/o F with hx of CHF (last echo was several years ago and not in [facility] system), HTN, stage IV CKD base line creatinine 1.75, presented with complaint of worsening shortness of breath and generalized swelling over the past 2 weeks. Of note patient's family also states that she has gained approximately 30 pounds since February 05. Patient was given 40 mg of Lasix in the ED and was admitted for acute exacerbation of CHF. # Acute exacerbation diastolic heart failure - Increase Lasix to 40 mg PO twice daily -Continue strict I's and O, daily weight, fluid restriction to 2 L daily. Insert Buck catheter. # # Acute on chronic respiratory failure /ARDS / HCAP : CT scan finding compatible to possible pneumonia? ARDS like picture Zosyn and Azithromycin for possible pneumonia. Continue DuoNeb nebulizer, supplemental oxygen, pulmonary toilet. Patient unable to tolerate just PT Pulmonary consult requested. Gait discuss with critical care. # Pulmonary artery hypertension : Severe with pressure of 82 Pulmonary embolism was suspicious. CT angiogram not possible renal failure VQ scan showed low probability for pulmonary embolism. Lovenox discontinued. 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 -Acute on chronic renal failure : Improving slowly Monitor renal function and electrolytes closely while on diuretics. # Healing left humeral neck fracture, present on admission. - Physical therapy consult and recommendation noted. Continue PT while hospitalized. Out of bed encouraged. Will returned to inpatient rehab on discharge . # HTN : Uncontrolled -On amlodipine to 10 mg. Metoprolol 50 mg twice a day Hydralazine 50 mg orally 3 times a day. Continue to monitor and adjust hypertensive for blood pressure control\\\ This is a very sick patient with a myriad of medical issues as described above. Her condition has been deteriorating over the last past 24 hours . She is now on 6 L of oxygen via nasal canula for adequate saturation. Critical care consulted for possible transfer to ICU. Prognosis is guarded Patient is DNR/DNI VTE Mechanical Devices: Intermittant Pneumatic CD Resuscitation Status: DNR/DNI:Do Not Resuscitate/Intubate Time spent 35 minutes Armand Rodriguez MD Apr 11, 2016 12:12
--- NOTE | 2016-04-11 12:30 | NUR ---
TRANSFER Patient continues to be on O2 via an oxymask at 6 LPM. PO2 continues to be on the low 90's at rest and in the low to mid 80's with exertion. Continues to complain of SOB. Denies pain. Poor appetite. Denies nausea. No emesis noted. Denies SOB. Patient has been BR at this time due to respiratory status. IFC intact and draining to yellow colored UO. Xanax was administered earlier for complaints of anxiety. Report given to Chele Doss RN. Transferred to ICU via a hospital bed. Family is aware of this.
--- NOTE | 2016-04-11 13:05 | ABG ---
DateTimeAnalyzed 12:58:00 -_ pH ____7.396 - 7.350 7.450 pCO2 ___57.4__ -mmHg 35.0 45.0 pO2 ___57.9__ -mmHg 69.0 116 HCO3- ___34.5__ -mmol/L 22.0 26.0 ABE ____8.7__ -mmol/L -2.0 2.0 tHb ____9.2__ -g/dL O2Hb ___88.4__ -% COHb ____1.7__ -% MetHb ____1.1__ -% sO2 ___90.9__ -% FIO2 ___45.0__ -% Drawn By as - Date/Time Notified____ 13:04:00 -_ Spontaneous_RR ___28.0__ -b/min Liter_Flow ____6.0__ -L/min Oxygen Device 1 __oxymask - Notified By AMS - Notified Whom DR KENDREGAN - B 749 -mmHg tO2 ___11.4__ -Vol% Anup test _Positive -
--- NOTE | 2016-04-11 13:22 | NUR ---
Arrival to 2016/Bipap Pt transferred from OSC to 2016 at 1230. At this time, RR 22-26, with oxygen saturations 93% on 6L oxymask. Pulmonology in to see pt and ABGs completed by RT. Pt placed on Bipap at 1320 by RT. Pt now resting more comfortably. RR 22, 96% on bipap. Care ongoing.
[2016-04-11] MEDS ORDERED: 0.9% Sodium Chloride 250 ML ONE (13:47)
[2016-04-11] MEDS: hydrALAZINE 20 mg/mL Inj IV PRN (17:38)
--- NOTE | 2016-04-11 17:48 | NUR ---
Bloody sputum Pt had quarter-sized blood clot coughed up around 1730. Bun Icer aware.
--- NOTE | 2016-04-11 20:20 | CONS ---
[address] [address] CONSULTATION REPORT PATIENT: JALEN QUEZADA : 1930 MR#: [id number] ADMIT: 04/06/2016 JOB ID: [id number] DATE OF SERVICE: 04/11/2016 PULMONARY CRITICAL CARE CONSULTATION NOTE: REQUESTING PHYSICIAN: Armand Rodriguez MD REASON FOR CONSULTATION: Worsening hypoxemia. HISTORY OF PRESENT ILLNESS: The patient is an 85-year-old female who developed increasing edema over the past two weeks, gaining possibly 30 pounds since January. Associated with the edema was increasing shortness of breath, maybe some cough. No phlegm. No chest pain. No abdominal pain. No known prior pulmonary problems. The family states that the patient underwent a sleep study in the recent past. Was scheduled to get a CPAP mask for the new diagnosis of obstructive sleep apnea. The patient indicates she snores. Has been gaining weight, especially edema with a 30-pound weight gain in the past two months. She sleeps sitting up. The patient also suffered a left humeral neck fracture and right knee patellar fracture sustained in a fall. Did not require surgery. Was placed in a care facility for healing. However, there her condition slowly worsened. The patient is unable to give much more history. Somewhat tired, somewhat dyspneic. Just not feeling well. Much of the history is obtained from the two daughters. MEDICATIONS: On admission include alendronate, amlodipine, aspirin, atorvastatin, vitamin B12, ferrous sulfate, hydralazine, metoprolol, Berry fish oil, ranitidine, and sertraline. ALLERGIES: OXYCODONE: SOMNOLENT FOR A NUMBER OF DAYS. REVIEW OF SYSTEMS: No particular problem with headache. Poor appetite. Taking some liquids. No dysphagia. No heartburn. No chest or abdominal pain. Increasing swelling in both lower extremities. OBJECTIVE: Temperature 36.7, pulse 80, respiratory rate 24, blood pressure 183/95, O2 sat on 6 liters OxyMask is 91%. I and O shows 1.2 liters in, 1.3 liters out. General appearance: Well-developed, well-nourished, moderately overweight female in mild to moderate respiratory discomfort. Breathing a little bit heavily. Mild use of accessory muscles. Some facial distress. Eyes: Conjunctiva pink. Nose: Mild erythema. Neck: Supple. Thyroid not palpable. Chest: Trachea is midline. Somewhat decreased breath sounds. Bibasilar crackles extending up into the right mid lung field, maybe the left, with decreased breath sounds on the left. No wheezing. Heart: Regular rhythm. Heart tones normal. Abdomen: Soft. Nontender. Extremities: Two to 3+ pretibial edema extending up into the thigh. Swelling of both upper extremities. LABORATORY DATA: Shows a white count of 9000. No differential available. Hemoglobin stable at 9.5. Platelet count stable at 249,000. Sodium 134, potassium 4.4, chloride 88, CO2 is 35, BUN 26, creatinine 1.5, calcium 8.1 with an albumin of 3.8. Transaminases, total bilirubin, and alkaline phosphatase normal. ProBNP is 10,385. Chest x-ray on admission showed retrocardiac consolidation and low lung volumes with patchy right basilar infiltrates. A lung scan done to evaluate for PE, as the patient's creatinine was too high for safe CT of the chest with angio with PE protocol, showed a low probability of pulmonary embolism with matched perfusion ventilation defects. CT of the chest without contrast done yesterday shows bilateral patchy confluent areas of opacity. Arterial blood gases on OxyMask at 6 L a minute show a pO2 of 57, a pCO2 of 57, and a pH of 7.39. Echocardiogram done on April 07, 2016 shows left ventricular wall thickness at the upper limits of normal. Left ventricle is hyperdynamic, with ejection fraction of 70%-75%. Flattened septum consistent with RV pressure volume overload. Right ventricle moderately dilated. Right ventricular systolic function at the lower limits of normal. Right ventricular systolic pressure estimated at 82, assuming a right atrial pressure of 15. IVC is dilated and collapsible less than 15%. ASSESSMENT: Hypoxemic hypercarbic respiratory failure. The respiratory failure seems chronic, with a CO2 of 57. Not sure about the pO2, though she is currently using 6 L. However, she has apparently documented obstructive sleep apnea and certainly has pulmonary arterial hypertension, rather severe in degree. Suspect she has longstanding obstructive sleep apnea, longstanding hypoxemia probably during the day as well as at night. This has developed into cor pulmonale and is probably a significant part of her edema. With the elevated right-sided pressures, I am loathe to give more Lasix. Describes a hyperdynamic left ventricle suggesting underfilling. With the severe pulmonary arterial hypertension she requires high filling pressures and probably needs much of the fluid. The patient is DO NOT INTUBATE code status. Will start her on BiPAP as she does have CO2 retention, albeit chronic. If she does not tolerate BiPAP we can try high-flow oxygen but I would much prefer the BiPAP with the ventilatory component of its application. Would tend to hold IV fluids and either diuresing her or fluid-loading her. She is somewhat hypertensive, possibly due to the hypoxemia, possibly due to her shortness of breath and distress. Will continue with the previously ordered medications. PLAN: 1. Hold IV fluids. Allow ad geovanny oral fluids. 2. BiPAP starting at about 12/5, aiming for tidal volumes of maybe 400. 3. Morning lytes. 4. Consider recheck of thyroid as TSH mildly elevated at 6.4 micro international units per mL, the upper limits normal being 4.5. 5. Continue other medications. 6. AM blood work and a chest x-ray. Discussed the situation with the patient, but also with the patient's family who are in attendance. Discussed Lasix, fluid, but more the sleep apnea and the pulmonary hypertension in great detail. Time spent in critical care is 70 minutes. Thank you so much, Dr. Rodriguez, for asking me see this most delightful engaging individual. Will follow her respiratory status closely along with you.
[2016-04-12] VITALS (15 sets, daily range): BP systolic 129–178; BP diastolic 59–84; PULSE 75–85; RESP 15–29; O2SAT 95–97
[2016-04-12] MEDS: Sodium Chloride LOK Flush 10 mL Syringe IVFLUSH SCH ×3 (00:30→15:50)
[2016-04-12] MEDS: Albuterol-Ipratropium 3 mL Inhalation Solution NEB SCH ×5 (01:39→15:22)
[2016-04-12 04:40] LABS: BASOPHILS % (AUTO) 0.2 % (0-3); EOSINOPHILS % (AUTO) 1.1 % (0-5); MONOCYTES % (AUTO) 13.7 % (4-12); Mean Corpuscular Hemoglobin 27.8 pg (27.0-35.0); Mean Corpuscular Volume 88.8 fL (81-100); NEUTROPHILS % (AUTO) 72.1 % (40-74); Platelet Count 234 bil/L (150-400)
--- NOTE | 2016-04-12 04:53 | NUR ---
Respiratory: Pt on 9L Oxymask during assessment and medications, without mask pt O2 was into the 70's, pt able to recover quickly. Pt tolerated well stating "my breathing has become so much better" SpO2 93-95% on 9L Oxymask. Pt then on Bipap for the rest of the shift : 50% and 12 over 5. Pt able to tolerate mask. VSS and Tele Afib and occasionally V paced
[2016-04-12 05:12] LABS: Magnesium 1.6 mg/dL (1.6-2.6); Phosphorus 3.6 mg/dL (2.5-4.9)
[2016-04-12] MEDS: Piperacillin-Tazo 3.375 Gm Inj 3.375 GM in Dextrose 5% Minibag Plus 50 ML IV SCH ×3 (06:37→22:31)
--- NOTE | 2016-04-12 08:28 | DRSVH ---
PROCEDURE: X-RAY CHEST ONE VIEW, PORTABLE ([id number]) INDICATIONS: pulm arterial hypertension TECHNIQUE: One view of the chest was acquired. COMPARISON: [facility], CR, XR CHEST 1VW (PORTABLE), 04/09/2016, 17:29. FINDINGS: Surgical changes and devices: Pacemaker and right PICC line are unchanged. Lungs and pleura: There is a persistent appearance of bilateral patchy and confluent opacities as wel l as blunting of the costophrenic angles. Overall appearance has not significantly changed. Mediastinum: Mediastinal contours appear normal. Heart size is normal. Bones and chest wall: No suspicious bony lesions. Overlying soft tissues appear unremarkable. Left humeral neck fracture is again noted. IMPRESSION: No appreciable interval change in bilateral pulmonary opacities suggestive of pneumonia w ith likely areas of underlying edema and effusion. Dictated by: Shanna Rose M.D. on 04/12/2016 at 8:25 Approved by: Shanna Rose M.D. on 04/12/2016 at 8:26
[2016-04-12] MEDS: Azithromycin Inj 500 MG in Dextrose 5% w/Vial Mate 250 ML IV SCH (08:50)
[2016-04-12] MEDS: Omega-3 Fatty Acids 1,000 mg Capsule PO SCH (09:14)
[2016-04-12] MEDS: ALPRAZolam 0.25 mg Tablet PO PRN ×2 (09:32→20:44)
[2016-04-12] MEDS ORDERED: Furosemide 10 mg/mL 2 mL Inj IVPUSH ONE (10:25)
--- NOTE | 2016-04-12 10:58 | NUR ---
NUTRITION ASSESSMENT: ASSESS:85 YO female transferred to CCU with worsening hypoxemia related to new diagnosis obstructive sleep apnea, severe pulmonary HTN and cor pulmonale. Patient reports a 30-pound weight gain since 02/07. She is currently requiring BiPAP and has been downgraded to PCU status. Code status: DNR / DNI. PMHx:Recent diagnosis PAL, HTN, CHF, CKD stage IV, osteoporosis, GERD, hypothyroid, anxiety, hyperlipidemia, fractured left humeral neck and right patella related to recent GLF. DIET:Heart healthy. PO intake 0 - 50% trays related to requirement for BiPAP. LABS: Reviewed. Na 132, Chloride 87, CO2 36, Cr 1.48, Glu 126, A1c 6.1, Ca 7.8, Alb 3.3. MEDICATIONS: Reviewed. Lasix on hold, synthroid, vitamin B12, fish oil. NUTRITION FOCUSED PHYSICAL ASSESSMENT: GI symptoms / stool: BM x 1 today.Carlos: 14 Skin Integrity: No issues reported. ANTHROPOMETRICS: Current Wt: 94.4 kgBMI: 36.0 kg/m2.Admit weight: 93.18 kg IBW: Utilized dry weight from 02/07 of 82.0 kg. IBW 52.3 kg (156.9% IBW) ESTIMATED NEEDS (CLASS I OBESITY, STG. IV CKD) Calories: 1307 - 1568 kcal (25 - 30 kcal / kg IBW) Protein: 52 - 63 g protein (1.0 - 1/2 g / kg IBW) Fluid: Approx 2050 ml (25 mL / kg dry weight) NUTRITION DIAGNOSIS: 1)Inadequate oral intake related to BiPAP use, as evidenced by inconsistent intake of 0 - 50% trays. INTERVENTION: 1) Will add Suplena renal supplement to lunch and dinner trays. MONITOR/EVALUATE: Diet / supplement tolerance, PO intake, labs, GI/nutrition status. Follow up per moderate nutrition risk guidelines.
--- NOTE | 2016-04-12 10:59 | ABG ---
DateTimeAnalyzed 10:53:00 -_ pH ____7.521 - 7.350 7.450 pCO2 ___42.1__ -mmHg 35.0 45.0 pO2 ___63.1__ -mmHg 69.0 116 HCO3- ___34.2__ -mmol/L 22.0 26.0 ABE ___10.5__ -mmol/L -2.0 2.0 tHb ____8.8__ -g/dL O2Hb ___94.8__ -% COHb ____1.7__ -% MetHb ____0.9__ -% sO2 ___97.3__ -% FIO2 ___50.0__ -% Pressure_Support ____7.0__ -cmH2O CPAP ___12.0__ -cmH2O PEEP ____5.0__ -cmH2O Set_RR ___12.0__ -b/min Drawn By as - Date/Time Notified____ 10:59:00 -_ Spontaneous_RR ___22.0__ -b/min Oxygen Device 1 ____BIPAP - Notified By ams - Notified Whom ___Dr. Monsivais - B 743 -mmHg tO2 ___11.8__ -Vol% Anup test _Positive -
[2016-04-12] MEDS ORDERED: 0.9% Sodium Chloride 250 ML ONE ×2 (12:00→23:40)
--- NOTE | 2016-04-12 12:09 | PCM.PNMED ---
Subjective Date of Service Apr 12, 2016 Subjective - Pt seen and examined this morning. Currently on BiPAP. Tolerating well. - Transferred to CCU for worsening respiratory status. Exam Vital Signs Vital Sign - Last Date Time Temp Pulse Resp B/P Pulse Ox O2 Delivery O2 Flow Rate FiO2 04/12/16 11:23 73 22 145/75 97 55 04/12/16 08:00 CPAP/BIPAP 04/12/16 08:00 36.7 04/11/16 12:40 6.00 Intake and Output 04/11/16 04/11/16 04/12/16 Cumulative From/Thru 15:00 23:00 07:00 04/06/16 17:26 - 04/12/16 05:58 Intake Total 250 ml 520 ml 5633 ml Output Total 475 ml 500 ml 6149 ml Balance -225 ml 20 ml -516 ml Intake Oral 250 ml 300 ml 4360 ml IV Total 220 ml 673 ml Packed Cells 600 ml Output Urine Total 475 ml 500 ml 6149 ml # Voids 3 # Bowel Movements 1 11 Exam Gen : Obese female in bed comfortably. No acute distress HEENT : Sclerae is anicteric. On oxygen nasal cannula Mouth : Muscle mucosa, no oral thrush Neck: Supple no JVD no carotid bruit Chest: Respiratory efforts is labored with use of accessory muscle of abdomen Lung: Bilateral crackles. No wheezing Heart: S1-S2 regular rate and rhythm, Abdomen: Obese non tender non distended Extremity: 2+ edema bilaterally, no cyanosis Neuro: Grossly non focal IVs and Medications Medications Reviewed: Medications were reviewed in detail Lab and Diagnostics Result Diagram: 04/12/16 04104/12/16410 X-Rays, CTs and MRIs Date of Service: 04/06/16 182 PROCEDURE: X-RAY CHEST ONE VIEW, PORTABLE ([id number]) INDICATIONS: edema TECHNIQUE: One view of the chest was acquired. COMPARISON: [facility], CR, XR CHEST 1VW (PORTABLE), 02/22/2016, 19 :26. Surgical changes and devices: Right PICC line with the tip projecting in the lower SVC. Dual-lead cardiac pacer as before Lungs and pleura: No pneumothorax. Retrocardiac consolidation and low lung volumes. Mild patchy right basilar opacities. Cannot exclude small left pleural effusion Mediastinum: Mediastinal contours appear normal. Heart size is normal. Bones and chest wall: No suspicious bony lesions. Overlying soft tissues appear unremarkable. IMPRESSION: Dense retrocardiac consolidation suggesting pneumonia and/or aspiration/atelectasis. A small left pleural effusion cannot be excluded Diffuse ground glass opacities suspicious for early pulmonary edema. Please correlate clinically Dictated by: Broderick Morris M.D. on 04/06/2016 at 18:52 Approved by: Broderick Morris M.D. on 04/06/2016 at 18:53 Ct scan of chest reviewed : Bilateral patchy confluent areas of opacity are present within the lungs, as well as bilateral pleural effusions. Findings are most suggestive of infection or inflammation, such as pneumonia. In addition, there could be an inclusion of underlying ARDS or edema. Assessment & Plan 85 y/o F with hx of CHF (last echo was several years ago and not in [facility] system) , HTN, stage IV CKD base line creatinine 1.75, presented with complaint of worsening shortness of breath and generalized swelling over the past 2 weeks. Of note patient's family also states that she has gained approximately 30 pounds since February 05. Patient was given 40 mg of Lasix in the ED and was admitted for acute exacerbation of CHF. She was transferred to ICU yesterday due to worsening respiratory status. # # Acute on chronic respiratory failure /ARDS / HCAP on BiPAP CT scan finding compatible to possible pneumonia? ARDS like picture Zosyn and Azithromycin for possible pneumonia. Continue DuoNeb nebulizer, supplemental oxygen, pulmonary toilet. Patient unable to tolerate just PT # Acute exacerbation diastolic heart failure - Lasix to 40 mg PO twice daily -Continue strict I's and O, daily weight, fluid restriction to 2 L daily. Insert Buck catheter. # Pulmonary artery hypertension : Severe with pressure of 82 Pulmonary embolism was suspicious. CT angiogram not possible renal failure VQ scan showed low probability for pulmonary embolism. Lovenox discontinued. 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 -Acute on chronic renal failure : Improving slowly Monitor renal function and electrolytes closely while on diuretics. # Healing left humeral neck fracture, present on admission. - Physical therapy consult and recommendation noted. Continue PT while hospitalized. Out of bed encouraged. Will returned to inpatient rehab on discharge . # HTN : Uncontrolled -On amlodipine to 10 mg. Metoprolol 50 mg twice a day Hydralazine 50 mg orally 3 times a day. Continue to monitor and adjust hypertensive for blood pressure control\\\ Prognosis: guarded Patient is DNR/DNI VTE Mechanical Devices: Intermittant Pneumatic CD Resuscitation Status: DNR/DNI:Do Not Resuscitate/Intubate Juan F Lea MD Apr 12, 2016 12:09
--- NOTE | 2016-04-12 12:57 | NUR ---
JACOB signed by family. ELIEZER Wilkerson
--- NOTE | 2016-04-12 14:48 | PCM.PNMED ---
Subjective Date of Service Apr 12, 2016 Subjective A 5-year-old female who is doing well on BPAP last night. Patient is requiring BPAP [id number] with desaturations and discomfort once BPAP was removed. Patient signal in the family that she wishes to be put on comfort care. This morning her ABG showed good ventilation with continued hypoxia. Discussion with family bowel movement patient comfort care with plans to discuss in more depth on Thursday. Exam Vital Signs Vital Sign - Last Date Time Temp Pulse Resp B/P Pulse Ox O2 Delivery O2 Flow Rate FiO2 04/12/16 12:00 36.9 75 18 142/68 96 CPAP 55 04/11/16 12:40 6.00 Intake and Output 04/11/16 04/11/16 04/12/16 Cumulative From/Thru 15:00 23:00 07:00 04/06/16 17:26 - 04/12/16 05:58 Intake Total 250 ml 520 ml 5633 ml Output Total 475 ml 500 ml 6149 ml Balance -225 ml 20 ml -516 ml Intake Oral 250 ml 300 ml 4360 ml IV Total 220 ml 673 ml Packed Cells 600 ml Output Urine Total 475 ml 500 ml 6149 ml # Voids 3 # Bowel Movements 1 11 Exam General: Appropriate for age no acute distress excellent HEENT: supple Cardiovascular: Regular rate and rhythm Respiratory: Coarse breath sounds, no crackles heard, bronchial Abdomen: Benign, not distended Extremities: Pitting edema bilaterally up to at least the knee Psych: Patient sleeping Neuro: Sensation grossly intact lower extremities IVs and Medications Medications Reviewed: Medications were reviewed in detail Lab and Diagnostics Result Diagram: 04/12/16 04104/12/16 041 X-Rays, CTs and MRIs Date of Service: 04/06/16 1820 PROCEDURE: X-RAY CHEST ONE VIEW, PORTABLE ([id number]) INDICATIONS: edema TECHNIQUE: One view of the chest was acquired. COMPARISON: [facility], CR, XR CHEST 1VW (PORTABLE), 02/22/2016, 19 :26. Surgical changes and devices: Right PICC line with the tip projecting in the lower SVC. Dual-lead cardiac pacer as before Lungs and pleura: No pneumothorax. Retrocardiac consolidation and low lung volumes. Mild patchy right basilar opacities. Cannot exclude small left pleural effusion Mediastinum: Mediastinal contours appear normal. Heart size is normal. Bones and chest wall: No suspicious bony lesions. Overlying soft tissues appear unremarkable. IMPRESSION: Dense retrocardiac consolidation suggesting pneumonia and/or aspiration/atelectasis. A small left pleural effusion cannot be excluded Diffuse ground glass opacities suspicious for early pulmonary edema. Please correlate clinically Dictated by: Broderick Morris M.D. on 04/06/2016 at 18:52 Approved by: Broderick Morris M.D. on 04/06/2016 at 18:53 Ct scan of chest reviewed : Bilateral patchy confluent areas of opacity are present within the lungs, as well as bilateral pleural effusions. Findings are most suggestive of infection or inflammation, such as pneumonia. In addition, there could be an inclusion of underlying ARDS or edema. Assessment & Plan Assessment 1. Hypoxemic hypercarbic respiratory failure 2. Severe cor pulmonale 3. Chronic pulmonary hypertension 4. Obstructive sleep apnea 5. Stage III chronic kidney disease 6. Anxiety Neurological: Patient is intermittently awake and conversant with family. Cardiovascular: The patient has severe edema in lower extremities and what appears to be pulmonary edema suggesting severe cor pulmonale with concern for possible outflow obstruction of the left ventricle due to leftward septal deviation. Echo revealed a hiatal right ventricular pressure of 85. Left ventricle was hyperdynamic. Due to right-sided failure have elected to stop pushing Lasix as this patient is preload dependent. However because of the severe overload we will start her on 10 mg of Lasix with a drip of 2 mg per hour. Will reassess in the afternoon. Patient still receiving her metoprolol 50 mg and her levothyroxine. Respiratory: ABG this a.m. showed resolution of hypercarbia patient still remains hypoxic. She also has a respiratory alkalosis. Patient is being moved from BPap to CPAP although we are tentatively about any improvement may be seen. The follow-up chest x-ray in the morning but is highly likely that the patient will be moved to comfort care once family is able to meet together and discussed possible ways to move forward. Patient has DuoNeb scheduled although she may not need these. GI: Defer to primary Infection: There is no elevated white count or peripheral calcitonin. Low suspicion for infection. Patient is continued on azithromycin and Zosyn. Nutrition: Patient takes the mask off to eat although she desats when she does this. Disposition: Discussed with family today was useful in developing a plan for moving forward. Patient is expressing concerns that she wishes to move to comfort care and family is willing to do so. The only Reservation is they are waiting for family to come into town to be able to meet with everyone together. This will happen tomorrow and we will await their decision to move the patient to comfort care. Time spent: One hour VTE Mechanical Devices: Intermittant Pneumatic CD Resuscitation Status: DNR/DNI:Do Not Resuscitate/Intubate Attending Statement The patient was seen and examined together with Dr. Monsivais on 04/12/2016 and I agree with the history, exam and plan as outlined in the note above. Kelvin Monsivais DO Apr 12, 2016 14:48 Alexandro Little MD Apr 25, 2016 09:58
--- NOTE | 2016-04-12 17:55 | NUR ---
Mentation/Resp/output/PO Patient is very uncomfortable and anxious at beginning of shift. Gave .25 mg Xanax per her request and then patient was able to rest more comfortably. On Bipap and then changing to Cpap after ABGs obtained. Tolerating Cpap fairly well. Cpap at 7, 55%. Sats at 96%. Lungs decreased with some crackles in bases. Gave 10 mg IV Lasix followed by a Lasix gtt at 2 mg/hr. UOP this shift, 900 mls. Family states that edema has improved compared to yesterday. Patient has been on bedrest due to SOB with exertion. Turning in bed per patient comfort level. Has refused anything to eat today. Drinking broth and water. Given frequent oral care. Family at bedside a all times. Continuing with poc.
[2016-04-12] MEDS ORDERED: Albuterol-Ipratropium 3 mL Inhalation Solution NEB PRN (18:16)
[2016-04-13] VITALS (15 sets, daily range): BP systolic 131–198; BP diastolic 57–93; PULSE 75–87; RESP 15–28; O2SAT 91–98
[2016-04-13] MEDS: Sodium Chloride LOK Flush 10 mL Syringe IVFLUSH SCH ×3 (00:30→16:27)
[2016-04-13] MEDS: ALPRAZolam 0.25 mg Tablet PO PRN ×2 (00:37→07:51)
[2016-04-13 05:10] LABS: BASOPHILS % (AUTO) 0.2 % (0-3); EOSINOPHILS % (AUTO) 0.5 % (0-5); MONOCYTES % (AUTO) 9.7 % (4-12); Mean Corpuscular Hemoglobin 27.2 pg (27.0-35.0); Mean Corpuscular Volume 88.5 fL (81-100); NEUTROPHILS % (AUTO) 79.6 % (40-74); Platelet Count 224 bil/L (150-400)
--- NOTE | 2016-04-13 06:08 | NUR ---
Respiratory/BP Pt has c/o dyspnea while on CPAP and had rapid, shallow respirations of 35RPM along with a feeling of tightness in the chest with SpO2 92-96%. Pt's tidal volume was between 200-300 at this time. Pt was given Xanax when this occurred and pt was reminded to slow down resp rate and make each breath as deep as possible. Pt was able to slow resp rate down to 16-26RPM with a tidal volume that increased into the mid-300s with SpO2 consistently 95-97% while on the CPAP. Pt kept the CPAP on all night with the exception of taking PO medication in applesauce and occasional sips of water. When CPAP mask was removed the pt would quickly desat to SpO2 80-81% and it would take minutes before the pt's SpO2 would get back into the mid-90s. Pt's left lung has fine crackles scattered throughout. Pt's right lung has expiratory coarse sounds throughout. Pt has remained hypertensive throughout the shift. Pt's SBP was >165 and pt was given 10mg of hydralazine IVP and the SBP did go down into the 130s-150s.
[2016-04-13] MEDS: Piperacillin-Tazo 3.375 Gm Inj 3.375 GM in Dextrose 5% Minibag Plus 50 ML IV SCH ×3 (06:28→22:00)
[2016-04-13] MEDS: Azithromycin Inj 500 MG in Dextrose 5% w/Vial Mate 250 ML IV SCH (07:52)
[2016-04-13] MEDS: Omega-3 Fatty Acids 1,000 mg Capsule PO SCH (07:55)
[2016-04-13] MEDS ORDERED: Albuterol 2.5 mg/3 mL Inhalation Solution NEB ONE (08:20)
[2016-04-13] MEDS ORDERED: Sodium Chloride NAS 45 mL Spray NASAL PRN (11:15)
[2016-04-13] MEDS ORDERED: ALPRAZolam 0.25 mg Tablet PO PRN (11:15)
--- NOTE | 2016-04-13 11:23 | PCM.PNMED ---
Subjective Date of Service Apr 13, 2016 Subjective - Pt seen and examined this morning. In mild respiratory distress. Exam Vital Signs Vital Sign - Last Date Time Temp Pulse Resp B/P Pulse Ox O2 Delivery O2 Flow Rate FiO2 04/13/16 10:01 83 04/13/16 09:45 CPAP/BIPAP 04/13/16 08:25 28 96 8.00 04/13/16 08:11 36.7 183/93 04/13/16 04:07 55 Intake and Output 04/12/16 04/12/16 04/13/16 Cumulative From/Thru 15:00 23:00 07:00 04/06/16 17:26 - 04/13/16 06:00 Intake Total 789 ml 317 ml 6739 ml Output Total 900 ml 800 ml 7849 ml Balance -111 ml -483 ml -1110 ml Intake Oral 350 ml 0 ml 4710 ml IV Total 439 ml 317 ml 1429 ml Packed Cells 600 ml Output Urine Total 900 ml 800 ml 7849 ml # Voids 3 # Bowel Movements 1 12 Exam Gen : Obese female in bed comfortably. In mild respiratory distress HEENT : Sclerae is anicteric. On oxygen nasal cannula Mouth : dry mucous membranes Neck: Supple no JVD no carotid bruit Chest: Respiratory efforts is labored with use of accessory muscle of abdomen Lung: Bilateral crackles. No wheezing Heart: S1-S2 regular rate and rhythm, Abdomen: Obese non tender non distended Extremity: 2+ edema bilaterally, no cyanosis Neuro: Grossly non focal Lab and Diagnostics Result Diagram: 04/13/16 0500 04/13/16 0500 X-Rays, CTs and MRIs Date of Service: 04/06/16 182 PROCEDURE: X-RAY CHEST ONE VIEW, PORTABLE ([id number]) INDICATIONS: edema TECHNIQUE: One view of the chest was acquired. COMPARISON: [facility], CR, XR CHEST 1VW (PORTABLE), 02/22/2016, 19 :26. Surgical changes and devices: Right PICC line with the tip projecting in the lower SVC. Dual-lead cardiac pacer as before Lungs and pleura: No pneumothorax. Retrocardiac consolidation and low lung volumes. Mild patchy right basilar opacities. Cannot exclude small left pleural effusion Mediastinum: Mediastinal contours appear normal. Heart size is normal. Bones and chest wall: No suspicious bony lesions. Overlying soft tissues appear unremarkable. IMPRESSION: Dense retrocardiac consolidation suggesting pneumonia and/or aspiration/atelectasis. A small left pleural effusion cannot be excluded Diffuse ground glass opacities suspicious for early pulmonary edema. Please correlate clinically Dictated by: Broderick Morris M.D. on 04/06/2016 at 18:52 Approved by: Broderick Morris M.D. on 04/06/2016 at 18:53 Ct scan of chest reviewed : Bilateral patchy confluent areas of opacity are present within the lungs, as well as bilateral pleural effusions. Findings are most suggestive of infection or inflammation, such as pneumonia. In addition, there could be an inclusion of underlying ARDS or edema. Assessment & Plan 85 y/o F with hx of CHF (last echo was several years ago and not in [facility] system) , HTN, stage IV CKD base line creatinine 1.75, presented with complaint of worsening shortness of breath and generalized swelling over the past 2 weeks. Of note patient's family also states that she has gained approximately 30 pounds since February 05. Patient was given 40 mg of Lasix in the ED and was admitted for acute exacerbation of CHF. She was transferred to ICU due to worsening respiratory status. # Acute on chronic respiratory failure /ARDS / HCAP on BiPAP CT scan finding compatible to possible pneumonia? ARDS like picture Zosyn and Azithromycin for possible pneumonia. Continue DuoNeb nebulizer, supplemental oxygen, pulmonary toilet. Patient unable to tolerate just PT Discussed with family today about moving forward with comfort care later today once all family members will arrive. Patient also expressed about comfort care yesterday. # Acute exacerbation diastolic heart failure - Lasix to 40 mg PO twice daily -Continue strict I's and O, daily weight, fluid restriction to 2 L daily. Insert Buck catheter. # Pulmonary artery hypertension : Severe with pressure of 82 Pulmonary embolism was suspicious. CT angiogram not possible renal failure VQ scan showed low probability for pulmonary embolism. Lovenox discontinued. 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 -Acute on chronic renal failure : Improving slowly Monitor renal function and electrolytes closely while on diuretics. # Healing left humeral neck fracture, present on admission. - Physical therapy consult and recommendation noted. Continue PT while hospitalized. Out of bed encouraged. Will returned to inpatient rehab on discharge . # HTN : Uncontrolled -On amlodipine to 10 mg. Metoprolol 50 mg twice a day Hydralazine 50 mg orally 3 times a day. Continue to monitor and adjust hypertensive for blood pressure control\\\ Prognosis: guarded Patient is DNR/DNI Discussed with family today about moving forward with comfort care later today once all family members will arrive. Patient also expressed about comfort care yesterday. VTE Mechanical Devices: Intermittant Pneumatic CD Resuscitation Status: DNR/DNI:Do Not Resuscitate/Intubate Juan F Lea MD Apr 13, 2016 11:23
--- NOTE | 2016-04-13 12:00 | NUR ---
PT hold this date PT hold sec to respiratory fragility; pt and family considering transition to comfort care today, but waiting for further family to arrive; PT to f/u 04/14 to evaluate the appropriateness of PT pending family decision
[2016-04-13] MEDS ORDERED: fentaNYL-PF 50 mCg/mL 2 mL Inj IVPUSH PRN (13:10)
[2016-04-13] MEDS: LORazepam 100 mg/100 mL NS 100 MG in IV Premix 100 EACH IV SCH (13:10)
[2016-04-13] MEDS ORDERED: Furosemide Inj 100 MG in 0.9% Sodium Chloride 90 ML IV SCH (13:15)
[2016-04-13] MEDS ORDERED: LORazepam 100 mg/100 mL Drip IV PRN ×2 (13:45)
--- NOTE | 2016-04-13 17:09 | NUR ---
Social Work: Note D&A: Per MD in AM rounds, pt likely to transition to comfort care today, per agreement with family. P.T. is currently holding services in this context. No social work needs apparent at this time. P: Pt likely to transition to comfort care at [facility]. MS will continue to follow. ELIEZER Wilkerson
--- NOTE | 2016-04-13 18:53 | PROG NOTE ---
[address] [address] PROGRESS NOTE PATIENT: JALEN QUEZADA : 1930 MR#: [id number] ADMIT: 04/06/2016 JOB ID: [id number] DATE: 04/13/2016 PULMONARY CRITICAL CARE FOLLOWUP NOTE: PROBLEM LIST: 1. Palliative care. 2. Severe pulmonary arterial hypertension. 3. Congestive heart failure. 4. Hypoxemia. 5. Severe dyspnea. SUBJECTIVE: The patient just wants to have the shortness of breath go away. She understands the prognosis is quite poor. Just wants to be a bit comfortable. States the mask helps a little bit, but there are times she is quite dyspneic. Some cough. No particular problem with sputum production. No pain. OBJECTIVE: Temperature 36.7, pulse 77-86, respiratory rate 24-28, blood pressure 183/93, O2 sat on CPAP at a level of 5 shows a tidal volume of high 200s, mid 300s at times. General appearance: Intermittent anxiety associated with a graceful acceptance of her condition. At times, quite calm and able to discuss the situation of her impending quite dispassionately. Just wants the shortness of breath to go away. Chest: Decreased breath sounds. Diffuse crackles throughout both lung goodson. Heart: Heart tones seem normal. Abdomen is soft. Nontender. Some bowel tones are present. Extremities: Two to 3+ pretibial edema. LABORATORY DATA: Shows a white count of 9900 with 79 polymorphonuclears, 9 lymphocytes, 9 monocytes. Hemoglobin stable at 8.8. Platelet count stable, 224,000. Sodium 135, potassium 3.7, chloride 89, CO2 is 34, BUN 22, creatinine 1.3. Calcium 7.6. Transaminases are normal. Alkaline phos normal. Albumin 3.6. Free T4 normal at 1.05. Yesterday's chest x-ray shows persistent patchy opacities, unchanged from prior films. ASSESSMENT: 1. Severe dyspnea with pulmonary hypertension and congestive heart failure. Patient is currently on Lasix infusion to try to minimize hemodynamic problems associated with the need for high preload due to her pulmonary artery hypertension and the need for some increase in flow across the pulmonic valve that is markedly decreasing left ventricular filling. We will raise the Lasix drip. Try to see if that might help. 2. Dyspnea. The patient is on CPAP, using a BiPAP mask. Her CO2 is relatively normal at 42 and I think we could probably get by with a high-flow mask which will maybe be a bit more comfortable and just as efficacious as the BiPAP mask. I had a long discussion with the family regarding goals. Both they and the patient know she is dying. Wishes her last time to be comfortable. She has apparently made peace with all family relatives who have come to visit her and situation now is to keep her comfortable in her last time. PLAN: 1. High-flow mask, maybe starting at an FiO2 of 0.7 with a flow of 50 L a minute, titrating to effect. 2. Start Ativan infusion at 0.5 mg an hour after a 0.5 mg IV push. 3. P.r.n. fentanyl starting at 25 mg q.2 h. p.r.n. shortness of breath. May want to switch over or perhaps add a fentanyl infusion depending on response to the Ativan and fentanyl. Ativan more helpful with anxiety; fentanyl more helpful with shortness of breath. Will see how we do, but goal is patient comfort at this point. 4. Limit blood draws. Do not see that we need any particularly.
--- NOTE | 2016-04-13 19:22 | NUR ---
Anxiety/Breathing/Comfort measures Pt reporting anxiety this am, given PRN xanax dose by monorail charger operator which Pt reported as effective for several hours. Pt started on lorazepam gtt at intro rate of 0.5mg/Hr and titrated incrementally up to 2mg/Hr. Pt denied further anxiety and family at bedside reported Pt comfortable for remainder of shift. Pt also reporting SOB this am which improved with xanax PRN. Pt transitioned to Hi Ciro nasal cannula at 70% FiO2 and 30L by RT, Pt reported as improvement from C-PAP with regards to dry mouth and breathing effort, SPO2 sats in the mid 90s on Hi Ciro nasal cannula. Pt given one dose of PRN fentanyl while titrating lorazepam gtt up to assist with SOB which appeared to be effective. Pt placed officially on comfort measures this afternoon, heart monitor removed, Pt comfortable per family at bedside, oncoming NOC RN made aware.
[2016-04-13] MEDS: Furosemide Inj 100 MG in 0.9% Sodium Chloride 90 ML IVPUSH SCH (20:49)
[2016-04-14 00:15] VITALS: BP 149/64; PULSE 80; RESP 16; O2SAT 95
[2016-04-14 00:54] VITALS: RESP 16; O2SAT 96
[2016-04-14] MEDS: Sodium Chloride LOK Flush 10 mL Syringe IVFLUSH SCH ×3 (02:26→08:29)
[2016-04-14 04:37] VITALS: PULSE 77; RESP 16; O2SAT 95
--- NOTE | 2016-04-14 04:46 | NUR ---
Comfort/Respiratory/ Pt has not c/o pain or anxiety or SOB during the shift. The pt appears comfortable and has remained asleep the entire shift. Pt is still on Ativan drip at 2ml/hr and Lasix drip at 5ml/hr. Pt has had no PO intake and pt's DPOA has refused ABX and PO medications. RT has slowly titrated pt's supplemental O2 via hi-flow nasal cannula throughout the shift. At start of shift pt was on hi-flow at 30L/70% with pt SpO2 96-98%. At approximately 2300 pt was titrated down to 25L/60% with SpO2 95-96%. At approximately 0100 pt was titrated down to 25L/50% with SpO2 92-95%. Pt shows no s/s of dyspnea and continues to have a respiratory rate of 16 with a good pleth.
[2016-04-14 05:00] VITALS: RESP 16; O2SAT 93
[2016-04-14] MEDS: Piperacillin-Tazo 3.375 Gm Inj 3.375 GM in Dextrose 5% Minibag Plus 50 ML IV SCH ×2 (06:00→07:47)
[2016-04-14] MEDS: Azithromycin Inj 500 MG in Dextrose 5% w/Vial Mate 250 ML IV SCH (07:46)
[2016-04-14 08:16] VITALS: BP 140/76; PULSE 81; RESP 14; O2SAT 92
[2016-04-14] MEDS: Furosemide Inj 100 MG in 0.9% Sodium Chloride 90 ML IVPUSH SCH (08:28)
[2016-04-14 08:29] VITALS: RESP 16; O2SAT 94
--- NOTE | 2016-04-14 10:47 | NUR ---
Palliative Care Request for reconsult Original order for Palliative Care received from Dr Klein 04/09/16 to assist with goals of care. Patient is an 85 year old woman with hx of CHF, HTN and stage IV CKD. She presented with complaint of worsening shortness of breath and generalized swelling over the past few weeks. Patient was admitted 04/06/16 for care of acute CHF exacerbation. The Palliative Care Team signed off service 04/09/16 as goals were clear at that time. Dr Stone has asked Palliative Care to reconsult on patient today 04/14/16. Dr Stone has asked that we discuss goals of care once again. Patient has been a resident at [facility]. DPOA#1 Gila Negrete (daughter) [phone] DPOA#2 Jennifer Cobos (daughter) [phone] Palliative Care to follow. Alize Godinez
[2016-04-14] MEDS ORDERED: fentaNYL 2,500 mCg/250 mL 2,500 MCG in IV Premix 1 EACH IV SCH (10:52)
[2016-04-14] MEDS ORDERED: Atropine 1% 5 mL Ophthalmic Solution PO PRN (10:55)
[2016-04-14] MEDS ORDERED: fentaNYL-PF 50 mCg/mL 2 mL Inj IVPUSH PRN (10:55)
[2016-04-14] MEDS ORDERED: Haloperidol 5 mg/mL Inj IVPUSH PRN (10:55)
[2016-04-14] MEDS: LORazepam 100 mg/100 mL NS 100 MG in IV Premix 100 EACH IV SCH (13:10)
--- NOTE | 2016-04-14 13:41 | PCM.PALLBR ---
Palliative Care Recommendation Summary of palliative recommendations: I spoke at length with her son and 2 daughters, reviewed her course to this point, and their wishes for ongoing care. The patient has told her family on multiple occasions that she wanted to be allowed to pass away peacefully and wanted no additional medical care. Family members are in full agreement that they want to support her wishes. We discussed additional comfort interventions/treatment. Discussed discontinuation of her high flow oxygen, reassuring her family that the patient would not "suffocate" (which had been a concern for them). After talking with family, I have initiated additional components of the end-of- life care order set. Will continue lorazepam drip and add fentanyl drip for comfort. She will be given glycopyrrolate for control of secretions. Other routine comfort medications per order set. Once meds are in place, will begin to titrate her high flow oxygen off over the course of the next hour. -DPOA/Advanced Directives/POLST: DO NOT RESUSCITATE/DO NOT RESUSCITATE/comfort Anticipate the patient will here in hospital within the next several hours -Family/emotional support: Superintendent Operations Division has been consulted and in to see patient and family. Palliative care givers made multiple visits through the day as well. Additional diagnoses with primary management by the medical/hospitalist team included: # Acute on chronic respiratory failure /ARDS / HCAP # Acute exacerbation diastolic heart failure # Pulmonary artery hypertension : Severe with pressure of 82 # Acute on Chronic normocytic anemia secondary chronic kidney disease, present on admission, active -Acute on chronic renal failure : Improving slowly # Healing left humeral neck fracture, present on admission # HTN : Problems: End of Life Preferences Transitioned to comfort care. Family at bedside. Goals of Care DNR/DNI/comfort care Disposition Anticipate patient will here in hospital in the next several hours Resuscitation Status Resuscitation Status: DNR/DNI:Do Not Resuscitate/Intubate POLST Updates/Changes Previous POLST?: Yes POLST Last Review Date: Apr 09, 2016 Artificially Admin Nutrition: No Artifical Nutrition by Tube POLST Discussed with: Patient, Health Care Agent (DPOAHC) POLST Review Outcome: New Form Completed (comfort care) . Advanced Care Planning Address: Comfort care Pain: None Total time 70 minutes; >50% face to face with patient and family, providing counselling regarding plans and recommendations, and in care coordination with her medical teams. Of the above total time, 50 minutes counseling for advanced care planning with the patient's family Palliative Brief Note Date of Service Apr 14, 2016 . Medical/critical care team requested palliative revisit patient. Prior to visiting, reviewed her updated records in the EMR in detail and spoke with her bedside nurse and medical team. She has deteriorated over the last several days and family has made the decision to transition to comfort care. Palliative medicine assistance was requested in management of end-of-life care. When I first arrived, multiple family members were at bedside. Patient is obtunded with shallow respirations and not responsive. Respirations appear agonal. Other vital signs noted. Skin pale warm and dry. Lungs with scattered crackles, heart sounds regular. I spoke at length with her son and 2 daughters, reviewed her course to this point, and their wishes for ongoing care. The patient has told her family on multiple occasions that she wanted to be allowed to pass away peacefully and wanted no additional medical care. Family members are in full agreement that they want to support her wishes. We discussed additional comfort interventions/treatment. Discussed discontinuation of her high flow oxygen, reassuring her family that the patient would not "suffocate" (which had been a concern for them). After talking with family, I have initiated additional components of the end-of- life care order set. Will continue lorazepam drip and add fentanyl drip for comfort. She will be given glycopyrrolate for control of secretions. Other routine medications per order set. Once meds are in place, will begin to titrate her high flow oxygen off over the course of the next hour. (I also spoke with qa internship, cardiology PA, cardiology nurses and ultimately [employer] tech, trying to find out how to discontinue patient's pacemaker (this at her family's request). In the end, I am told by the [employer] process development technician that they do not discontinue pacemakers (which was echoed by cardiology PA as well). Family advised and are accepting of that decision.) I made multiple return visits through the day to the room to check on patient's status and to reassure her family and answer questions/provide support. Armand Fitzgerald MD Apr 14, 2016 12:39
--- NOTE | 2016-04-14 17:26 | NUR ---
Time of She peacefully at 1504 surrounded by her family. Prior to and per Dr. Fitzgerald a Fentanyl drip was started with a bolus and Robinul IV. Her high flow O2 was decreased over a couple of hours starting about 1245. After , the family thanked staff for all their great care and then headed out to the parking lot to release some Happy Birthday balloons in honor of her 86th birthday and day of passing. Family left shortly after with her all her belongings except her upper dentures which will be taken with the body. Appropriate hospital personal, Dr. Fitzgerald/Dr. Stone, home, and donor line were notified. Security called to pecan picker the body. Her home is [facility]. However, they are in [place] and so a local home in [place] ([facility]) will come to claim the body today.
--- NOTE | 2016-04-14 19:12 | PCM.DC.MEX ---
Discharge Summary Date of Service Apr 14, 2016 Dates of Hospitalization Date of Hospital Admission Apr 06, 2016 at 21:17 Date of Expiration: Apr 14, 2016 Time of Expiration: 15:04 Providers: Admitting Physician: Mk Tomlinson MD Primary Care Physician: Other,Physician Attending Physician: Mk Tomlinson MD Diagnosis at Time of Acute on chronic congestive heart failure, secondary to Pulmonary hypertension, secondary to Obstructive sleep apnea, secondary to Obesity class III Additional Diagnosis Chronic kidney disease stage III Consultations Dr. Alexandro Little, pulmonary "04/13/16 ASSESSMENT: 1. Severe dyspnea with pulmonary hypertension and congestive heart failure. Patient is currently on Lasix infusion to try to minimize hemodynamic problems associated with the need for high preload due to her pulmonary artery hypertension and the need for some increase in flow across the pulmonic valve that is markedly decreasing left ventricular filling. 2. Dyspnea. The patient is on CPAP, using a BiPAP mask. Her CO2 is relatively normal at 42 and I think we could probably get by with a high-flow mask which will maybe be a bit more comfortable and just as efficacious as the BiPAP mask. I had a long discussion with the family regarding goals. Both they and the patient know she is dying. Wishes her last time to be comfortable. She has apparently made peace with all family relatives who have come to visit her and situation now is to keep her comfortable in her last time. PLAN: 1. High-flow mask, maybe starting at an FiO2 of 0.7 with a flow of 50 L a minute, titrating to effect. 2. Start Ativan infusion at 0.5 mg an hour after a 0.5 mg IV push. 3. P.r.n. fentanyl starting at 25 mg q.2 h. p.r.n. shortness of breath. Goal is patient comfort at this point." Dr. Unruly Fitzgerald, palliative care 02/15/17 assessment: "Summary of palliative recommendations: I spoke at length with her son and 2 daughters, reviewed her course to this point, and their wishes for ongoing care. The patient has told her family on multiple occasions that she wanted to be allowed to pass away peacefully and wanted no additional medical care. Family members are in full agreement that they want to support her wishes. We discussed additional comfort interventions/treatment. Discussed discontinuation of her high flow oxygen, reassuring her family that the patient would not "suffocate" (which had been a concern for them). After talking with family, I have initiated additional components of the end-of- life care order set. Will continue lorazepam drip and add fentanyl drip for comfort. She will be given glycopyrrolate for control of secretions. Other routine comfort medications per order set. Once meds are in place, will begin to titrate her high flow oxygen off over the course of the next hour. -DPOA/Advanced Directives/POLST: DO NOT RESUSCITATE/DO NOT RESUSCITATE/comfort Anticipate the patient will here in hospital within the next several hours -Family/emotional support: Shear Scrapman has been consulted and in to see patient and family. Palliative care givers made multiple visits through the day as well." Procedures XRay, CTs & MRIs Date of Service: 04/06/16 1820 PROCEDURE: X-RAY CHEST ONE VIEW, PORTABLE ([id number]) INDICATIONS: edema TECHNIQUE: One view of the chest was acquired. COMPARISON: [facility], , XR CHEST 1VW (PORTABLE), 02/22/2016, 19 :26. Surgical changes and devices: Right PICC line with the tip projecting in the lower SVC. Dual-lead cardiac pacer as before Lungs and pleura: No pneumothorax. Retrocardiac consolidation and low lung volumes. Mild patchy right basilar opacities. Cannot exclude small left pleural effusion Mediastinum: Mediastinal contours appear normal. Heart size is normal. Bones and chest wall: No suspicious bony lesions. Overlying soft tissues appear unremarkable. IMPRESSION: Dense retrocardiac consolidation suggesting pneumonia and/or aspiration/atelectasis. A small left pleural effusion cannot be excluded Diffuse ground glass opacities suspicious for early pulmonary edema. Please correlate clinically Dictated by: Brodercik Morris M.D. on 04/06/2016 at 18:52 Approved by: Broderick Morris M.D. on 04/06/2016 at 18:53 Ct scan of chest reviewed : Bilateral patchy confluent areas of opacity are present within the lungs, as well as bilateral pleural effusions. Findings are most suggestive of infection or inflammation, such as pneumonia. In addition, there could be an inclusion of underlying ARDS or edema. Cardiac Echo Impression Echocardiogram Report Name: JALEN QUEZADA Study Date: 04/07/2016 Height: 63 in Hospital Exam Location: [facility] Weight: 212 lb Gender: Female BSA: 2.0 m2 : 1930 Age: 85 yrs BP: 130/74 mmHg Reason For Study: ACUTE EXACERBATION OF CHF Ordering Physician: Performed By: [facility] Interpretation Summary Left ventricular wall thickness is at the upper limits of normal. The left ventricle is hyperdynamic. The ejection fraction is estimated to be 70-75%. Flattened septum is consistent with RV pressure/volume overload. The right ventricle is moderately dilated. Right ventricular systolic function is at the lower limits of normal. The right ventricular wall motion is normal. The right ventricular systolic pressure is estimated at 82 mmHg assuming a right atrial pressure of 15 mm Hg. The left atrium is moderately dilated. The right atrium is mildly dilated. There is mild to moderate mitral regurgitation. There is no hemodynamically significant valvular aortic stenosis. There is moderate to severe tricuspid regurgitation. There is no other significant valvular heart disease. The aortic root is normal size. Moderate pleural effusion. . Brief History History of Present Illness (per admission note): Pt is an 85 y/o F with hx of CHF, HTN Metoprolol 50mg BID, and Amlodipine 5 mg daily, stage IV CKD base line creatinine 1.75, presented with complaint of worsening shortness of breath and generalized swelling over the past 2 weeks. Of note patient's family also states that she has gained approximately 30 pounds since February 05 when she last seen her primary care physician. Patient reports that she tends to sleep better propped up at night. Family reports that she had her last echo several years ago. Patient also has a healing left humeral neck fracture and right knee patellar fracture that she sustained in a fall on Feb 22, 2016. In the ED: Patient was given Lasix 40 mg IV. ECG showed ventricularly paced rhythm, rate 60, T wave inversions in I and AvL, no acute ischemic changes, no change from prior ECGs. CXR showed a dense retrocardiac consolidation suggesting pneumonia and/or aspiration/atelectasis. A small left pleural effusion cannot be excluded. Diffuse ground glass opacities suspicious for early pulmonary edema. She was admitted for acute exacerbation of CHF night of 04/06. . Hospital Course 85 y/o F with hx of CHF (last echo was several years ago and not in [facility] system) , HTN, stage IV CKD base line creatinine 1.75, presented with complaint of worsening shortness of breath and generalized swelling over the past 2 weeks. Of note patient's family also states that she has gained approximately 30 pounds since February 05. Patient was given 40 mg of Lasix in the ED and was admitted for acute exacerbation of CHF. Patient experienced continued debility and significant adverse symptoms. Hospital course and decision to pursue comfort care is described in consultants notes above. She with family at bedside. Exam Test 04/06/16 16:18 04/06/16 18:15 04/06/16 22:21 04/07/16 06:00 Hold Green Top Tube Received (Received) Prothrombin Time 11.2sec (8.1-12.5) Prothromb Time International Ratio 1.05ratio Activated Partial Thromboplast Time 26.8sec (22.8-33.0) Troponin T < 0.010ug/L (0.0-0.011) Reticulocyte Count,Calculated 2.7% (0.6-2.6) Iron Level 20ug/dL (35-150) Total Iron Binding Capacity 256ug/dL (250-450) Percent Iron Saturation 8%sat (15-50) Unsaturated Iron Binding 235.9ug/dL Ferritin 279ng/mL (13-150) Urine Color Straw (YELLOW) Urine Appearance Hazy (CLEAR,HAZY) Urine pH 6.0 (5.0-8.0) Urine Specific [place] 1.010 (1.003-1.035) Urine Protein Tracemg/dL (NEG,TRACE) Urine Glucose (UA) Negativemg/dL (NEGATIVE) Urine Ketones Negativemg/dL (NEGATIVE) Urine Occult Blood Negative (NEGATIVE) Urine Nitrite Negative (NEGATIVE) Urine Bilirubin Negative (NEGATIVE) Urine Urobilinogen Normalmg/dL (NORMAL) Urine Leukocyte Esterase Moderate (NEGATIVE) Urine RBC 0-2/hpf (0-2) Urine WBC 11-50/hpf (0-5) Urine Epithelial Cells Occasional/hpf (NONE-MOD) Urine Crystals None seen (NONE SEEN) Urine Bacteria Few/hpf (NONE-FEW) Urine Hyaline Casts Occasional/lpf (NONE) Urine Granular Casts None seen (NONE SEEN) Urine Waxy Casts None seen (NONE SEEN) Urine Red Blood Cell Casts None seen (NONE SEEN) Urine White Blood Cell Casts None seen (NONE SEEN) Urine Mucus None seen (None Seen) Urine Trichomonas None seen (NONE SEEN) Urine Yeast Few (NONE SEEN) Urinalysis Comment Transitional epi Urine Culture Reflexed Indicated Hemoglobin A1c 6.1% (4.8-5.6) Uric Acid 9.3mg/dL (2.6-7.2) Prealbumin 15mg/dL (20-40) Triglycerides Level 67mg/dL (0-149) Cholesterol Level 94mg/dL (100-199) LDL Cholesterol, Calculated 30.600mg/dL (0-99) VLDL Cholesterol 13.400mg/dL HDL Cholesterol 50mg/dL (>39) Cholesterol/HDL Ratio 1.88 (0.0-4.4) Vitamin B12 Level 1888pg/mL (211-946) Folate 5.3ng/mL (>3.0) Procalcitonin 0.09ng/mL (0.00-0.08) Thyroid Stimulating Hormone (TSH) 6.480uIU/mL (0.450-4.500) Test 04/07/16 09:45 04/08/16 11:00 04/10/16 04:55 04/12/16 04:11 Hold Urine Received (Received) D-Dimer 1.6mg/L (<0.50) Ionized Calcium (Calculated) 3.47mg/dL (3.5-5.2) Pro-B-Type Natriuretic Peptide 11478ln/mL (0-738) Phosphorus Level 3.6mg/dL (2.5-4.9) Magnesium Level 1.6mg/dL (1.6-2.6) Free Thyroxine 1.05ng/dL (0.82-1.77) Test 04/13/16 05:00 White Blood Count 9.9th/mm3 (3.8-10.1) Red Blood Count 3.23mil/mm3 (3.90-5.20) Hemoglobin 8.8g/dL (12.0-15.6) Hematocrit 28.6% (35.0-46.0) Mean Corpuscular Volume 88.5fL (81-100) Mean Corpuscular Hemoglobin 27.2pg (27.0-35.0) Mean Corpuscular Hemoglobin Concent 30.8% (32.0-37.0) Red Cell Distribution Width 16.0% (12.3-15.4) Platelet Count 224bil/L (150-400) Neutrophils (%) (Auto) 79.6% (40-74) Lymphocytes (%) (Auto) 9.7% (14-46) Monocytes (%) (Auto) 9.7% (4-12) Eosinophils (%) (Auto) 0.5% (0-5) Basophils (%) (Auto) 0.2% (0-3) Sodium Level 135mEq/L (134-144) Potassium Level 3.7mEq/L (3.5-5.2) Chloride Level 89mEq/L (97-108) Carbon Dioxide Level 34mmol/L (18-29) Blood Urea Nitrogen 22mg/dL (8-27) Creatinine 1.31mg/dL (0.57-1.00) Estimat Glomerular Filtration Rate 56mL/min (>59) Glucose Level 121mg/dL (60-99) Calcium Level 7.6mg/dL (8.5-10.1) Total Bilirubin 1.0mg/dL (0.0-1.2) Aspartate Amino Transf (AST/SGOT) 21U/L (0-50) Alanine Aminotransferase (ALT/SGPT) 14U/L (0-32) Alkaline Phosphatase 66U/L (25-165) Total Protein 5.8g/dL (6.4-8.4) Albumin 3.6g/dL (3.4-5.0) Time spent 35 minutes Sumeet Stone MD Apr 14, 2016 19:12
== END 2016-04-14 15:04 | disposition expired | DRG 291 ==
LOC: SED 17:18 → OSC 21:17 → PCC 04-11 12:30 → CCU 04-11 12:36 → PCC 04-12 18:12
PROVIDERS: ADMIT Hospitalist; ATTEND Hospitalist
PROC: 30233N1 Transfusion of Nonautologous Red Blood Cells into Peripheral Vein, Percutaneous Approach (ICD-10-PCS; 2016-04-08)
PROC: 30233N1 Transfusion of Nonautologous Red Blood Cells into Peripheral Vein, Percutaneous Approach (ICD-10-PCS; 2016-04-09)
PROC: 4A033R1 Measurement of Arterial Saturation, Peripheral, Percutaneous Approach (ICD-10-PCS; principal; 2016-04-11)
PROC: 5A09457 Assistance with Respiratory Ventilation, 24-96 Consecutive Hours, Continuous Positive Airway Pressure (ICD-10-PCS; 2016-04-11)
DX: I50.33 Acute on chronic diastolic (congestive) heart failure (principal); J96.22 Acute and chronic respiratory failure with hypercapnia; J96.21 Acute and chronic respiratory failure with hypoxia; I13.0 Hypertensive heart and chronic kidney disease with heart failure and stage 1 through stage 4 chronic kidney disease, or unspecified chronic kidney disease; E87.1 Hypo-osmolality and hyponatremia; N17.9 Acute kidney failure, unspecified; I27.2 Other secondary pulmonary hypertension; G47.33 Obstructive sleep apnea (adult) (pediatric); N18.3 Chronic kidney disease, stage 3 (moderate); D63.1 Anemia in chronic kidney disease; Z95.0 Presence of cardiac pacemaker; Z66 Do not resuscitate; E78.5 Hyperlipidemia, unspecified; F41.9 Anxiety disorder, unspecified; E66.9 Obesity, unspecified; Z68.37 Body mass index [BMI] 37.0-37.9, adult; I27.81 Cor pulmonale (chronic); Z51.5 Encounter for palliative care